=== PATIENT | female | born 1990 | race Caucasian/White ===

== ENCOUNTER 2019-01-01 08:02 | Emergency (ER) | payer BC, SELFPAY ==
[2019-01-01 08:03] VITALS: BP 208/98; PULSE 98; RESP 18; TEMP 36.6; O2SAT 98; BMI 42.9
--- NOTE | 2019-01-01 08:11 | US_ITS ---
STUDY: ULTRASOUND OF THE FEMALE PELVIS REASON FOR EXAM: Female, 28 years old. Menorrhagia. LMP: November 29, 2018. TECHNIQUE: Transvaginal TECHNICAL QUALITY: Adequate. COMPARISON: None. FINDINGS: The uterus is anteverted and is in a midline position. The uterus measures 6.2 x 3.5 x 2.9 cm. Normal uterine cervix. The endometrium measures 2 mm in thickness, and is hyperechoic. There is no demonstrated endometrial mass. There is no demonstrated myometrial mass. I.U.D. - The patient does not have an I.U.D. The right ovary is visualized. The right ovary measures 2.5 x 1.7 x 1.7 cm. There is no right ovarian cyst or ovarian mass. There is no visualized right adnexal mass or complex lesion. There is normal arterial and normal venous vascularity. The left ovary is visualized. The left ovary measures 2.8 x 1.9 x 1.7 cm. There is no left ovarian cyst or ovarian mass. There is no visualized left adnexal mass or complex lesion. There is normal arterial and normal venous vascularity. There is no fluid in the cul-de-sac. US/Transvaginal Non- IMPRESSION: Normal female pelvis. Electronically Signed: Vinny Laws MD at 9:46 EDT , Service support ,
--- NOTE | 2019-01-01 08:27 | ED.DCSUM_ITS ---
History of Present Illness Chief Complaint: Vag Bleeding Informant: Patient Onset: Month(s) Context: Gradual Onset Timing: Waxes and wanes Current Severity: Mild Maximum Severity: Moderate Narrative: Patient presents with more than 1 month of vaginal bleeding. She states she has bleeding daily. Sometimes she will have spotting sometimes heavy bleeding. She denies clots. She sometimes has abdominal cramping. She saw her primary care physician 2 weeks ago for this. Urine test in the office was negative. She was told to take another test in 1 week if she was still bleeding. She did this 1 week ago and it was also negative. Patient states prior to this her menstrual cycles were very regular. She is on oral contraceptive pills and does not remember missing significant doses. No history of bleeding disorder. Past Medical History - Allergies and Home Meds Allergies/Adverse Reactions: Allergies No Known Allergies Allergy (Verified 01/01/19 08:04) Primary Care Physician: Martinez Chappell [Primary Care Provider] - Prior records reviewed: Yes Past Medical History: - - Reviewed Surgical History: tonsillectomy Smoking Status: Never smoker Review of Systems General: Denies: Chills, Fever Eyes: Denies: Visual changes - bilaterally ENT: Denies: Bilateral ear pain Cardiovascular: Denies: Chest pain Respiratory: Denies: Dyspnea, Cough Gastrointestinal: Reports: Abdominal pain - Mild lower abdominal cramping. Denies: Nausea, Vomiting, Diarrhea Genitourinary: Denies: Dysuria Musculoskeletal: Denies: Back pain Skin: Denies: Rash Neurological: Denies: Headache Hematologic: Denies: Easy bruising, Easy bleeding Allergy: Denies: Uticaria Physical Exam Vital Signs/Narrative: Vital Signs Temp Pulse Resp BP Pulse Ox 01/01/19 08:03 97.8 F 98 18 208/98 H 98 Inital Vital Signs reviewed: Yes General: Well nourished, Well developed Head: Normocephalic ENT: Moist mucous membranes Neck: Supple Cardiovascular: Regular rate, Regular rhythm Respiratory: No distress, CTA bilaterally Abdomen: Soft, Nontender, Normal bowel sounds : - - Pelvic examination reveals no blood on exam. Cervix appears normal. No lesions or abrasions are noted. No discharge. Bimanual examination is nontender with no obvious masses. Extremities: Nontender, No edema Skin: Normal color, No rash Neurological: Alert, Oriented x3 Psychological: Normal affect Diagnostic/Tx/Re-eval Impressions Transvaginal US 01/01/19 08:11 IMPRESSION: Normal female pelvis. Electronically Signed: Vinny Laws MD at 9:46 EDT , Service support , 01/01/19 08:11 Transvaginal Non- [US] Stat Laboratory Results 01/01/19 01/01/19 01/01/19 08:20 08:20 08:20 WBC 10.6 RBC 4.42 Hgb 11.8 L Hct 37.4 MCV 84.6 MCH 26.7 L MCHC 31.6 L RDW Std Deviation 42.8 RDW Coeff of Khadar 13.8 Plt Count 432 MPV 9.5 Immature Gran % (Auto) 0.400 Neut % (Auto) 55.2 Lymph % (Auto) 35.0 [place] % (Auto) 7.1 Eos % (Auto) 1.6 Baso % (Auto) 0.7 Absolute Neuts (auto) 5.9 Absolute Lymphs (auto) 3.71 Nucleated RBC % 0 Sodium 139 Potassium 3.7 Chloride 104 Carbon Dioxide 25.0 Anion Gap 10 BUN 11 Creatinine 0.75 Estim Creat Clear Calc 98.16 Est GFR (MDRD) Af Amer 120 Est GFR (MDRD) Non-Af 99 BUN/Creatinine Ratio 14.7 Glucose 110 H Calcium 8.9 Serum , Qual NEGATIVE Urine Color Urine Clarity Urine pH Ur Specific [place] Urine Protein Urine Glucose (UA) Urine Ketones Urine Occult Blood Urine Nitrite Urine Bilirubin Urine Urobilinogen Ur Leukocyte Esterase Urine RBC Urine WBC Ur Squamous Epith Cells Urine Bacteria Urine Mucus 01/01/19 08:34 WBC RBC Hgb Hct MCV MCH MCHC RDW Std Deviation RDW Coeff of Khadar Plt Count MPV Immature Gran % (Auto) Neut % (Auto) Lymph % (Auto) [place] % (Auto) Eos % (Auto) Baso % (Auto) Absolute Neuts (auto) Absolute Lymphs (auto) Nucleated RBC % Sodium Potassium Chloride Carbon Dioxide Anion Gap BUN Creatinine Estim Creat Clear Calc Est GFR (MDRD) Af Amer Est GFR (MDRD) Non-Af BUN/Creatinine Ratio Glucose Calcium Serum , Qual Urine Color Yellow Urine Clarity Clear Urine pH 6.0 Ur Specific [place] 1.025 Urine Protein 15 H Urine Glucose (UA) Normal Urine Ketones 5 H Urine Occult Blood 150 H Urine Nitrite Negative Urine Bilirubin Negative Urine Urobilinogen Normal Ur Leukocyte Esterase 25 H Urine RBC 0-5 SEEN Urine WBC 0-5 SEEN Ur Squamous Epith Cells 0-5 SEEN Urine Bacteria 1+ Urine Mucus 2+ - Medical Decision Making Patient was given a dose of Toradol for cramping. On repeat evaluation she is resting comfortably. Blood pressure at time of discharge is 137/84. I discussed her test results with her. Her endometrial lining is only 2 mm thick at this point I do not anticipate much heavy bleeding. She does not have an MEDICAL INFORMATION OFFICER and will be referred to Dr. Ray, on-call for no doc. ED Disposition - Plan for ED Patient: Disposition: Home or Assisted Living Instructions: Menorrhagia Referrals: Martinez Chappell [Primary Care Provider] - Nay Ray MD [STAFF PHYSICIAN] - As soon as possible
[2019-01-01 08:34] LABS: Absolute Lymphocyte Count 3.71 X10^3/uL (0.83-4.51); Absolute Neutrophil Count 5.9 X10^3/uL (2.0-7.7); Basophil# 0.07 X10^3/uL; Basophil% 0.7 % (0-1); Eosinophil# 0.17 X10^3/uL; Eosinophils% 1.6 % (0-5); Hematocrit 37.4 % (37-47); Hemoglobin 11.8 g/dL (12.0-15.0); Lymphocyte # 3.71 X10^3/ul (4.0); Mean Corp Hgb Conc 31.6 g/dL (32-36); Mean Corpuscular Hgb 26.7 pg (27.0-32.0); Mean Corpuscular Volume 84.6 fL (81-99); Mean Platelet Vol. 9.5 fl (6.2-12.0); Monocyte# 0.75 X10^3/uL; Monocyte% 7.1 % (0-10); NRBC Flagged by Analyzer 0 % (0-5); Neutrophil # 5.85 X10^3/uL (2.7-7.7); Neutrophil % 55.2 % (47-70); Platelet Count 432 K/mm3 (150-450); RBC Distribution Width CV 13.8 % (11.6-14.6); RBC Distribution Width SD 42.8 fl (35.1-43.9); Red Blood Count 4.42 M/mm3 (4.2-5.4); White Blood Count 10.6 K/mm3 (4.4-11.0)
[2019-01-01 08:40] LABS: Internal QC Validated? YES +Cl - CLEAR BKGD; Pregnancy, Serum, hCG Quali. NEGATIVE Negative
[2019-01-01 08:42] LABS: Anion Gap 10 (5-15); BUN 11 mg/dL (7-18); BUN/Creat Ratio 14.7 RATIO (10-20); Calcium,Total 8.9 mg/dL (8.5-10.1); Chloride 104 mmol/L (98-107); Creatinine, Serum 0.75 mg/dL (0.55-1.02); EST Glomerular Filtration Rate 99 mL/min (>60); Est Glom Filt Rate - Afr Amer 120 mL/min (>60); Estimated Creatinine Clearance 98.16 ml/min; Glucose 110 mg/dL (74-106); Potassium 3.7 mmol/L (3.5-5.1); Sodium Level 139 mmol/L (136-145)
--- NOTE | 2019-01-01 08:47 | ED.RN ---
PT REQUESTING PAIN MEDICATION. DR EVANS AWARE. WAITING SOCIAL WORK. DOES NOT FEEL COMFORTABLE GIVEIN PT NARCOTICS FOR HIS CHRONIC PAIN. PT WAS GIVEN HIS NEURONIN AND BACLOFEN.
[2019-01-01 08:51] LABS: Color, Urine Yellow (Yellow); Glucose, Dipstick Normal (Normal); Ketone-Dipstick 5 mg/dl (Negative); Leukocyte Esterase-Dipstick 25 /ul (Negative); Nitrite-Dipstick Negative (Negative); Occult Blood-Urine 150 /ul (Negative); Protein-Dipstick 15 mg/dl (Negative); Specific Gravity, Urine 1.025 (1.002-1.030); Urine Bilirubin Dipstick Negative (Negative); Urine Clarity Clear (Clear); Urine Urobilinogen Normal (Normal)
[2019-01-01 09:00] VITALS: BP 158/90; PULSE 76; RESP 16
[2019-01-01 09:02] LABS: Bacteria 1+ /hpf (None Seen); Mucous, Urine 2+ /hpf (<or=2+); Red Blood Cells-Urine 0-5 SEEN /hpf (0-5); Squamous Epithelial Cells - UA 0-5 SEEN /hpf (5-10); White Blood Cells 0-5 SEEN /hpf (0-5)
[2019-01-01] MEDS: Ketorolac 30 MG/ML Syringe IV (09:07)
[2019-01-01 09:52] VITALS: BP 137/64
== END 2019-01-01 09:59 | disposition home or self-care (01) ==
PROVIDERS: Emergency Provider Emergency Medicine; Family Provider Family Medicine; PCP Family Medicine
DX: N92.0 Excessive and frequent menstruation with regular cycle (principal)
CPT/HCPCS: 76830; 80048; 81001; 84703; 85025; 96374; 99283; A4216

== ENCOUNTER 2019-03-26 18:21 | Emergency (ER) | payer SELFPAY ==
[2019-01-12 14:21] VITALS: BMI 42.9
[2019-03-26 18:22] VITALS: BP 154/112; PULSE 104; RESP 17; TEMP 36; O2SAT 97; BMI 46.4
--- NOTE | 2019-03-26 18:37 | ED.DCSUM_ITS ---
History of Present Illness Chief Complaint: Fall Informant: Patient Onset: Today Current Severity: Mild Maximum Severity: Mild Narrative: Patient presents after a fall. She stepped out of her house to go to work and fell on the icy steps. She landed on her buttocks. She complains of pain over the tailbone. She denies thoracic or lumbar pain. Pain does not shoot down her legs. Past Medical History - Allergies and Home Meds Allergies/Adverse Reactions: Allergies No Known Allergies Allergy (Verified 03/26/19 18:21) Primary Care Physician: Martinez Chappell [Primary Care Provider] - Past Medical History: None Surgical History: tonsillectomy Smoking Status: Never smoker Review of Systems General: Denies: Chills, Fever Eyes: Denies: Visual changes - bilaterally ENT: Denies: Bilateral ear pain Cardiovascular: Denies: Chest pain Respiratory: Denies: Dyspnea Gastrointestinal: Denies: Abdominal pain, Nausea, Vomiting Musculoskeletal: Reports: Back pain Skin: Denies: Rash Neurological: Denies: Weakness, Parasthesia Hematologic: Denies: Easy bruising Allergy: Denies: Uticaria Physical Exam Vital Signs/Narrative: Vital Signs Temp Pulse Resp BP Pulse Ox 03/26/19 18:22 96.8 F L 104 H 17 154/112 H 97 Inital Vital Signs reviewed: Yes General: Well nourished, Well developed Head: Normocephalic ENT: Moist mucous membranes Neck: Supple Cardiovascular: Regular rate, Regular rhythm Respiratory: No distress, CTA bilaterally Abdomen: Soft, Nontender Back: - - No tenderness of the thoracic or lumbar spine. Focal tenderness over the inferior sacrum and coccyx. Extremities: Nontender Skin: Normal color, No rash Neurological: Alert, Oriented x3, Normal Strength, Normal Sensation Psychological: Normal affect Diagnostic/Tx/Re-eval - Medical Decision Making I discussed with the patient that we could do x-rays of her tailbone, however it would not change our overall management. She would prefer to decline the x- rays. She will be given prescriptions for naproxen. She was instructed on use of stool softeners. She be given a work note for tonight. ED Disposition - Plan for ED Patient: Disposition: Home or Assisted Living Diagnosis: Fall, Coccyx contusion Instructions: CONTUSION, Coccyx/Sacrum Prescriptions: Naproxen [Naprosyn] 500 mg PO BID PRN PRN #20 tablet PRN Reason: Pain Score 4-10/10 Referrals: Martinez Chappell [Primary Care Provider] - 5-7 Days
[2019-03-26] MEDS: Naproxen 500 MG Tablet PO (18:44)
== END 2019-03-26 18:53 | disposition home or self-care (01) ==
LOC: ED 18:44
PROVIDERS: Emergency Provider Emergency Medicine; Family Provider Family Medicine; PCP Family Medicine
DX: S30.0XXA Contusion of lower back and pelvis, initial encounter (principal); W00.1XXA Fall from stairs and steps due to ice and snow, initial encounter; Y93.01 Activity, walking, marching and hiking; Y92.008 Other place in unspecified non-institutional (private) residence as the place of occurrence of the external cause
CPT/HCPCS: 99283

== ENCOUNTER → 2019-06-16 12:50 | Outpatient (CLI) | payer MEDICAID, SELFPAY ==
[2019-06-16 12:02] VITALS: BMI 46.4
[2019-06-16 13:26] LABS: Absolute Lymphocyte Count 2.64 X10^3/uL (0.83-4.51); Absolute Neutrophil Count 7.6 X10^3/uL (2.0-7.7); Basophil# 0.03 X10^3/uL; Basophil% 0.3 % (0-1); Eosinophil# 0.09 X10^3/uL; Eosinophils% 0.8 % (0-5); Hematocrit 37.8 % (37-47); Hemoglobin 12.2 g/dL (12.0-15.0); Lymphocyte # 2.64 X10^3/ul (4.0); Lymphocyte % 24.2 % (19-41); Mean Corp Hgb Conc 32.3 g/dL (32-36); Mean Corpuscular Hgb 27.5 pg (27.0-32.0); Mean Corpuscular Volume 85.1 fL (81-99); Mean Platelet Vol. 9.3 fl (6.2-12.0); Monocyte# 0.49 X10^3/uL; Monocyte% 4.5 % (0-10); NRBC Flagged by Analyzer 0 % (0-5); Neutrophil # 7.61 X10^3/uL (2.7-7.7); Neutrophil % 69.8 % (47-70); Platelet Count 476 K/mm3 (150-450); RBC Distribution Width CV 14.8 % (11.6-14.6); RBC Distribution Width SD 45.4 fl (35.1-43.9); Red Blood Count 4.44 M/mm3 (4.2-5.4); White Blood Count 10.9 K/mm3 (4.4-11.0)
[2019-06-16 13:41] LABS: Glucose Challenge Gest 1H 50g 125 mg/dL (70-140)
[2019-06-16 14:27] LABS: HIV - WCH Non-Reactive (Nonreactive); Hepatitis B Surface Antigen Non-Reactive (Nonreactive); Hepatitis C Antibody Non-Reactive (Nonreactive); Rubella IgG 181.3 IU/mL
[2019-06-16 16:28] LABS: Amphetamine Urine VISTA NEGATIVE (<1000 ng/mL); Barbiturate Urine VISTA NEGATIVE (< 200 ng/mL); Benzodiazepine Urine VISTA NEGATIVE (< 200 ng/mL); Cocaine Urine VISTA NEGATIVE (< 300 ng/mL); Ecstacy Urine VISTA NEGATIVE (< 500 ng/mL); Methadone Urine VISTA NEGATIVE (< 300 ng/mL); PCP Urine VISTA NEGATIVE (< 25 ng/mL); THC Urine VISTA NEGATIVE (< 50 ng/mL); Vista UDS pH Range 6
[2019-06-16 17:46] LABS: Chlamydia Trachomatis by PCR Negative (Negative); Neisserai gonorrhoeae by PCR Negative (Negative); Probe Check PASS; Sample Adequacy Control PASS; Specimen Processing Control PASS
[2019-06-17 04:37] LABS: Rapid Plasmin Reagin (RPR) NONREACTIVE (NONREACTIVE)
[2019-06-23 12:06] LABS: HPV Reflexed? NOT INDICATED
== END ==
PROVIDERS: PCP Family Medicine; Referring Provider Obstetrics & Gynecology; Visit Provider Obstetrics & Gynecology
DX: O99.210 Obesity complicating pregnancy, unspecified trimester (principal); E66.9 Obesity, unspecified; Z12.4 Encounter for screening for malignant neoplasm of cervix; Z3A.00 Weeks of gestation of pregnancy not specified
CPT/HCPCS: 36415; 80307; 82950; 85025; 86592; 86703; 86762; 86803; 86850; 86900; 86901; 87086; 87088; 87340; 87491; 87591; 88175; G0145

== ENCOUNTER → 2019-06-30 09:02 | Outpatient (CLI) | payer MEDICAID, SELFPAY ==
[2019-06-16 12:02] VITALS: BMI 46.4
--- NOTE | 2019-06-30 09:05 | US_ITS ---
STUDY: FIRST TRIMESTER OBSTETRICAL ULTRASOUND REASON FOR EXAM: Female, 29 years old DATING LMP: April 28, 2019. TECHNIQUE: Transvaginal TECHNICAL QUALITY: Adequate. PRIOR ULTRASOUND: None. FINDINGS: There is visualization of a single gestational sac in a normal intrauterine position. There is a visualized yolk sac. The yolk sac measures 3 mm. The placenta is non-visualized. There is visualization of a live embryo. The crown-rump length (CRL) measures 1.4 cm, indicating an estimated gestational age (EGA) of 7 weeks, 5 days. There is demonstrated cardiac activity with a heart rate of 150 bpm. The estimated gestation age (EGA) by LMP is 9 weeks, 0 days. The estimated date of delivery (RONALDO) by LMP is February 02, 2020. The estimated gestation age (EGA) by US is 7 weeks, 5 days. The estimated date of delivery (RONALDO) by US is February 11, 2020. The uterus measures 9.9 cm x 6.4 cm x 5.6 cm. There is no demonstrated uterine fibroid. The cervix is closed. The right ovary measures 3.1 cm x 1.7 cm x 2.1 cm. There is no right ovarian cyst. There is no visualized right adnexal mass or complex lesion. The left ovary measures 3.8 cm x 2 cm x 2.3 cm. There is no left ovarian cyst. There is no visualized left adnexal mass or complex lesion. There is no fluid in the cul de sac. US/Transvaginal w/Preg US IMPRESSION: Single live intrauterine gestation with a mean gestational age of 7 weeks and 5 days. Electronically Signed: Nicanor Pratt, at 10:45 EDT , Service support ,
== END ==
PROVIDERS: PCP Family Medicine; Referring Provider Obstetrics & Gynecology; Visit Provider Obstetrics & Gynecology
DX: Z34.91 Encounter for supervision of normal pregnancy, unspecified, first trimester (principal)
CPT/HCPCS: 76817

== ENCOUNTER → 2019-07-26 11:54 | Outpatient (CLI) | payer MEDICAID, SELFPAY ==
[2019-07-26 11:28] VITALS: BMI 46.4
[2019-07-26 12:58] LABS: NATERA MAILED SPECIMEN
== END ==
PROVIDERS: PCP Family Medicine; Referring Provider Nurse Practitioner Women's Health; Visit Provider Nurse Practitioner Women's Health
DX: Z34.81 Encounter for supervision of other normal pregnancy, first trimester (principal)
CPT/HCPCS: 36415

== ENCOUNTER → 2019-08-31 13:01 | Outpatient (CLI) | payer MEDICAID, SELFPAY ==
[2019-08-23 11:49] VITALS: BMI 46.4
== END ==
PROVIDERS: PCP Family Medicine; Referring Provider Obstetrics & Gynecology; Visit Provider Obstetrics & Gynecology
DX: Z36.9 Encounter for antenatal screening, unspecified (principal)

== ENCOUNTER → 2019-09-21 18:03 | Outpatient (CLI) | payer MEDICAID, SELFPAY ==
[2019-09-21 11:26] VITALS: BMI 46.4
== END ==
PROVIDERS: PCP Family Medicine; Visit Provider Obstetrics & Gynecology
DX: Z11.59 Encounter for screening for other viral diseases (principal)
CPT/HCPCS: 87635; G2023; U0003

== ENCOUNTER → 2019-11-15 12:38 | Outpatient (CLI) | payer MEDICAID, SELFPAY ==
[2019-10-18 13:12] VITALS: BMI 49.7
[2019-11-15 12:54] LABS: Absolute Lymphocyte Count 2.09 X10^3/uL (0.83-4.51); Absolute Neutrophil Count 9.1 X10^3/uL (2.0-7.7); Basophil# 0.03 X10^3/uL; Basophil% 0.3 % (0-1); Eosinophil# 0.11 X10^3/uL; Eosinophils% 0.9 % (0-5); Hematocrit 33.4 % (37-47); Hemoglobin 10.5 g/dL (12.0-15.0); Lymphocyte # 2.09 X10^3/ul (4.0); Lymphocyte % 17.6 % (19-41); Mean Corp Hgb Conc 31.4 g/dL (32-36); Mean Corpuscular Hgb 26.6 pg (27.0-32.0); Mean Corpuscular Volume 84.8 fL (81-99); Mean Platelet Vol. 9.8 fl (6.2-12.0); Monocyte% 4.2 % (0-10); NRBC Flagged by Analyzer 0 % (0-5); Neutrophil # 9.07 X10^3/uL (2.7-7.7); Neutrophil % 76.2 % (47-70); Platelet Count 392 K/mm3 (150-450); RBC Distribution Width CV 14.7 % (11.6-14.6); RBC Distribution Width SD 45.2 fl (35.1-43.9); Red Blood Count 3.94 M/mm3 (4.2-5.4); White Blood Count 11.9 K/mm3 (4.4-11.0)
[2019-11-15 13:25] LABS: Glucose Challenge Gest 1H 50g 117 mg/dL (70-140)
== END ==
PROVIDERS: PCP Family Medicine; Referring Provider Obstetrics & Gynecology; Visit Provider Obstetrics & Gynecology
DX: Z34.90 Encounter for supervision of normal pregnancy, unspecified, unspecified trimester (principal)
CPT/HCPCS: 36415; 82950; 85025

== ENCOUNTER 2019-12-01 11:15 | Outpatient (CLI) | payer MEDICAID, SELFPAY ==
[2019-12-01] VITALS (11 sets, daily range): BP systolic 105–135; BP diastolic 56–76; PULSE 86–101; BMI 49.7; BMI 49.9
[2019-12-01 12:16] LABS: Protein, Urine (Random) 13.5 mg/dL (<11.9); Protein:Creat Ratio 110 mg/g CRE (0-200)
[2019-12-01 12:21] LABS: Hematocrit 30.9 % (37-47); Hemoglobin 9.7 g/dL (12.0-15.0); Mean Corp Hgb Conc 31.4 g/dL (32-36); Mean Corpuscular Hgb 26.2 pg (27.0-32.0); Mean Corpuscular Volume 83.5 fL (81-99); Mean Platelet Vol. 9.7 fl (6.2-12.0); Platelet Count 382 K/mm3 (150-450); RBC Distribution Width CV 14.9 % (11.6-14.6); RBC Distribution Width SD 45.2 fl (35.1-43.9); White Blood Count 10.1 K/mm3 (4.4-11.0)
[2019-12-01 12:29] LABS: International Normalized Ratio 1.1; Prothrombin Time (Protime)PT. 13.7 SECONDS (11.7-14.9)
[2019-12-01 13:08] LABS: AST(SGOT) 12 U/L (15-37); Alanine Aminotransfer ALT/SGPT 13 U/L (13-56); EST Glomerular Filtration Rate 155 mL/min (>60); Est Glom Filt Rate - Afr Amer 187 mL/min (>60); Estimated Creatinine Clearance 139.81 ml/min; Uric Acid 4.6 mg/dL (2.6-6.0)
--- NOTE | 2019-12-02 10:09 | OB.TRI.PN ---
Progress Notes Date of Service: 12/01/19 Progress Note: 29yo G1 at 29 weeks gestation sent to triage for evaluation of elevated blood pressures. BPs were mild range in the office, but were normal throughout her triage course. Asymptomatic. PreE labs sent and negative. NST was reactive. Discharged to home in stable condition with close outpatient follow-up. Laboratory Studies: Laboratory Tests 12/01/19 12/01/19 12/01/19 Range/Units 12:00 12:00 12:00 WBC 10.1 (4.4-11.0) K/mm3 RBC 3.70 L (4.2-5.4) M/mm3 Hgb 9.7 L (12.0-15.0) g/dL Hct 30.9 L (37-47) % MCV 83.5 (81-99) fL MCH 26.2 L (27.0-32.0) pg MCHC 31.4 L (32-36) g/dL RDW Std Deviation 45.2 H (35.1-43.9) fl RDW Coeff of Khadar 14.9 H (11.6-14.6) % Plt Count 382 (150-450) K/mm3 MPV 9.7 (6.2-12.0) fl PT 13.7 (11.7-14.9) SECONDS INR 1.1 APTT 31.0 (24.1-36.2) Seconds Creatinine 0.50 L (0.55-1.02) mg/dL Estim Creat Clear Calc 139.81 ml/min Est GFR (MDRD) Af Amer 187 (>60) mL/min Est GFR (MDRD) Non-Af 155 (>60) mL/min Uric Acid 4.6 (2.6-6.0) mg/dL AST 12 L (15-37) U/L ALT 13 (13-56) U/L U Random Total Protein (<11.9) mg/dL Urine Creatinine (NO RANGE EST.) mg/dL Protein/Creatinin Ratio (0-200) mg/g CRE 12/01/19 Range/Units 11:52 WBC (4.4-11.0) K/mm3 RBC (4.2-5.4) M/mm3 Hgb (12.0-15.0) g/dL Hct (37-47) % MCV (81-99) fL MCH (27.0-32.0) pg MCHC (32-36) g/dL RDW Std Deviation (35.1-43.9) fl RDW Coeff of Khadar (11.6-14.6) % Plt Count (150-450) K/mm3 MPV (6.2-12.0) fl PT (11.7-14.9) SECONDS INR APTT (24.1-36.2) Seconds Creatinine (0.55-1.02) mg/dL Estim Creat Clear Calc ml/min Est GFR (MDRD) Af Amer (>60) mL/min Est GFR (MDRD) Non-Af (>60) mL/min Uric Acid (2.6-6.0) mg/dL AST (15-37) U/L ALT (13-56) U/L U Random Total Protein 13.5 H (<11.9) mg/dL Urine Creatinine 123.00 (NO RANGE EST.) mg/dL Protein/Creatinin Ratio 110 (0-200) mg/g CRE - Problem List (1) Elevated blood pressure affecting in third trimester, antepartum Status: Acute Comment: intermittent, nl pree workup 11/26. recommend weekly visits until delivery, home bp monitoring. reviewed parameters Multi Select Codes - Urinary/Genital Urinary/Genital CPT Codes: 45307-62 non-stress test Interp
== END 2019-12-01 13:30 | disposition home or self-care (01) ==
PROVIDERS: PCP Family Medicine; Referring Provider Obstetrics & Gynecology; Visit Provider Obstetrics & Gynecology
DX: O16.3 Unspecified maternal hypertension, third trimester (principal); Z3A.29 29 weeks gestation of pregnancy
CPT/HCPCS: 36415; 59025; 59050; 82565; 82570; 84156; 84450; 84460; 84550; 85027; 85610; 85730; 99218; G0378

== ENCOUNTER → 2019-12-09 12:29 | Outpatient (CLI) | payer MEDICAID, SELFPAY ==
[2019-12-06 14:05] VITALS: BMI 49.9
[2019-12-09 12:38] VITALS: BP 129/73; PULSE 93; RESP 16; TEMP 36.2; O2SAT 96; BMI 51.2
[2019-12-09] MEDS: 0.9% NaCl IVPB Med Flush (250 mL) 15 ML IV (12:41)
[2019-12-09] MEDS: 0.9% NaCl Peripheral Flush Adult/Peds IV (12:42)
[2019-12-09 15:02] VITALS: BP 128/69; PULSE 85; RESP 18; O2SAT 97
== END ==
PROVIDERS: PCP Family Medicine; Referring Provider Obstetrics & Gynecology; Visit Provider Obstetrics & Gynecology
DX: O99.019 Anemia complicating pregnancy, unspecified trimester (principal); Z3A.00 Weeks of gestation of pregnancy not specified
CPT/HCPCS: 96365; 96366; J1756; J7050; A4216

== ENCOUNTER → 2019-12-16 12:17 | Outpatient (CLI) | payer MEDICAID, SELFPAY ==
[2019-12-06 14:05] VITALS: BMI 49.9
[2019-12-09 12:38] VITALS: BMI 51.2
[2019-12-16 12:22] VITALS: BP 138/77; PULSE 110; RESP 16; TEMP 36.2; O2SAT 95; BMI 51.3
[2019-12-16] MEDS: 0.9% NaCl IVPB Med Flush (250 mL) 15 ML IV (12:34)
[2019-12-16] MEDS: 0.9% NaCl Peripheral Flush Adult/Peds IV (12:34)
[2019-12-16 14:41] VITALS: BP 124/69; PULSE 100; RESP 16; TEMP 36.6; O2SAT 96
== END ==
PROVIDERS: PCP Family Medicine; Referring Provider Obstetrics & Gynecology; Visit Provider Obstetrics & Gynecology
DX: O99.019 Anemia complicating pregnancy, unspecified trimester (principal); D64.9 Anemia, unspecified; Z3A.00 Weeks of gestation of pregnancy not specified
CPT/HCPCS: 96365; 96366; J1756; J7050; A4216

== ENCOUNTER → 2019-12-19 | Outpatient (CLI) | payer MEDICAID, SELFPAY ==
[2019-12-19 14:55] VITALS: BMI 51.9
== END | disposition home or self-care (01) ==
LOC: LABSPEC 16:47
PROVIDERS: PCP Family Medicine; Referring Provider Nurse Practitioner Women's Health; Visit Provider Nurse Practitioner Women's Health
DX: O26.899 Other specified pregnancy related conditions, unspecified trimester (principal); R10.9 Unspecified abdominal pain; Z3A.00 Weeks of gestation of pregnancy not specified
CPT/HCPCS: 87086; 87088

== ENCOUNTER → 2019-12-20 14:58 | Outpatient (CLI) | payer MEDICAID, SELFPAY ==
[2019-10-18 13:12] VITALS: BMI 49.7
[2019-12-19 14:55] VITALS: BMI 51.9
--- NOTE | 2019-12-20 14:58 | US_ITS ---
STUDY: SECOND AND THIRD TRIMESTER OBSTETRICAL ULTRASOUND - LIMITED REASON FOR EXAM: Female, 29 years old. Growth. LMP: 04/28/2019. PRIOR ULTRASOUND: 06/30/2019. TECHNIQUE: Transabdominal TECHNICAL QUALITY: Adequate. FINDINGS: There is a single intrauterine fetus. The fetus is in a cephalic presentation. There is demonstrated cardiac activity with a heart rate of 162 bpm. There is a normal amniotic fluid volume. The largest amniotic fluid pocket measures 5.14 cm. The amniotic fluid index (FELICE) is 10.04 cm. The placenta is posterior in location and is not low lying. There are Grade 0 placental changes. The cervix measures 3.1 cm cm in length. BIOMETRY: BPD: 8.52 cm: 34 weeks, 2 days HC: 30.65 cm: 34 weeks, 1 days AC: 29.48 cm: 33 weeks, 3 days FL: 6.15 cm: 31 weeks, 6 days Age by LMP: 33 weeks, 5 days. RONALDO by LMP: 02/02/2020. age by prior US: 32 weeks, 3 days. RONALDO by prior US: 02/11/2020. age by current US: 33 weeks, 4 days. RONALDO by current US: 02/03/2020.. Estimated weight: 2155 grams, +/- 323 grams, 33 percentile. Gender: Indeterminant US/OB Limited With Biometrics IMPRESSION: 1. Single live intrauterine at 33 weeks, 4 days. RONALDO is 02/03/2020. There is adequate interval growth since prior ultrasound. 2. EFW of 2155 g. 3. FELICE 10.04 cm. 4. Posterior grade 0 placenta. 5. VERTEX presentation. Electronically Signed: Dino Castellanos DO at 22:48 EDT Tel [phone], Service support ,
== END ==
PROVIDERS: PCP Family Medicine; Referring Provider Obstetrics & Gynecology; Visit Provider Obstetrics & Gynecology
DX: O99.210 Obesity complicating pregnancy, unspecified trimester (principal); E66.9 Obesity, unspecified; Z3A.00 Weeks of gestation of pregnancy not specified
CPT/HCPCS: 76816

== ENCOUNTER → 2019-12-23 12:25 | Outpatient (CLI) | payer MEDICAID, SELFPAY ==
[2019-12-06 14:05] VITALS: BMI 49.9
[2019-12-23 11:41] VITALS: BMI 51.3
[2019-12-23 12:31] VITALS: BP 143/68; PULSE 92; RESP 16; TEMP 36.8; O2SAT 98; BMI 52.4
[2019-12-23] MEDS: 0.9% NaCl Peripheral Flush Adult/Peds IV (12:55)
[2019-12-23] MEDS: 0.9% NaCl IVPB Med Flush (250 mL) 15 ML IV (12:57)
[2019-12-23 15:00] VITALS: BP 137/64; PULSE 91; RESP 16; TEMP 36.8; O2SAT 98
== END ==
PROVIDERS: PCP Family Medicine; Referring Provider Obstetrics & Gynecology; Visit Provider Obstetrics & Gynecology
DX: O99.019 Anemia complicating pregnancy, unspecified trimester (principal)
CPT/HCPCS: 96365; 96366; J1756; J7050; A4216

== ENCOUNTER → 2020-01-17 14:23 | Outpatient (CLI) | payer MEDICAID, SELFPAY ==
[2019-10-18 13:12] VITALS: BMI 49.7
[2020-01-17 13:23] VITALS: BMI 53.4
--- NOTE | 2020-01-17 14:28 | US_ITS ---
STUDY: SECOND AND THIRD TRIMESTER OBSTETRICAL ULTRASOUND REASON FOR EXAM: Female, 29 years old growth LMP: 05/07/2019. TECHNIQUE: Transabdominal TECHNICAL QUALITY: Adequate. PRIOR ULTRASOUND: Comparison is made with prior study dated 12/20/2019. FINDINGS: There is a single intrauterine fetus. The fetus is in a cephalic presentation. There is demonstrated cardiac activity with a heart rate of 140 bpm. There is a normal amniotic fluid volume. The largest amniotic fluid pocket measures 5.4 cm. The amniotic fluid index (FELICE) is 16.7 cm. The placenta is fundal in location. There are Grade 2 placental changes. The cervix measures 3.3 cm in length. The adnexal regions are not visualized. BIOMETRY: BPD: 9.4 cm: 38 weeks, 0 days HC: 33.2 cm: 37 weeks, 5 days AC: 33.7 cm: 37 weeks, 3 days FL: 7 cm: 36 weeks, 0 days CI: 85.5% FL/BPD: 75% FL/HC: FL/AC: 21% HC/AC: 0.99 age by current US: 36 weeks, 6 days. RONALDO by current US: 02/08/2020. Estimated weight: 3203 grams, +/- 480 grams, 78 %. age by prior US: 37 weeks, 4 days. RONALDO by prior US: 02/03/2020. Age by LMP: 36 weeks, 3 days. RONALDO by LMP: 02/11/2020. US/OB Limited With Biometrics IMPRESSION: Single live intrauterine gestation with a mean gestational age of 36 weeks and 4 days. The measurements obtained today fail with thin normal expected range. Electronically Signed: Nicanor Pratt, at 15:43 EDT , Service support ,
== END ==
PROVIDERS: PCP Family Medicine; Referring Provider Obstetrics & Gynecology; Visit Provider Obstetrics & Gynecology
DX: O09.93 Supervision of high risk pregnancy, unspecified, third trimester (principal); Z3A.36 36 weeks gestation of pregnancy
CPT/HCPCS: 76816; 87081

== ENCOUNTER 2020-02-05 16:15 | Inpatient (IN) | payer MEDICAID, SELFPAY ==
[2020-01-31 13:16] VITALS: BMI 54.3
[2020-02-05] VITALS (13 sets, daily range): BP systolic 97–149; BP diastolic 50–81; PULSE 81–101; RESP 16; TEMP 36.7–37; O2SAT 95–97; BMI 55.3
--- NOTE | 2020-02-05 17:15 | NURSING ---
1710 (Late Entry) call placed to Dr. Ray notifiying her that pt is grossly ruptured, cervical dilation 1 cm and sky every 2-5 minutes. plan is to admit pt. if in 6 hours pt is not making cervical change, initiate pitocin drip
--- NOTE | 2020-02-05 17:36 | PCM.HPOB.BLA ---
- Problem List (1) SROM (spontaneous rupture of membranes) Status: Acute (2) 35 weeks gestation of Status: Acute Comment: covid testing ordered 01/11/20c (scheduled for 01/31/20 9:55) (3) Anemia affecting Status: Acute Comment: hemaglobin 10.5 recheck cbc in 4 weeks (4) Anxiety Status: Acute Comment: celexa ordered 10/17, counseling encouraged (5) Influenza vaccine administered Status: Acute Comment: 11/29/2019sc (6) Iron deficiency anemia during Status: Acute Comment: iron supplement, repeta cbc 1 month (7) Obesity affecting Status: Acute Qualifiers: Comment: nl 1 tm glucola, discussed healthy weight gain. plan growth us q 4 weeks and weekly nsts after 32 weeks. NL growth 01/17 (8) Status: Acute Qualifiers: Comment: NIPT- low risk male. declined carrier screening. AFP- neg. nl anatomy us (9) Supervision of high risk , antepartum Status: Acute Comment: PRR RONALDO 02/11/20 boy Yair Jacobsen History and Physical Date of Admission: 02/05/20 Intake Vital Signs 01/31/20 Height 5 ft 3 in 01/31/20 Weight: 307 lb 01/31/20 BMI 54.3 01/31/20 BP 126/76 H Intake Visit Reasons: est ob 38w/NST [employer] Required: No Is patient in pain?: No Allergies No Known Allergies Allergy (Verified 01/31/20 13:16) Medications docosahexaenoic acid 200 mg capsule mg PO 06/16/19 [History Confirmed 01/31/20] ondansetron 4 mg disintegrating tablet 4 mg PO Q4H PRN #60 tab 07/26/19 [Rx Confirmed 01/31/20] ferrous sulfate 325 mg (65 mg iron) tablet 325 mg PO BID 12/06/19 [History Confirmed 01/31/20] Citalopram [Celexa] 40 mg PO DAILY 12/09/19 [History Confirmed 01/31/20] Last Menstral Period: 04/26/19 Zika: Zika virus screening: Negative : No PFSH PFSH Surgical History History of tonsillectomy and adenoidectomy (Acute) Family History Father Diabetes Hypertension Social History (Updated 01/31/20 @ 13:[address] Nay Ray MD) Smoking Status: Never smoker alcohol intake: never substance use type: does not use seatbelt use: always do you feel safe at home: Yes additional social history: Ilmnagqci-[id number]-[id number] Patient is [employer] Pregancy History 1 Elective abortions Hx Para Spontaneous abortions Hx # Term Pregnancies Ectopic pregnancies Hx # Pregnancies Multiple births # of living children HPI est ob 38w/NST: Details: SIGIFREDO GOMZE is a 29 year old presents at 39 weeks 1 day with clear spontaneous rupture membranes and irregular contractions. Patient has had a complicated by morbid obesity but is otherwise done very well. 1 cm in the office this week and is still 1 cm but sky. No signs or symptoms of infection. OB Visit RONALDO Calculator Estimated Delivery Date Method Current WG Current Estimate 02/11/20 Ultrasound #2 38w 3d Other Estimates 01/28/20 LMP (Certain) 40w 3d 02/17/20 Ultrasound #1 37w 4d Expected Delivery Route/Plan Labor Preferences- CB/BF classes: november labor support person: Delmar labor intervention preferences: none pain management options preferred:epidural cut cord/dad catch: maybe : yes PP control planned: undecided discussed possible routes of delivery and associated risks: discussed possible delivery modalities and possible indications for each including R/B/A of , VAVD, and CS. questions answered. special requests: none Specific Issue/Plans flu vaccine: given tdap vaccine: given 11/14 rhogam: na LARC form signed: yes movement and labor precautions reviewed. Problem list reviewed and updated with the most current plan of care details and appropriate orders placed. Relevant counseling for the gestational age provided. Continue routine care and follow up unless otherwise noted in visit notes/problem list details Initial Weight: 270 lb Date EGA Weight BP Urine Prot Glucose FHR FuHt Pres Dilation Effaced St Visit Note 07/26/19 11w 3d 270 lb 6 oz (+6 oz) 130/78 Negative Negative 161 MH-nausea more problematic/Rx zofran. Denies VB, LOF. NIPT today. Anatomy US scheduled MH-nausea more problematic/Rx zofran. Denies VB, LOF. NIPT today. Anatomy US scheduled. BP slightly elevated on arrival, states anxious with appt. BP WNL after visit. 08/23/19 15w 3d 273 lb (+3 lb) 128/80 Negative Negative 157 mH-nausea improved. NO VB, LOF. Plans AFP next week. 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 no known covid positive contacts, but recommend covid outpatient testing. no vb lof discussed bp today, patient anxious, recommend fu bps for the next week checking at work/home 10/18/19 23w 3d 281 lb (+11 lb) 132/78 Negative Negative 145 SM- no vb lof good fm no regular ctx 11/15/19 27w 3d 285 lb (+15 lb) 120/72 Negative Negative 140 27 SM- no vb lof good fm nor egular ctx, recommend increasing celexa due to anxiety, declines counseling. 11/29/19 29w 3d 284 lb (+14 lb) 136/82 140 SM- seen over the weekend due to eelvated bps, evaluated at [facility] and neg proteinuria and normal labs. highest bp in triage was 140/90. repeat today nl. no vb lof good fm no regualr ctx. recommend home bp monitoring, weekly visits for rest of 12/06/19 30w 3d 289 lb (+19 lb) 128/64 Negative Negative 145 30 SM- no vb lof good fm no regular ctx. repeat bps all normal now after stopping working. 12/19/19 32w 2d 293 lb (+23 lb) 134/66 Negative Negative 136 33 MH-work in for lower left pelvic pain. States urine is dark and has odor. No Vb, LOF, CTX and has good FM. MH-work in for lower left pelvic pain. States urine is dark and has odor. No Vb, LOF, CTX and has good FM. UA neg, culture pending. Increase fluids. Elyse band, tylenol prn. 12/23/19 32w 6d 296 lb (+26 lb) 138/64 GP - NST only visit. Reactive NST. 12/26/19 33w 2d 296 lb (+26 lb) 134/64 Negative Negative GP - NST only visit. NST reactive. GP - NST visit. Denies contractions, LOF, VB, DFM. NST reactive. 01/03/20 34w 3d 299 lb 6 oz (+29 lb 6 oz) 132/80 Negative Negative SM- NST no vb lof good fm no regular ctx 01/10/20 35w 3d 299 lb 2 oz (+29 lb 2 oz) 130/70 Negative Negative 140 NST only reactive/MH 01/17/20 36w 3d 302 lb (+32 lb) Negative Negative 140 SM- no vb lof good fm no regular ctx 01/24/20 37w 3d 307 lb 6 oz (+37 lb 6 oz) 124/82 Negative Negative 140 SM- no vb lof good fm no reuglar ctx 01/31/20 38w 3d 307 lb (+37 lb) 126/76 Negative Negative 140 SM- no vb lof good fm no regular ctx co hip pain pelvic pain Diagnostics Diagnostics Details: HIV: Urine Culture: Sequential Screen: NIPT Screen: ROS Const Reports system reviewed and no additional complaints, except as documented Card Reports system reviewed and no additional complaints, except as documented Resp Reports system reviewed and no additional complaints, except as documented GI Reports system reviewed and no additional complaints, except as documented, Reports nausea Reports system reviewed and no additional complaints, except as documented Musc Reports system reviewed and no additional complaints, except as documented all other systems reviewed and negative Exam Const General: cooperative, healthy appearing, comfortable HENMT Head: normal to inspection Nose: external nose normal Face and sinus: normal facial exam Neck Neck: normal visual inspection, full ROM, no lymphadenopathy Thyroid: thyroid normal Chest Chest palpation & inspection: normal inspection of the chest Resp Effort & Inspection: normal respiratory effort GI Inspection: normal to inspection Palpation: soft, other (gravid uterus) Other: infant vertex and appropriate size for gestational age Other: Cervical Exam: /-2 Extrem General: pedal edema Office Procedures OB NST Non-Stress Test Indications for Monitoring: Yes Morbid obesity Heart Rate Baseline: 140 Heart Rate Variability: moderate Movement: Present Heart Rate Accelerations: Present Decelerations: Absent Contractions: Absent Impression: Yes Reactive Non-Stress Test Category 1 Results POC Urinalysis 2 Dip (Clinic) Office Urine Glucose Negative Last Edit by Sintia Knight on 01/31/20 13:23 Office Urine Protein Negative Last Edit by Sintia Knight on 01/31/20 13:23 Assessment & Plan Problems 1. Supervision of high risk , antepartum O09.90 PRR RONALDO 02/11/20 benoit Jacobsen 2. Z34.90 NIPT- low risk male. declined carrier screening. AFP- neg. nl anatomy us 3. Obesity affecting O99.210 nl 1 tm glucola, discussed healthy weight gain. plan growth us q 4 weeks and weekly nsts after 32 weeks. NL growth 01/17 4. Anxiety F41.9 celexa ordered 10/17, counseling encouraged 5. Anemia affecting O99.019 hemaglobin 10.5 recheck cbc in 4 weeks 6. Iron deficiency anemia during O99.019; D50.9 iron supplement, repeta cbc 1 month 7. Influenza vaccine administered Z23 11/29/2019sc 8. 35 weeks gestation of Z3A.35 covid testing ordered 01/11/20c (scheduled for 01/31/20 9:55) Patient presents [IAL, plan expectant management for , pitocin/AROM PRN if needed]. Pain management: [plans epidural]. GBS negative. Management of any complications: Morbid obesity I have reviewed the [facility] and made any clinically relevant updates. Orders Orders: OB NST Today O09.90, O99.210 POC Urinalysis 2 Dip (Clinic) Today O09.90, O99.210 Coding Level of Care Code Off vis,est,level 3 Diagnoses Supervision of high risk , antepartum O09.90 Z34.90 Obesity affecting O99.210 Anxiety F41.9 Anemia affecting O99.019 Iron deficiency anemia during O99.019; D50.9 Influenza vaccine administered Z23 35 weeks gestation of Z3A.35 Additional Codes Non-Stress Test (48128)
[2020-02-05 18:26] LABS: Absolute Lymphocyte Count 1.67 X10^3/uL (0.83-4.51); Absolute Neutrophil Count 9.3 X10^3/uL (2.0-7.7); Basophil# 0.02 X10^3/uL; Basophil% 0.2 % (0-1); Eosinophil# 0.06 X10^3/uL; Eosinophils% 0.5 % (0-5); Hemoglobin 10.4 g/dL (12.0-15.0); Lymphocyte # 1.67 X10^3/ul (4.0); Lymphocyte % 13.9 % (19-41); Mean Corp Hgb Conc 31.5 g/dL (32-36); Mean Corpuscular Hgb 27.2 pg (27.0-32.0); Mean Corpuscular Volume 86.2 fL (81-99); Mean Platelet Vol. 10.3 fl (6.2-12.0); Monocyte# 0.75 X10^3/uL; Monocyte% 6.3 % (0-10); NRBC Flagged by Analyzer 0 % (0-5); Neutrophil # 9.34 X10^3/uL (2.7-7.7); Neutrophil % 77.8 % (47-70); Platelet Count 386 K/mm3 (150-450); RBC Distribution Width SD 53.4 fl (35.1-43.9); Red Blood Count 3.83 M/mm3 (4.2-5.4)
[2020-02-05] MEDS: Lactated Ringers 500 ML 999 ML IV ×2 (21:55→23:35)
[2020-02-05] MEDS: Oxytocin 30 units/NS 500 ml 30 UNITS/500 ML IV.SOLN IV (21:55)
[2020-02-05] MEDS: Lactated Ringers 1,000 ML 200 ML IV (22:30)
[2020-02-06] VITALS (69 sets, daily range): BP systolic 108–175; BP diastolic 56–95; PULSE 76–111; RESP 18–20; TEMP 36.2–37.5; O2SAT 82–100
[2020-02-06] MEDS: fentaNYL-bupivacaine (epidural) 100 ML BAG EPIDURAL ×4 (00:40→16:24)
[2020-02-06] MEDS: Lactated Ringers 1,000 ML 200 ML IV ×2 (02:53→15:51)
[2020-02-06] MEDS: Lactated Ringers 500 ML 999 ML IV ×2 (03:03→15:14)
[2020-02-06] MEDS: Lactated Ringers 1,000 ML 190 ML IV (10:04)
[2020-02-06] MEDS: 0.9% Saline Lock 10 ML Syringe IV ×2 (11:04→22:09)
[2020-02-06] MEDS: Sodium Citrate/Citric Acid 30 ML UDC PO (18:06)
--- NOTE | 2020-02-06 18:08 | PCM.PN.BLA ---
Progress Note Patient has been ruptured for over 24 hours and on Pitocin for over 20 hours with adequate contractions and arrest of dilation at 8 to 9 cm. She was originally 8 cm at 130 this afternoon and then was 9 at 3:00 and upon reevaluation at 6:00 the cervix has gone back down to 8 cm with significant caput present with severe patient discomfort and therefore the decision to proceed with primary low transverse due to arrest of dilation almost 5 hours was made. Patient agrees to proceed. STROKE Vital Signs/Narrative: Vital Signs Temp Pulse BP Pulse Ox 02/06/20 17:38 91 100 02/06/20 17:35 88 143/78 H 02/06/20 16:35 97.8 F 80 137/82 H 02/06/20 15:37 97.8 F 97 143/69 H 02/06/20 15:18 111 H 98 02/06/20 15:16 87 100 02/06/20 15:13 97.9 F 86 139/69 H 02/06/20 14:35 83 132/79 H
--- NOTE | 2020-02-06 18:12 | OP.PCM_ITS ---
Problem List (1) SROM (spontaneous rupture of membranes) Status: Acute (2) 35 weeks gestation of Status: Acute Comment: covid testing ordered 01/11/20c (scheduled for 01/31/20 9:55) (3) Anemia affecting Status: Acute Comment: hemaglobin 10.5 recheck cbc in 4 weeks (4) Anxiety Status: Acute Comment: celexa ordered 10/17, counseling encouraged (5) Influenza vaccine administered Status: Acute Comment: 11/29/2019sc (6) Iron deficiency anemia during Status: Acute Comment: iron supplement, repeta cbc 1 month (7) Obesity affecting Status: Acute Qualifiers: Comment: nl 1 tm glucola, discussed healthy weight gain. plan growth us q 4 weeks and weekly nsts after 32 weeks. NL growth 01/17 (8) Status: Acute Qualifiers: Comment: NIPT- low risk male. declined carrier screening. AFP- neg. 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 After several hours patient made minimal cervical change and therefore Pitocin was started. Patient made slow latent phase of labor progress and then after 25 hours of rupture, and 4 and half hours of arrest of dilation at 8 cm with adequate contractions the decision was made to proceed with a primary low transverse due to suspected CPD. The epidural was dosed and found to be adequate and Brown catheter was placed during the labor process and draining. The patient was placed in the dorsal supine position with leftward tilt. Patient was prepped and draped in the normal sterile fashion. Pfannenstiel skin incision was made with the scalpel and carried through to the underlying layer of fascia with the scalpel. Fascia was nicked in the midline and the incision extended laterally. The rectus bellies were dissected off superiorly and inferiorly with out complication both sharply and bluntly. The peritoneum was entered digitally. The incision was stretched and a low transverse uterine incision was made with the scalpel. The 's head was delivered atraumatically followed by the anterior and posterior shoulders without complication the rest of the infant delivered. The cord was clamped and cut and the infant was handed off to awaiting nurse. The placenta was delivered spontaneously immediately following and was noted to be intact and have a three-vessel cord. The uterus was exteriorized cleared of all clots and debris, and the incision was closed in a double layer closure using #1 Monocryl. The ovaries and fallopian tubes were noted to be within normal limits. The uterus was returned to the maternal abdomen and gutters were cleared of all clots and debris. The peritoneum was closed with 3-0 Monocryl in a running fashion. Gloves were changed prior to fascial closure. Fascia was closed with 0 PDS in a running fashion. Subcutaneous tissue was copiously irrigated and the skin was closed with 3-0 Monocryl in a subcuticular fashion. Mepilex dressing was applied without complication. Patient was taken to recovery in stable condition. It was discussed with the patient that based on the clinical information obtained during this encounter, combined with her history, at this time I would recommend cesareans for future deliveries if further pregnancies are desired. Amniotic Membrane Rupture Type: Spontaneous Amniotic Fluid Description: Moderate meconium Placenta Disposition: [facility] Esitmated Blood Loss (ml): 700 Gender: Male Antibiotic Given: Ancef 3 grams IV x1, Zithromax 500 mg/5 mL X1 Pt instructed on risks of surgery: Bleeding, Anesthesia Risks, Infection, Need for Future C-Sections, Injury to surrounding structure(s) including bowel and bladder Complications: None - Admit VTE Documentation VTE Present on Admission: No VTE Mechan Device Prophylaxis: SCD's Multi Select Codes - Urinary/Genital Urinary/Genital CPT Codes: 13514 delivery+PP Care([facility])
[2020-02-06] MEDS: Oxytocin 30 units/NS 500 ml 30 UNITS/500 ML IV.SOLN 167 UNITS IV (19:35)
[2020-02-06] MEDS: Lactated Ringers 1,000 ML 100 ML IV ×2 (20:00→22:23)
[2020-02-06] MEDS: oxyCODONE 5 MG Tablet PO (20:24)
[2020-02-06] MEDS: Acetaminophen 500 MG Tablet 1000 MG PO (20:40)
[2020-02-06] MEDS: HYDROmorphone 1 MG/ML Syringe IV (22:09)
[2020-02-07] VITALS (7 sets, daily range): BP systolic 112–136; BP diastolic 57–77; PULSE 81–114; RESP 16–18; TEMP 36.1–36.7; O2SAT 95–100
[2020-02-07] MEDS: Ketorolac 30 MG/ML Syringe IV ×4 (01:32→18:55)
[2020-02-07] MEDS: 0.9% Saline Lock 10 ML Syringe IV ×4 (01:33→18:55)
[2020-02-07] MEDS: Acetaminophen 500 MG Tablet 1000 MG PO ×3 (03:13→15:31)
[2020-02-07] MEDS: oxyCODONE 5 MG Tablet PO ×3 (03:55→18:27)
[2020-02-07 04:03] LABS: Hematocrit 29.1 % (37-47); Hemoglobin 9.2 g/dL (12.0-15.0); Mean Corp Hgb Conc 31.6 g/dL (32-36); Mean Corpuscular Hgb 27.2 pg (27.0-32.0); Mean Corpuscular Volume 86.1 fL (81-99); Mean Platelet Vol. 9.9 fl (6.2-12.0); Platelet Count 302 K/mm3 (150-450); RBC Distribution Width CV 16.9 % (11.6-14.6); RBC Distribution Width SD 52.9 fl (35.1-43.9); Red Blood Count 3.38 M/mm3 (4.2-5.4); White Blood Count 14.1 K/mm3 (4.4-11.0)
[2020-02-07] MEDS: Enoxaparin 40 MG/0.4 ML Syringe SC ×2 (06:55→18:53)
[2020-02-07] MEDS: Senna/Docusate Sodium 1 Tablet PO (06:56)
--- NOTE | 2020-02-07 07:58 | PCM.PN.OB ---
Patient Problems: Active and Suspected Problems (Last Reviewed 01/31/20 @ 13:17 by Sintia Knight) SROM (spontaneous rupture of membranes) (Acute) Cephalopelvic disproportion (Acute) 35 weeks gestation of (Acute) covid testing ordered 01/11/20c (scheduled for 01/31/20 9:55) Influenza vaccine administered (Acute) 11/29/2019sc Iron deficiency anemia during (Acute) iron supplement, repeta cbc 1 month Anemia affecting (Acute) hemaglobin 10.5 recheck cbc in 4 weeks Anxiety (Acute) celexa ordered 10/17, counseling encouraged Obesity affecting (Acute) nl 1 tm glucola, discussed healthy weight gain. plan growth us q 4 weeks and weekly nsts after 32 weeks. NL growth 01/17 (Acute) NIPT- low risk male. declined carrier screening. AFP- neg. nl anatomy us Supervision of high risk , antepartum (Acute) PRR RONALDO 02/11/20 boy Yair Jacobsen Subjective: Patient doing well without complaints. Tolerating PO. UP in chair, ramirez cath just out. Breast feeding well. Denies chest pain, shortness of breath, calf pain/swelling, fevers, chills, lightheadedness. - Physical Exam Vitals/I&O's: Vital Signs Temp Pulse Resp BP Pulse Ox 98.1 F 114 H 18 112/63 96 02/07/20 03:00 02/07/20 03:00 02/07/20 03:00 02/07/20 03:00 02/07/20 03:00 Oxygen Delivery Method Room Air Weight: 312 lb Body Mass Index (BMI) 55.3 Intake and Output for Last 24 Hours 02/05/20 02/06/20 02/07/20 23:59 23:59 23:59 Intake Total 500 / 500 51794.08 / 30598.08 1328.33 / 1328.33 Output Total 2650 / 2650 300 / 300 Balance 500 / 500 8248.08 / 8248.08 1028.33 / 1028.33 General: Alert, Oriented x3, Cooperative Abdomen: Soft, Non-Distended, - - Dressing dry and intact. FF below U Microbiology Past 72 Hours 02/05/20 18:05 Mucosa - Nose SARS-CoV-2 Antigen (Rapid) - Final Laboratory Results 02/07/20 04:00: WBC 14.1 H, RBC 3.38 L, Hgb 9.2 L, Hct 29.1 L, MCV 86.1, MCH 27.2, MCHC 31.6 L, RDW Std Deviation 52.9 H, RDW Coeff of Khadar 16.9 H, Plt Count 302, MPV 9.9 Current Medications Acetaminophen (Acetaminophen 500 Mg Tablet) 1,000 mg PO Q6H [facility] Last Admin: 02/07/20 03:13 Dose: 1,000 mg Documented by: Bisacodyl (Bisacodyl 10 Mg Suppository) 10 mg RECTAL UD PRN PRN Reason: If no BM Enoxaparin Sodium (Enoxaparin 40 Mg/0.4 Ml Syringe) 40 mg SC BID@0700,1900 [facility] Last Admin: 02/07/20 06:55 Dose: 40 mg Documented by: Hydrocortisone (Hydrocortisone 2.5% Crm) 1 applic TOPICAL TID PRN PRN; Protocol PRN Reason: Discomfort Hydromorphone HCl (Hydromorphone 1 Mg/Ml Syringe) 0.5 - 1.5 mg IV Q3H PRN PRN PRN Reason: Pain Score 4-10 Stop: 02/07/20 19:41 Last Admin: 02/06/20 22:09 Dose: 1 mg Documented by: Ketorolac Tromethamine (Ketorolac 30 Mg/Ml Syringe) 30 mg IV Q6H [facility] Stop: 02/07/20 19:01 Last Admin: 02/07/20 06:56 Dose: 30 mg Documented by: Methylergonovine Maleate (Methylergonovine 0.2 Mg/Ml Ampul) 0.2 mg IM X1 PRN PRN Reason: Uterine Atony Naproxen (Naproxen 250 Mg Tablet) 500 mg PO Q8H [facility] Ondansetron HCl (Ondansetron 4 Mg/2 Ml Vial) 4 mg IV Q4H PRN PRN PRN Reason: Nausea Oxycodone HCl (Oxycodone 5 Mg Tablet) 5 - 10 mg PO Q4H PRN PRN PRN Reason: Pain Score 4-10 Last Admin: 02/07/20 03:55 Dose: 10 mg Documented by: Prochlorperazine Edisylate (Prochlorperazine 10 Mg/2 Ml Vial) 10 mg IV Q6H PRN PRN PRN Reason: NAUSEA Senna/Docusate Sodium (Senna/Docusate Sodium 1 Tablet) 1 - 2 tablet PO DAILY JAMAL Last Admin: 02/07/20 06:56 Dose: 2 tablet Documented by: Simethicone (Simethicone 80 Mg Tablet) 80 mg PO PCHS PRN PRN Reason: Indigestion/stomach pain Sodium Chloride (0.9% Saline Lock 10 Ml Syringe) 5 - 15 ml IV UD PRN PRN Reason: SALINE FLUSH Last Admin: 02/07/20 06:56 Dose: 10 ml Documented by: Medical Necessity - Tobacco Use Smoking Status: Never smoker Assessment/Plan All Active Problems (Last Reviewed 01/31/20 @ 13:17 by Sintia Knight) SROM (spontaneous rupture of membranes) (Acute) Cephalopelvic disproportion (Acute) 35 weeks gestation of (Acute) Influenza vaccine administered (Acute) Iron deficiency anemia during (Acute) Anemia affecting (Acute) Anxiety (Acute) Obesity affecting (Acute) (Acute) Supervision of high risk , antepartum (Acute) Elevated blood pressure affecting in third trimester, antepartum (Resolved) s/p LTCS PPD # 1 1. routine post care 2. breast feeding- support given 3. rh positive 4. rubella immune
--- NOTE | 2020-02-07 15:16 | CASEMGMT ---
Social Work Assessment Date of Referral: 02/07/2020 Time of Referral: 05:31 Referred By: RN Date of Intervention: 02/07/2020 Time of Intervention: 1500 Reason for Referral: Pt has history of anxiety. Pt's reports significant other Delmar has low spectrum autism disorder and has been very anxious since delivery. History obtained from: Chart, PT Household composition: Pt states that she recently moved from [place] into her Mom and Dad's house in [facility]. Pt states she and FOB will be living at pt's parents house. Patient's parent status: Pt states her mom and dad are good support and willing to help. SW spoke with RN who states pt's mom is in medical field and able to assist. Medical History: Pt states history of anxiety and depression. Pt confirms that she takes Celexa. Pt states that she feels her symptoms are well managed on Celexa. Pt states in high school she was active in counseling. Pt denied currently being in counseling. Pt denied any history of suicidal thoughts/plans/ideations. Pt denied any current suicidal thoughts/plans/ideations. Educational Status: Pt states no concerns with comprehension. Pt states she is able to read and write. Financial Status: Pt states before she was she was working. Pt states that her significant other Delmar works and will be continuing to work. Pt states they decided to move in with her parents as Delmar got a new job and she didn't want the stress of having to pay rent. Pt states it was one less thing to stress about. Pt states no financial concerns at this time. Supplies: Pt states that she has the supplies that she needs. Pt specifically states she has a carseat, crib, bassinet. Childcare/Cargivers: Pt states that her parents and Delmar' parents are available and able to assist. Transportation: Pt states Delmar will provide transportation at discharge. Programs/Agencies Involved: Pt states that she applied for WIC. SW spoke with pt regarding Help Me Grow. Pt states she is not interested in Help Me Grow Referral at this time. SW did provide pt with Help Me Grow information in the event pt is interested at a later time. Children Services/Legal Issues: Pt denied. Behavioral Health Issues: Pt denied. SW spoke with RN regarding pt's significant other. RN states pt's significant other Delmar participates when he is able to, has good coping skills when he gets overwhelmed. SW unable to speak with Delmar during assessment as Delmar was sleeping, didn't wake when this worker was in the room. Family/Social Stressors: Pt denied. Support Systems: Pt again identifies her parents and Delmar' parents as being supportive. Depression/Shaken Baby/Safe Sleeping: Pt states RN provided education regarding depression. Shaken Baby, Safe Sleeping. SW provided pt with depression, Shaken Baby, Safe sleeping resources. Pt (Mom). 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 Delmar Caldwell Assessment: SW met with pt to complete SW assessment. SW introduced self and role at [facility]. Pt is alert and orientated x4. Pt appropriate during conversation with this worker. Pt able to answer questions appropriately and engage in conversation. Pt states she has infant supplies and good support system to assist. Pt does have history of anxiety and depression. Pt states that she feels symptoms are well managed at this time. Pt denied any current suicidal thoughts/plans/ideations. SW spoke with pt regarding Delmar' autism and anxiety. Pt states Delmar is low spectrum autism and is high functioning. Pt states Delmar has never been in counseling before. Pt denied any concerns with Delmar at this time. SW did provide pt with [facility] resources including counseling resources. Pt states no issues or concerns at this time. Plan: Pt to discharge home when medically cleared to pt's parents home. Pt's significant other Delmar has been involved in pt's care and pt has been interacting with baby appropriately. SW provided pt with resources. RN states no additional concerns at this time. SW spoke with RN, updated on conversation. Lillie Juan COPY COORDINATOR, PRESIDENT & FOUNDER
[2020-02-08] MEDS: Naproxen 250 MG Tablet 500 MG PO ×2 (01:38→09:54)
[2020-02-08 01:40] VITALS: BP 159/85; PULSE 108; RESP 18; TEMP 37.1; O2SAT 99
--- NOTE | 2020-02-08 01:45 | NURSING ---
Patient painful and tearful at this time. She states that her pain is burning around the incision site. Plan to assess pain in 30 minutes following naproxen and determine need for stronger pain medication. Patient agreeable to plan.
[2020-02-08] MEDS: oxyCODONE 5 MG Tablet PO (02:04)
[2020-02-08] MEDS: Enoxaparin 40 MG/0.4 ML Syringe SC (06:13)
--- NOTE | 2020-02-08 07:55 | PCM.PN.OB ---
Patient Problems: Active and Suspected Problems (Last Reviewed 01/31/20 @ 13:17 by Sintia Knight) SROM (spontaneous rupture of membranes) (Acute) Cephalopelvic disproportion (Acute) 35 weeks gestation of (Acute) covid testing ordered 01/11/20c (scheduled for 01/31/20 9:55) Influenza vaccine administered (Acute) 11/29/2019sc Iron deficiency anemia during (Acute) iron supplement, repeta cbc 1 month Anemia affecting (Acute) hemaglobin 10.5 recheck cbc in 4 weeks Anxiety (Acute) celexa ordered 10/17, counseling encouraged Obesity affecting (Acute) nl 1 tm glucola, discussed healthy weight gain. plan growth us q 4 weeks and weekly nsts after 32 weeks. NL growth 01/17 (Acute) NIPT- low risk male. declined carrier screening. AFP- neg. nl anatomy us Supervision of high risk , antepartum (Acute) PRR RONALDO 02/11/20 boy Yair Jacobsen Subjective: Patient doing well without complaints. Tolerating PO. Ambulating and voiding without difficulty. Bottle feeding well. Denies chest pain, shortness of breath, calf pain/swelling, fevers, chills, lightheadedness. - Physical Exam Vitals/I&O's: Vital Signs Temp Pulse Resp BP Pulse Ox 98.7 F 108 H 18 159/85 H 99 02/08/20 01:40 02/08/20 01:40 02/08/20 01:40 02/08/20 01:40 02/08/20 01:40 Oxygen Delivery Method Room Air Weight: 312 lb Body Mass Index (BMI) 55.3 Intake and Output for Last 24 Hours 02/06/20 02/07/20 02/08/20 23:59 23:59 23:59 Intake Total 13737.08 / 20714.08 1328.33 / 1328.33 Output Total 2650 / 2650 700 / 700 Balance 8248.08 / 8248.08 628.33 / 628.33 General: Alert, Oriented x3 Abdomen: Soft - Dressing dry and intact. Appropriately tender. FF at U Microbiology Past 72 Hours 02/05/20 18:05 Mucosa - Nose SARS-CoV-2 Antigen (Rapid) - Final Current Medications Acetaminophen (Acetaminophen 500 Mg Tablet) 1,000 mg PO Q6H JAMAL Last Admin: 02/07/20 15:31 Dose: 1,000 mg Documented by: Bisacodyl (Bisacodyl 10 Mg Suppository) 10 mg RECTAL UD PRN PRN Reason: If no BM Enoxaparin Sodium (Enoxaparin 40 Mg/0.4 Ml Syringe) 40 mg SC BID@0700,1900 [facility] Last Admin: 02/08/20 06:13 Dose: 40 mg Documented by: Hydrocortisone (Hydrocortisone 2.5% Crm) 1 applic TOPICAL TID PRN PRN; Protocol PRN Reason: Discomfort Methylergonovine Maleate (Methylergonovine 0.2 Mg/Ml Ampul) 0.2 mg IM X1 PRN PRN Reason: Uterine Atony Naproxen (Naproxen 250 Mg Tablet) 500 mg PO Q8H [facility] Last Admin: 02/08/20 01:38 Dose: 500 mg Documented by: Ondansetron HCl (Ondansetron 4 Mg/2 Ml Vial) 4 mg IV Q4H PRN PRN PRN Reason: Nausea Oxycodone HCl (Oxycodone 5 Mg Tablet) 5 - 10 mg PO Q4H PRN PRN PRN Reason: Pain Score 4-10 Last Admin: 02/08/20 02:04 Dose: 10 mg Documented by: Prochlorperazine Edisylate (Prochlorperazine 10 Mg/2 Ml Vial) 10 mg IV Q6H PRN PRN PRN Reason: NAUSEA Senna/Docusate Sodium (Senna/Docusate Sodium 1 Tablet) 1 - 2 tablet PO DAILY [facility] Last Admin: 02/07/20 06:56 Dose: 2 tablet Documented by: Simethicone (Simethicone 80 Mg Tablet) 80 mg PO PCHS PRN PRN Reason: Indigestion/stomach pain Last Admin: 02/07/20 18:27 Dose: 80 mg Documented by: Sodium Chloride (0.9% Saline Lock 10 Ml Syringe) 5 - 15 ml IV UD PRN PRN Reason: SALINE FLUSH Last Admin: 02/07/20 18:55 Dose: 10 ml Documented by: Medical Necessity - Tobacco Use Smoking Status: Never smoker Assessment/Plan All Active Problems (Last Reviewed 01/31/20 @ 13:17 by Sintia Knight) SROM (spontaneous rupture of membranes) (Acute) Cephalopelvic disproportion (Acute) 35 weeks gestation of (Acute) Influenza vaccine administered (Acute) Iron deficiency anemia during (Acute) Anemia affecting (Acute) Anxiety (Acute) Obesity affecting (Acute) (Acute) Supervision of high risk , antepartum (Acute) Elevated blood pressure affecting in third trimester, antepartum (Resolved) s/p LTCS PPD # 2 1. routine post care 2. bottle feeding- support given 3. rh positive 4. rubella immune 5. home today
--- NOTE | 2020-02-08 07:58 | DCINST_ITS ---
Additional Instructions: If you experience any of the following, contact your healthcare provider. * Bleeding that soaks a pad every hour for 2 hours * Fever 100.4 or higher * Unrelieved incision or abdominal pain * Swelling, redness, discharge or bleeding from your incision or episiotomy site * Your incision begins to separate * Problems urinating (including inability to urinate or burning while urinating). * Visual changes * Severe headache * Flu-like symptoms * Pain or redness in one of both of your breasts * Pain, warmth, tenderness or swelling in your legs, especially the calf area * Frequent nausea and vomiting * Symptoms of depression or anxiety If you experience any of the following, call 911 or go to the nearest Emergency Room. * Chest pain * Problems breathing * Seizure activity * Partial or complete paralysis of a body part, slurred speech, weakness or drooping of the face, or a sudden inability to walk or hold your balance Allergies/Adverse Reactions: Allergies No Known Allergies Allergy (Verified 02/05/20 18:21) Medications to take at Discharge docosahexaenoic acid 200 mg capsule mg PO 06/16/19 ondansetron 4 mg disintegrating tablet 4 mg PO Q4H PRN #60 tab 07/26/19 ferrous sulfate 325 mg (65 mg iron) tablet 325 mg PO BID 12/06/19 Citalopram [Celexa] 40 mg PO DAILY 12/09/19 Vitamin Tablet 1 tab PO DAILY 02/05/20 Naproxen [Naprosyn] 500 mg PO BID PRN PRN #60 tab 02/07/20 The following prescriptions were given: Naproxen [Naprosyn] 500 mg PO BID PRN PRN #60 tab PRN Reason: Pain Transmission Status: Received by [facility] Follow-Up: Call to make an appointment with your doctor for an incision check in 1-2 weeks. You will also need a 6 week post- follow up appointment. Test results from this visit will be discussed in further detail at your follow- up appointment, if applicable. Primary Care Physician: Martinez Chappell DO [Primary Care Provider] -
--- NOTE | 2020-02-08 07:58 | PCM.DCCSEC ---
Additional Instructions: If you experience any of the following, contact your healthcare provider. Bleeding that soaks a pad every hour for 2 hours Fever 100.4 or higher Unrelieved incision or abdominal pain Swelling, redness, discharge or bleeding from your incision or episiotomy site Your incision begins to separate Problems urinating (including inability to urinate or burning while urinating). Visual changes Severe headache Flu-like symptoms Pain or redness in one of both of your breasts Pain, warmth, tenderness or swelling in your legs, especially the calf area Frequent nausea and vomiting Symptoms of depression or anxiety If you experience any of the following, call 911 or go to the nearest Emergency Room. Chest pain Problems breathing Seizure activity Partial or complete paralysis of a body part, slurred speech, weakness or drooping of the face, or a sudden inability to walk or hold your balance Allergies/Adverse Reactions: Allergies No Known Allergies Allergy (Verified 02/05/20 18:21) Medications to take at Discharge docosahexaenoic acid 200 mg capsule mg PO 06/16/19 ondansetron 4 mg disintegrating tablet 4 mg PO Q4H PRN #60 tab 07/26/19 ferrous sulfate 325 mg (65 mg iron) tablet 325 mg PO BID 12/06/19 Citalopram [Celexa] 40 mg PO DAILY 12/09/19 Vitamin Tablet 1 tab PO DAILY 02/05/20 Naproxen [Naprosyn] 500 mg PO BID PRN PRN #60 tab 02/07/20 The following prescriptions were given: Naproxen [Naprosyn] 500 mg PO BID PRN PRN #60 tab PRN Reason: Pain Transmission Status: Received by [facility] Follow-Up: Call to make an appointment with your doctor for an incision check in 1-2 weeks. You will also need a 6 week post- follow up appointment. Test results from this visit will be discussed in further detail at your follow-up appointment, if applicable. Primary Care Physician: Martinez Chappell DO [Primary Care Provider] -
[2020-02-08 09:45] VITALS: BP 117/56; PULSE 94; RESP 14; TEMP 36.4
[2020-02-08] MEDS: Acetaminophen 500 MG Tablet 1000 MG PO (09:53)
[2020-02-08] MEDS: Senna/Docusate Sodium 1 Tablet PO (09:54)
== END 2020-02-08 12:45 | disposition home or self-care (01) | DRG 540 ==
PROVIDERS: Admitting Provider Obstetrics & Gynecology; PCP Family Medicine; Visit Provider Obstetrics & Gynecology
DX: O62.1 Secondary uterine inertia (principal); O42.92 Full-term premature rupture of membranes, unspecified as to length of time between rupture and onset of labor; O99.02 Anemia complicating childbirth; D50.9 Iron deficiency anemia, unspecified; O99.344 Other mental disorders complicating childbirth; F41.9 Anxiety disorder, unspecified; O99.214 Obesity complicating childbirth; E66.01 Morbid (severe) obesity due to excess calories; O77.0 Labor and delivery complicated by meconium in amniotic fluid; O33.9 Maternal care for disproportion, unspecified; Z3A.39 39 weeks gestation of pregnancy; Z37.0 Single live birth
CPT/HCPCS: 59025; 59050; 85025; 85027; 86850; 86900; 86901; 87426; 99218; J7120; A4216; G0378; J2405

== ENCOUNTER 2020-07-02 17:26 | Observation (INO) | payer OTHER, MEDICAID, SELFPAY ==
[2020-03-20 10:59] VITALS: BMI 51.0
[2020-07-02 17:27] VITALS: BP 148/75; PULSE 82; RESP 17; TEMP 36; O2SAT 96; BMI 50.3
--- NOTE | 2020-07-02 18:04 | CT_ITS ---
STUDY: CT ABDOMEN AND PELVIS WITH CONTRAST REASON FOR EXAM: Female, 30 years old. RLQ PAIN,NAUSEA AND DIARRHEA,PREG TEST NEG RADIATION DOSAGE (If Supplied By Facility): CTDIvol = ( 18.74 ) mGy, DLP = ( 1308.41 ) mGycm TECHNIQUE: Transaxial images were obtained from the dome of the diaphragm to the symphysis pubis without oral contrast. IV 100mL Isovue-370 was administered. Sagittal and coronal images were reconstructed. Individualized dose optimization techniques were used for this CT. COMPARISON: None. FINDINGS: Minimal dependent atelectatic changes seen in the left lower lobe. Normal liver. No intrahepatic biliary duct dilatation or liver mass. Normal gallbladder and extrahepatic biliary system. Normal spleen. Normal pancreas. Normal bilateral adrenal glands. Normal right kidney. Normal left kidney. No hydronephrosis or renal masses. No large stones. Normal visualized stomach. Normal small intestine. Normal colon. No bowel dilatation or obstruction. No free air or free fluid. The appendix is visualized and appears normal. No demonstrated dilatation or fluid distention of the appendix and no periappendiceal inflammatory stranding is present. Normal abdominal aorta. Normal inferior vena cava. Normal retroperitoneum. Normal urinary bladder. Unremarkable uterus and adnexa. Normal abdominal wall. Normal osseous structures. Minimal edema seen in the body wall. CT/Abdomen/Pelvis W IV Cont ONLY IMPRESSION: 1. No demonstrated acute or significant process of the abdomen and pelvis. Electronically Signed: Zenon Esparza MD at 20:17 EDT , Service support ,
[2020-07-02] MEDS: Morphine 4 MG/ML Syringe IV ×2 (18:07→21:04)
[2020-07-02] MEDS: Ondansetron 4 MG/2 ML Vial IV (18:07)
[2020-07-02 18:23] LABS: Red Blood Cells-Urine 0 SEEN /hpf (0-5); White Blood Cells 0 SEEN /hpf (0-5)
[2020-07-02 18:23] LABS: Absolute Lymphocyte Count 2.56 X10^3/uL (0.83-4.51); Absolute Neutrophil Count 8.4 X10^3/uL (2.0-7.7); Basophil# 0.04 X10^3/uL; Basophil% 0.3 % (0-1); Eosinophil# 0.07 X10^3/uL; Eosinophils% 0.6 % (0-5); Hematocrit 36.5 % (37-47); Hemoglobin 11.2 g/dL (12.0-15.0); Lymphocyte # 2.56 X10^3/ul (4.0); Lymphocyte % 21.9 % (19-41); Mean Corp Hgb Conc 30.7 g/dL (32-36); Mean Corpuscular Hgb 25.8 pg (27.0-32.0); Mean Corpuscular Volume 84.1 fL (81-99); Mean Platelet Vol. 9.5 fl (6.2-12.0); Monocyte# 0.55 X10^3/uL; Monocyte% 4.7 % (0-10); NRBC Flagged by Analyzer 0 % (0-5); Neutrophil # 8.43 X10^3/uL (2.7-7.7); Neutrophil % 72.2 % (47-70); Platelet Count 423 K/mm3 (150-450); RBC Distribution Width SD 46.1 fl (35.1-43.9); Red Blood Count 4.34 M/mm3 (4.2-5.4); White Blood Count 11.7 K/mm3 (4.4-11.0)
[2020-07-02 18:37] LABS: Color, Urine Yellow (Yellow); Glucose, Dipstick Normal (Normal); Ketone-Dipstick Negative (Negative); Leukocyte Esterase-Dipstick 25 /ul (Negative); Nitrite-Dipstick Negative (Negative); Occult Blood-Urine Negative /ul (Negative); Protein-Dipstick 15 mg/dl (Negative); Urine Bilirubin Dipstick Negative (Negative); Urine Clarity Clear (Clear); Urine Urobilinogen Normal (Normal)
[2020-07-02 18:41] LABS: Anion Gap 6 (5-15); BUN 8 mg/dL (7-18); BUN/Creat Ratio 12.3 RATIO (10-20); Calcium,Total 8.6 mg/dL (8.5-10.1); Chloride 107 mmol/L (98-107); Creatinine, Serum 0.65 mg/dL (0.55-1.02); EST Glomerular Filtration Rate 115 mL/min (>60); Est Glom Filt Rate - Afr Amer 139 mL/min (>60); Estimated Creatinine Clearance 106.59 ml/min; Glucose 82 mg/dL (74-106); Potassium 3.9 mmol/L (3.5-5.1); Sodium Level 137 mmol/L (136-145)
[2020-07-02 18:55] LABS: Bacteria 1+ /hpf (None Seen); Mucous, Urine 2+ /hpf (<or=2+); Squamous Epithelial Cells - UA 5-10 SEEN /hpf (5-10)
--- NOTE | 2020-07-02 18:59 | ED.VIS.GEN ---
History of Present Illness Chief Complaint: Abd Pain Informant: Patient Narrative: 30-year-old female presenting with right lower quadrant pain. She states that initially started in the umbilicus and right lower 100. Now it is only in the right lower quadrant. She is not had a fever but complains of nausea without vomiting. She states she has history of diverticulitis but is never had appendicitis. Patient states her symptoms started last evening with diarrhea which is improved. - Past Medical History (1) Anxiety Status: Chronic Comment: celexa ordered 10/17, counseling encouraged Past Medical History - Allergies and Home Meds Allergies/Adverse Reactions: Allergies No Known Allergies Allergy (Verified 07/02/20 17:27) Prior records reviewed: Yes Past Medical History: - - Anxiety Surgical History: tonsillectomy, - - Lives: Spouse/ Significant Other Smoking Status: Never smoker Alcohol: None Drugs: None Review of Systems General: Denies: Chills, Fever, Sweats Eyes: Denies: Visual changes - bilaterally, Diplopia ENT: Denies: Rhinorrhea, Sore throat Cardiovascular: Denies: Chest pain, Palpitations Respiratory: Denies: Dyspnea, Cough, Dyspnea on exertion Gastrointestinal: Reports: Abdominal pain, Nausea, Diarrhea. Denies: Vomiting, Constipation, Melena, Hematochezia Genitourinary: Denies: Dysuria, Hematuria Musculoskeletal: Denies: Myalgias, Arthralgias Skin: Denies: Rash, Abscess Neurological: Denies: Headache, Weakness, Parasthesia Psych: Denies: Depression, Anxiety Endocrine: Denies: Polyuria, Polydipsia Physical Exam Vital Signs/Narrative: Vital Signs Temp Pulse Resp BP Pulse Ox 07/02/20 17:27 96.8 F L 82 17 148/75 H 96 Inital Vital Signs reviewed: Yes General: Well nourished, No Acute Distress Head: Normocephalic, Atraumatic Eyes: Perrl, EOMI ENT: Moist mucous membranes, No rhinorrhea Cardiovascular: Regular rate, Regular rhythm Respiratory: No distress, CTA bilaterally Abdomen: Soft, Nondistended, Tender - To palpation right lower quadrant. Positive Rovsing's. Pain with internal rotation of the right hip Back: Nontender. Negative for: CVA tenderness Extremities: Nontender, No edema Skin: Normal color, No rash Neurological: Alert, Oriented x3 Psychological: Normal affect, Normal Mood Diagnostic/Tx/Re-eval Clinical Impression(s) from Imaging Studies Abdomen/Pelvis CT 07/02/20 18:04 IMPRESSION: 1. No demonstrated acute or significant process of the abdomen and pelvis. Electronically Signed: Zenon Esparza MD at 20:17 EDT , Service support , Laboratory Data 07/02/20 07/02/20 07/02/20 17:34 18:10 18:10 WBC 11.7 H RBC 4.34 Hgb 11.2 L Hct 36.5 L MCV 84.1 MCH 25.8 L MCHC 30.7 L RDW Std Deviation 46.1 H RDW Coeff of Khadar 15.0 H Plt Count 423 MPV 9.5 Immature Gran % (Auto) 0.300 Neut % (Auto) 72.2 H Lymph % (Auto) 21.9 [place] % (Auto) 4.7 Eos % (Auto) 0.6 Baso % (Auto) 0.3 Absolute Neuts (auto) 8.4 H Absolute Lymphs (auto) 2.56 Nucleated RBC % 0 Sodium 137 Potassium 3.9 Chloride 107 Carbon Dioxide 24.0 Anion Gap 6 BUN 8 Creatinine 0.65 Estim Creat Clear Calc 106.59 Est GFR (MDRD) Af Amer 139 Est GFR (MDRD) Non-Af 115 BUN/Creatinine Ratio 12.3 Glucose 82 Calcium 8.6 Serum , Qual Urine Color Yellow Urine Clarity Clear Urine pH 6.0 Ur Specific [place] 1.020 Urine Protein 15 H Urine Glucose (UA) Normal Urine Ketones Negative Urine Occult Blood Negative Urine Nitrite Negative Urine Bilirubin Negative Urine Urobilinogen Normal Ur Leukocyte Esterase 25 H Urine RBC 0 SEEN Urine WBC 0 SEEN Ur Squamous Epith Cells 5-10 SEEN Urine Bacteria 1+ Urine Mucus 2+ 07/02/20 18:10 WBC RBC Hgb Hct MCV MCH MCHC RDW Std Deviation RDW Coeff of Khadar Plt Count MPV Immature Gran % (Auto) Neut % (Auto) Lymph % (Auto) [place] % (Auto) Eos % (Auto) Baso % (Auto) Absolute Neuts (auto) Absolute Lymphs (auto) Nucleated RBC % Sodium Potassium Chloride Carbon Dioxide Anion Gap BUN Creatinine Estim Creat Clear Calc Est GFR (MDRD) Af Amer Est GFR (MDRD) Non-Af BUN/Creatinine Ratio Glucose Calcium Serum , Qual NEGATIVE Urine Color Urine Clarity Urine pH Ur Specific [place] Urine Protein Urine Glucose (UA) Urine Ketones Urine Occult Blood Urine Nitrite Urine Bilirubin Urine Urobilinogen Ur Leukocyte Esterase Urine RBC Urine WBC Ur Squamous Epith Cells Urine Bacteria Urine Mucus - Medical Decision Making 30-year-old female seen for right lower quadrant abdominal pain. Patient denies fever or chills. She does not have significant nausea. Patient had blood work which shows an 11.7 white blood cell count and a left shift. Renal function electrolytes are normal. Serum drug negative. Urinalysis is negative. Patient required 2 doses of morphine and Zofran in the ED. patient had CT of the abdomen pelvis with IV contrast which was read as negative for acute appendicitis or other intra-abdominal pathology. On reevaluation patient continued to have pain. At this point I called Dr. Hsu who came and evaluated the patient. He thinks that there is a little periappendiceal stranding I believe the patient has acute appendicitis. He did start Zosyn in the ED. He admitted the patient to his service. He plans to do appendectomy at 5:30 AM. Patient stable on admission. Impression: 1. Acute appendicitis ED Disposition - Plan for ED Patient: Disposition: Home or Assisted Living
[2020-07-02 19:11] LABS: Internal QC Validated? YES +Cl - CLEAR BKGD; Pregnancy, Serum, hCG Quali. NEGATIVE Negative
[2020-07-02 19:36] VITALS: RESP 14
--- NOTE | 2020-07-02 21:19 | PCM.HP.STD ---
Problem List (1) Acute appendicitis Status: Acute Qualifiers: Acute appendicitis type: unspecified acute appendicitis type Qualified Code(s): K35.80 - Unspecified acute appendicitis History of Present Illness Date of Admission: 07/02/20 The patient is a 30 year old F here with abdominal pain since 11 PM last night. The patient reports that she was awoken with pain at 2 AM has been up ever since. She has nausea but no vomiting. She says the pain is in her umbilical region as well as the right lower quadrant. It does not radiate. She has no fevers or chills. Past Medical History Past Medical History (Chronic Problems): Chronic Problems (Last Reviewed 03/20/20 @ 10:59 by Iman Howard) Anxiety (Chronic) celexa ordered 10/17, counseling encouraged Allergies No Known Allergies Allergy (Verified 07/02/20 17:27) Home Medications: Ambulatory Orders Medication Instructions Recorded desogestrel 0.15 mg-ethinyl 1 tab PO QDAY #28 tab 02/20/20 estradiol 0.03 mg tablet citalopram 20 mg tablet 40 mg PO DAILY #60 tab 03/20/20 Surgical History: Surgical History (Last Reviewed 03/20/20 @ 10:59 by Iman Howard) delivery delivered O82 x1 2020 History of tonsillectomy and adenoidectomy Z98.890 Surgical History: tonsillectomy, - - Smoking Status: Never smoker Alcohol: None Drugs: None Review of Systems Constitutional: Reports: Anorexia. Denies: Chills HEENT: Denies: Difficulty Swallowing Cardiovascular: Denies: Chest Pain Respiratory: Denies: Cough, Shortness of Breath Gastrointestinal: Reports: Abdominal Pain, Diarrhea, Nausea. Denies: Hematemesis, Hematochezia, Vomiting Skin: Denies: Jaundice Hematologic/ Lymphatic: Denies: Anemia VTE Information - Inpt Only VTE Present on Admission: No VTE Mechan Device Prophylaxis: SCD's - Physical Exam Vitals/I&O's: Vital Signs Temp Pulse Resp BP Pulse Ox 96.8 F L 82 14 148/75 H 96 07/02/20 17:27 07/02/20 17:27 07/02/20 19:36 07/02/20 17:27 07/02/20 17:27 Oxygen Delivery Method Room Air Weight: 284 lb 2.813 oz Body Mass Index (BMI) 50.3 General: Alert, Oriented x3 Neck: No JVD Lungs: Normal air movement Cardiovascular: Regular rate, Regular Rhythm Abdomen: Soft, Tender - Tender in the right lower quadrant Extremities: No clubbing Skin: No rashes Musculoskeletal: No Muscle Wasting Lymphatic: No Cervical, Supraclavicular, or Inguinal Adenopathy Psych/Mental Status: Normal Affect, Appropriate Laboratory Results 07/02/20 17:34: Urine Color Yellow, Urine Clarity Clear, Urine pH 6.0, Ur Specific [place] 1.020, Urine Protein 15 H, Urine Glucose (UA) Normal, Urine Ketones Negative, Urine Occult Blood Negative, Urine Nitrite Negative, Urine Bilirubin Negative, Urine Urobilinogen Normal, Ur Leukocyte Esterase 25 H, Urine RBC 0 SEEN, Urine WBC 0 SEEN, Ur Squamous Epith Cells 5-10 SEEN, Urine Bacteria 1+, Urine Mucus 2+ 07/02/20 18:10: WBC 11.7 H, RBC 4.34, Hgb 11.2 L, Hct 36.5 L, MCV 84.1, MCH 25.8 L, MCHC 30.7 L, RDW Std Deviation 46.1 H, RDW Coeff of Khadar 15.0 H, Plt Count 423, MPV 9.5, Immature Gran % (Auto) 0.300, Neut % (Auto) 72.2 H, Lymph % (Auto) 21.9, [place] % (Auto) 4.7, Eos % (Auto) 0.6, Baso % (Auto) 0.3, Absolute Neuts (auto) 8.4 H, Absolute Lymphs (auto) 2.56, Nucleated RBC % 0 07/02/20 18:10: Sodium 137, Potassium 3.9, Chloride 107, Carbon Dioxide 24.0, Anion Gap 6, BUN 8, Creatinine 0.65, Estim Creat Clear Calc 106.59, Est GFR (MDRD) Af Amer 139, Est GFR (MDRD) Non-Af 115, BUN/Creatinine Ratio 12.3, Glucose 82, Calcium 8.6 07/02/20 18:10: Serum , Qual NEGATIVE Clinical Impression(s) from Imaging Studies Abdomen/Pelvis CT 07/02/20 18:04 IMPRESSION: 1. No demonstrated acute or significant process of the abdomen and pelvis. Electronically Signed: Zenon Esparza MD at 20:17 EDT , Service support , Current Medications Piperacillin Sod/Tazobactam (Sod 3.375 gm/ Sodium Chloride) 50 mls @ 12.5 mls/hr IV Q8 JAMAL Iopamidol (Contrast Allergy Safety Check) 0 ml IV X1 JAMAL Assessment/Plan All Active Problems (Last Reviewed 03/20/20 @ 10:59 by Iman Howard) Acute appendicitis (Acute) SROM (spontaneous rupture of membranes) (Acute) Cephalopelvic disproportion (Acute) 35 weeks gestation of (Acute) Influenza vaccine administered (Acute) Iron deficiency anemia during (Acute) Anemia affecting (Acute) Obesity affecting (Acute) (Acute) Supervision of high risk , antepartum (Acute) Elevated blood pressure affecting in third trimester, antepartum (Resolved) 30-year-old female with possible acute appendicitis 1. The patient has been n.p.o. for over 24 hours with no improvement of symptoms. She reports right lower quadrant pain and nausea. She does have an increased white count and I reviewed the CT scan which showed a fluid-filled appendix with some possible stranding at the tip. It was read as a negative CT scan. The patient reports the pain is not improving at all and she is very uncomfortable. 2. I offered different treatment plans to the patient. I offered her a repeat CT scan with p.o. contrast but she does not believe she will be able to tolerate the p.o. contrast that she almost vomited already today. The patient was also offered exploratory laparoscopy. I discussed laparoscopic appendectomy with the patient and the patient would like to proceed with laparoscopic appendectomy. I explained that I explore the right lower quadrant and remove the appendix, even if not inflamed. I discussed the risks of the procedure including but not limited to bleeding, infection, injury surrounding organs such as the bowel, bladder, ureter. The patient understands all the risks as well to proceed. I will admit the patient to the floor and start her antibiotics and IV fluids and plan to take the patient early tomorrow morning for surgery. Darshan Nathan MD Pager: [facility] [address] [place] [address], [address] [place] [address] Office:
[2020-07-02 21:30] VITALS: BP 141/76; PULSE 66; RESP 16; TEMP 36.7; O2SAT 98
[2020-07-02 22:48] VITALS: BMI 49.7
[2020-07-02 22:57] VITALS: BMI 49.7
[2020-07-02 23:07] VITALS: BMI 49.7
[2020-07-02 23:15] VITALS: BP 105/51; PULSE 74; RESP 16; TEMP 36.7; O2SAT 98
[2020-07-02] MEDS: 0.9% Normal Saline 1,000 ML 100 ML IV (23:40)
[2020-07-03] VITALS (9 sets, daily range): BP systolic 104–141; BP diastolic 57–77; PULSE 62–95; RESP 14–18; TEMP 36.6–37.3; O2SAT 89–99
[2020-07-03] MEDS: Ondansetron 4 MG/2 ML Vial IV (00:32)
[2020-07-03] MEDS: Morphine 2 MG/ML Syringe IV (02:34)
--- NOTE | 2020-07-03 04:00 | EKG12_ITS ---
Test Reason : PRE-OP Blood Pressure : / mmHG Vent. Rate : 072 BPM Atrial Rate : 072 BPM P-R Int : 144 ms QRS Dur : 082 ms QT Int : 410 ms P-R-T Axes : 050 037 028 degrees QTc Int : 448 ms Normal sinus rhythm Normal ECG Confirmed by PHONG REYES, NOAH ([id number]), editor producer JULIANNE PEGUERO ([id number]) on 07/05/2020 11:25:47 AM Referred By: DR LUNA Confirmed By:NOAH DARLING MD
--- NOTE | 2020-07-03 05:30 | APP_PTH ---
PATIENT: SIGIFREDO GOMEZ LOC: MS3 U#:[id number] AGE/SX: 30/F ROOM: DC306 RE07/02/[address]: Dr. Darshan Nathan MD : 1990 BED: 1 DIS: 07/03/2020 SPEC #: [id number] RECD: 07/03/20 07:54 STATUS: BRISA STALLINGS #: [id number] ASHLEY: 07/03/20 05:[address]: Darshan Nathan DEPT: SURGICAL PATHOLOGY RECD BY: Candida Simmons ENTERED: 07/03/20 10:21 SP TYPE: APPENDIX OTHR DR: Dr. Martinez Chappell DO Tissues: A - Appendix, NOS B - Peritoneum, NOS Procedures: Surgery Specimen Level III Surgery Specimen Level IV HEADER OPERATION: Laparoscopic appendectomy PRE-OP DIAGNOSIS: Acute appendicitis TISSUE SUBMITTED: A - Appendix, B - Peritoneal attachment MICROSCOPIC DIAGNOSIS A. Appendix, appendectomy: Acute appendicitis. Acute serositis. B. Peritoneal attachment, biopsy: Fibrous tissue with minimal chronic inflammation. AM:boubacar 07/04/2020 MICROSCOPIC DESCRIPTION Slides are reviewed. GROSS DESCRIPTION A - Received in fixative is one container labeled with the patient's name and designated appendix. The specimen consists of an appendix measuring 6.2 cm in length and up to 0.9 cm in diameter. No gross perforations are identified. Serial sections reveal a patent lumen. No mass lesion is identified. The appendix is serially sectioned and totally submitted in two cassettes. B - Received in fixative is one container labeled with the patient's name and designated peritoneal attachment. The specimen consists of a single irregular fragment of mcleod tissue measuring 0.2 x 0.1 x 0.1 cm. The specimen is totally submitted in one cassette. / AM:boubacar 07/03/20 TC:2 CPT: 17526, 55932
[2020-07-03] MEDS: Bupiv/Epi 0.25% 30 ML Vial (06:07)
[2020-07-03] MEDS: 0.9% Normal Saline 1,000 ML 100 ML IV (07:36)
--- NOTE | 2020-07-03 07:40 | PCM.OPRPT ---
Problem List (1) Acute appendicitis Status: Acute Qualifiers: Acute appendicitis type: unspecified acute appendicitis type Qualified Code(s): K35.80 - Unspecified acute appendicitis Report of Operation Date of Procedure: 07/03/20 Pre-Operative Diagnosis: Acute appendicitis Post-Operative Diagnosis: Acute appendicitis and endometriosis Surgery/Procedure Performed:: Laparoscopic appendectomy Specimen's removed: Appendix. Endometriosis Description of Procedure: The patient was brought back to the operating room and general anesthesia was induced. The abdomen was prepped and draped in usual sterile fashion. An incision was made superior to the umbilicus and Visiport with a 5 mm port was used to access the abdomen. The abdomen was insufflated to 15 mmHg. There was no trauma upon entry. Next the patient was placed in Trendelenburg position and under direct visualization a right lower quadrant 5 mm port was placed as well as a suprapubic 5 mm port. The midline port superior to the umbilicus was upsized to a 10 mm port. The appendix was identified and elevated and appeared only mildly congested if at all. The pelvis was inspected. Both ovaries appeared normal and pictures were taken. The right colon appeared normal as well. There did not appear to be any constipation or thickening of the right colon. The patient did have a small area of endometriosis in the right lower quadrant on the peritoneum of the abdominal wall. Next the appendix was elevated and the mesoappendix was taken down using Enseal. There was good hemostasis. A stapler was used to divide the base of the appendix and it was placed into a bag. Next the endometriosis was grasped and the peritoneum was stripped in this area. There is good hemostasis. The staple line was inspected once more and appeared to be hemostatic with no oozing. The abdomen was inspected once more and there were no other abnormalities. Next the 10 mm port was removed from the abdomen and using a Weston Campuzano needle under laparoscopic visualization the midline incision fascia was closed using an 0 Vicryl suture in a [id number] fashion. The 5 mm ports were removed from the abdomen and the abdomen was allowed to desufflate. The skin incisions were injected with local anesthetic and closed with interrupted 4-0 Monocryl sutures as well as Steri-Strips and bandages. The patient was then awoken and taken to PACU in stable condition. The patient tolerated the procedure well. - Admit VTE Documentation VTE Mechan Device Prophylaxis: SCD's
--- NOTE | 2020-07-03 07:46 | DCINST_ITS ---
Discharge Diet: Light diet - advance as tolerated Discharge Activity: May Not Drive - for 3-5 days or while taking narcotic pain meds. May shower in (days): 1 Lifting Restrictions: 20 lbs for 2 weeks Call your doctor if your incision/area has: Continuous Slow Oozing, Sudden Increased Bleeding, Increased Pain/ Swelling, Increased Redness, Foul Smelling Discharge Call your doctor if you observe: Fever of 101 or Higher Suture Line Care: Avoid Pulling/Pushing, Avoid Pinching/Bending Additional Dressing/Incision Instructions:: Keep dressing clean and dry. Change or remove dressing in 2 days. Leave steri strips for 1 week. May protect with a gauze bandaid. Instructions: ED Abdominal Pain Unkn Cause Fem Medications to take at Discharge citalopram 20 mg tablet 40 mg PO DAILY #60 tab 03/20/20 Desogestrel-Ethinyl Estradiol [Apri 28 Day Tablet] 1 tablet PO QDAY 07/02/20 Acetaminophen [Tylenol Tablet] 650 mg PO Q4H PRN PRN tablet 07/03/20 Oxycodone [Oxyir] 5 - 10 mg PO Q4H PRN PRN 5 Days #30 tablet 07/03/20 Allergies/Adverse Reactions: Allergies No Known Allergies Allergy (Verified 07/02/20 17:27) The following prescriptions were given: Oxycodone [Oxyir] 5 - 10 mg PO Q4H PRN PRN 5 Days #30 tablet PRN Reason: Pain Score 4-10 Transmission Status: Sent to [facility] Primary Care Physician: Martinez Chappell DO [Primary Care Provider] - Test Results: Test results from this visit will be discussed in further detail at your follow- up appointment, if applicable. Please Follow Up With: Darshan Nathan MD When: Please call to schedule 2 week follow up appointment. [phone]
[2020-07-03] MEDS: oxyCODONE 5 MG Tablet PO ×2 (10:55→16:24)
[2020-07-03] MEDS: Acetaminophen 325 MG Tablet 650 MG PO ×2 (10:55→16:24)
[2020-07-03] MEDS: Citalopram 20 MG Tablet 40 MG PO (10:57)
--- NOTE | 2020-07-03 12:05 | PHA.DC.MC ---
Pharmacy Service has performed discharge medication reconciliation and counseling for this patient. 1. ACETAMINOPHEN 650MG PO Q4H PRN PAIN/FEVER 2. OXYCODONE 5-10MG PO Q4H PRN PAIN 4-10 The patient's discharge medication list was reviewed for discrepancies and discrepancies were resolved. Home Medications citalopram 20 mg tablet 40 mg PO DAILY #60 tab 03/20/20 Desogestrel-Ethinyl Estradiol [Apri 28 Day Tablet] 1 tablet PO QDAY 07/02/20 Acetaminophen [Tylenol Tablet] 650 mg PO Q4H PRN PRN tablet 07/03/20 Oxycodone [Oxyir] 5 - 10 mg PO Q4H PRN PRN 5 Days #30 tablet 07/03/20 The patient was counseled on the following discharge medications and changes in medications for homegoing were reviewed. The Reason for Use, instructions for use, and potential side effects were reviewed for all new medications. The patient's questions regarding all of their medications were answered. The patient was able to verbally demonstrate an understanding of their discharge medications.
== END 2020-07-03 17:25 | disposition home or self-care (01) ==
LOC: ED 20:36 → MS3 21:37
PROVIDERS: Admitting Provider Surgery; Emergency Provider Student in an Organized Health Care Education/Training Program; PCP Family Medicine; Visit Provider Surgery
PROC: 0DTJ4ZZ Resection of Appendix, Percutaneous Endoscopic Approach (ICD-10-PCS; CPT 44970; principal; 2020-07-03 05:30)
DX: K35.80 Unspecified acute appendicitis (principal); F41.9 Anxiety disorder, unspecified; F32.9 Major depressive disorder, single episode, unspecified; J45.909 Unspecified asthma, uncomplicated; E66.9 Obesity, unspecified; Z68.42 Body mass index [BMI] 45.0-49.9, adult; N80.9 Endometriosis, unspecified
CPT/HCPCS: 44970; 74177; 80048; 81001; 84703; 85025; 87426; 88304; 88305; 93005; 96361; 96365; 96366; 96375; 96376; 99218; 99283; J7030; J7050; Q9967; A4216; C1760; G0378; J2405

== ENCOUNTER 2020-08-02 18:47 | Emergency (ER) | payer MEDICAID, SELFPAY ==
[2020-08-02 18:49] VITALS: BP 152/93; PULSE 127; RESP 22; TEMP 36.6; O2SAT 98; BMI 50.3
[2020-08-02 18:53] VITALS: PULSE 143; O2SAT 98
--- NOTE | 2020-08-02 19:02 | CT_ITS ---
STUDY: CTA CHEST REASON FOR EXAM: Female, 30 years old. Tachycardia. RADIATION DOSAGE (If Supplied By Facility): CTDIvol = ( 13.845 ) mGy, DLP = ( 466.75 ) mGycm TECHNIQUE: The examination was performed with the intravenous administration of IV 100mL Isovue-370. Post-processing of the angiographic images was performed, with multiplanar reformation and 3D reconstruction. Individualized dose optimization techniques were used for this CT. COMPARISON: None. FINDINGS: Normal enhancement of the main pulmonary artery and right and left pulmonary arteries. Normal enhancement of the bilateral peripheral pulmonary arteries. There is no demonstrated pulmonary embolism. Normal thoracic aorta and visualized great vessels. There is no demonstrated aortic dissection. Normal heart and pericardium. There is mild stranding in the anterior mediastinal fat. Question residual thymic tissue. The mediastinum is otherwise unremarkable. Normal hilar regions. Normal visualized trachea and bronchi. The lungs are well expanded. Normal pulmonary parenchyma. Normal pleura. Normal chest wall structures. Normal osseous structures. Normal visualized upper abdomen. CT/CTA Chest W/WO Contrast IMPRESSION: Normal CTA chest examination, without a demonstrated pulmonary embolism or arterial dissection. Electronically Signed: Dino Castellanos DO at 20:33 EDT Tel [phone], Service support ,
--- NOTE | 2020-08-02 19:03 | EKG12_ITS ---
Test Reason : CP Blood Pressure : / mmHG Vent. Rate : 118 BPM Atrial Rate : 118 BPM P-R Int : 142 ms QRS Dur : 078 ms QT Int : 318 ms P-R-T Axes : 041 052 020 degrees QTc Int : 445 ms Sinus tachycardia Otherwise normal ECG Confirmed by PHONG REYES, NOAH ([id number]), editorial writer JULIANNE PEGUERO ([id number]) on 08/06/2020 2:55:19 PM Referred By: JOVON Confirmed By:NOAH DARLING MD
[2020-08-02] MEDS: 0.9% Normal Saline 1,000 ML 1000 ML IV (19:11)
[2020-08-02 19:13] LABS: Absolute Lymphocyte Count 2.36 X10^3/uL (0.83-4.51); Absolute Neutrophil Count 10.4 X10^3/uL (2.0-7.7); Basophil# 0.05 X10^3/uL; Basophil% 0.4 % (0-1); Eosinophil# 0.16 X10^3/uL; Eosinophils% 1.2 % (0-5); Hematocrit 38.7 % (37-47); Lymphocyte # 2.36 X10^3/ul (0.83-4.51); Mean Corpuscular Hgb 26.1 pg (27.0-32.0); Mean Corpuscular Volume 84.1 fL (81-99); Mean Platelet Vol. 9.6 fl (6.2-12.0); Monocyte# 0.87 X10^3/uL; Monocyte% 6.3 % (0-10); NRBC Flagged by Analyzer 0 % (0-5); Neutrophil # 10.36 X10^3/uL (2.7-7.7); Neutrophil % 74.6 % (47-70); Platelet Count 460 K/mm3 (150-450); RBC Distribution Width CV 14.4 % (11.6-14.6); RBC Distribution Width SD 44.1 fl (35.1-43.9); White Blood Count 13.9 K/mm3 (4.4-11.0)
[2020-08-02 19:21] LABS: Internal QC Validated? YES +Cl - CLEAR BKGD; Pregnancy, Serum, hCG Quali. NEGATIVE Negative
[2020-08-02 19:22] LABS: International Normalized Ratio 1.1; Prothrombin Time (Protime)PT. 13.4 SECONDS (11.7-14.9)
[2020-08-02 19:23] LABS: Partial Thromboplast Time 31.4 Seconds (24.1-36.2)
[2020-08-02 19:28] LABS: ALB/GLOB Ratio 0.7 RATIO (0.9-2.4); AST(SGOT) 43 U/L (15-37); Alanine Aminotransfer ALT/SGPT 78 U/L (13-56); Albumin, Serum 3.2 g/dL (3.2-5.0); Alkaline Phosphatase 102 U/L (45-117); Anion Gap 5 (5-15); BUN 10 mg/dL (7-18); BUN/Creat Ratio 15.1 RATIO (10-20); Calcium,Total 9.2 mg/dL (8.5-10.1); Chloride 109 mmol/L (98-107); Creatinine, Serum 0.66 mg/dL (0.55-1.02); EST Glomerular Filtration Rate 113 mL/min (>60); Est Glom Filt Rate - Afr Amer 136 mL/min (>60); Estimated Creatinine Clearance 104.98 ml/min; Globulin 4.5 g/dL (2.2-4.2); Glucose 116 mg/dL (74-106); Protein, Total 7.7 g/dL (6.4-8.2); Sodium Level 139 mmol/L (136-145)
[2020-08-02 19:29] LABS: Red Blood Cells-Urine 0 SEEN /hpf (0-5)
[2020-08-02 19:30] LABS: Color, Urine Yellow (Yellow); Glucose, Dipstick Normal (Normal); Ketone-Dipstick 5 mg/dl (Negative); Leukocyte Esterase-Dipstick 25 /ul (Negative); Nitrite-Dipstick Negative (Negative); Occult Blood-Urine 10 /ul (Negative); Protein-Dipstick 15 mg/dl (Negative); Urine Clarity Sl. Cloudy (Clear); Urine Urobilinogen 1 mg/dl (Normal)
[2020-08-02 19:31] LABS: Urine Bilirubin Dipstick 1 mg/dL (Negative)
[2020-08-02 20:20] LABS: Squamous Epithelial Cells - UA 10-25 SEEN /hpf (5-10); White Blood Cells 0-5 SEEN /hpf (0-5)
[2020-08-02 20:21] LABS: Bacteria RARE /hpf (None Seen); Mucous, Urine 1+ /hpf (<or=2+)
[2020-08-02 20:33] VITALS: BP 134/74; PULSE 105; RESP 16; O2SAT 98
--- NOTE | 2020-08-02 21:24 | EDS_ITS ---
HPI History of Present Illness Chief Complaint: Chest Pain Informant: patient Onset/Context/Timing Onset: Yesterday Activity at onset: gradual Timing: Continuous Quality: Positive for Pressure Location: Left Parasternal Worsened By: - (Tachycardia) Relieved By: Nothing Associated Symptoms: Positive for Diaphoresis, Lightheadedness and Palpitations; Negative for Nausea, Vomiting, Dyspnea, Cough, Fever and Acid Reflux Narrative Narrative: Patient presents with palpitations that have been constant since yesterday. Patient states she feels like her heart is racing. Patient admits to some pressure over her left upper chest. Patient states this has gradually gotten worse. Patient did have recent surgery for appendicitis. Patient admits to some lightheadedness. Patient also admits to some diaphoresis. Patient denies any shortness of breath. Patient denies any cough or fevers. Patient denies any nausea or vomiting. CVD Risk Factors: Negative for Hypertension, Diabetes, Hypercholesterolemia, Family History 1' </=55 and Smoking PE Risk Factors: Positive for Recent Travel/Surgery; Negative for Prior DVT or PE, Cancer and OCP + Smoking + >/=35 PFSH PFSH Medical History 35 weeks gestation of Acute appendicitis Anemia affecting Anxiety Cephalopelvic disproportion Influenza vaccine administered Iron deficiency anemia during SROM (spontaneous rupture of membranes) Home Medications citalopram 20 mg tablet 40 mg PO DAILY #60 tab 03/20/20 [Rx Last Taken 07/01/20 22:00] desogestrel-ethinyl estradiol 1 tablet PO QDAY 07/02/20 [History Last Taken 07/01/20 22:00] acetaminophen 650 mg PO Q4H PRN PRN tablet 07/03/20 [Rx Last Taken Unknown] Allergy/AdvReac Type Severity Reaction Status Date / Time No Known Allergies Allergy Verified 07/17/20 14:14 Family History Father Diabetes Hypertension Surgical History delivery delivered History of tonsillectomy and adenoidectomy S/P appendectomy Social History Smoking Status: Never smoker alcohol intake: never substance use type: does not use seatbelt use: always do you feel safe at home: Yes additional social history: Tdjqlqabd-Pmarx-Qskdomxa Patient is [employer]LET[employer] ROS ROS ED Constitutional Constitutional ED: Reports sweats; Denies chills or fever(s) Eyes Eyes: Denies blurry vision or change in vision ENT ENT ED: Denies rhinorrhea or sore throat Cardiovascular Cardiovascular: Reports as per HPI, chest pain and palpitations Respiratory/Chest Respiratory/Chest: Denies cough or dyspnea Gastrointestinal Gastrointestinal: Denies abdominal pain, nausea or vomiting Genitourinary Genitourinary ED: Denies dysuria or hematuria Musculoskeletal Musculoskeletal: Denies back pain or neck pain Integumentary Denies abscess or rash Neurologic Neurologic: Reports headache(s); Denies weakness Allergic/Immunologic Allergic/Immunologic ED: Denies mouth swelling or urticaria EXAM Physical Exam Const Vital Signs: 08/02/20 18:49 08/02/20 18:53 08/02/20 19:00 Temperature 97.9 F Temperature Source Temporal Pulse Rate 127 H 143 H Respiratory Rate 22 H Respiratory Effort Normal Blood Pressure 152/93 H Blood Pressure Mean 112 Pulse Ox 98 Oxygen Delivery Method Room Air 08/02/20 20:33 08/02/20 21:29 Temperature Temperature Source Pulse Rate 105 H 106 H Respiratory Rate 16 19 H Respiratory Effort Blood Pressure 134/74 H 134/68 H Blood Pressure Mean 94 Pulse Ox 98 96 Oxygen Delivery Method Room Air Positive well nourished, well developed and obese General Appearance ED: well developed Nutritional Appearance: obese HEENT normocephalic and atraumatic Eyes PERRL and EOMs intact bilaterally Neck supple and no JVD Resp normal respiratory effort and clear to auscultation bilaterally Effort and Inspection: Negative for respiratory distress Cardio regular rhythm Rate: tachycardic GI normal to inspection, nondistended, normoactive bowel sounds, soft to palpation, non-tender and non-distended Extremity normal to inspection General Extremety ED: Negative for edema or tenderness General Extremity: Negative for edema Neuro oriented x3, CN's II-XII intact bilaterally and no sensory deficits noted Sensorium / Orientation: awake and alert Motor Exam: strength 5/5 throughout Psych mental status grossly normal Heart Score History: Moderately Suspicious ECG: Normal Age: </= 45 years Risk Factors: No Risk Factors Troponin: </= Normal Limit Score: 1 MDM MDM MDM Narrative Medical decision making narrative: EKG was obtained. On my interpretation, it showed a sinus tachycardia with a rate of 118. MN interval, QRS interval, and QTc intervals were all normal. [place] was normal. There are no acute ST or T wave changes. CTA of the chest was obtained. There is no pulmonary embolism or aortic dissection. There is no acute process noted. This was interpreted by the radiologist and reviewed by myself. CBC showed a mild leukocytosis of 13.9. Platelets were slightly elevated at 460. PT with INR and PTT were normal. Comprehensive metabolic profile was essentially within normal limits. Serum hCG was negative. Urinalysis does not show any evidence of urinary tract infection. Patient was advised of her findings. Patient was feeling better on reevaluation. Patient's heart rate improved after IV fluids. Patient was instructed to drink plenty of fluids. Patient was instructed to follow-up with her primary care physician in 5 to 7 days. Patient was instructed to follow-up with her surgeon as scheduled. Patient understood and was agreeable with the plan. All questions were answered. Lab Data Attestation: I reviewed the patient's lab results. Labs: Laboratory Results - last 24 hr 08/02/20 08/02/20 08/02/20 19:05 19:05 19:05 WBC 13.9 H RBC 4.60 Hgb 12.0 Hct 38.7 MCV 84.1 MCH 26.1 L MCHC 31.0 L RDW Std Deviation 44.1 H RDW Coeff of Khadar 14.4 Plt Count 460 H MPV 9.6 Immature Gran % (Auto) 0.500 Neut % (Auto) 74.6 H Lymph % (Auto) 17.0 L [place] % (Auto) 6.3 Eos % (Auto) 1.2 Baso % (Auto) 0.4 Absolute Neuts (auto) 10.4 H Absolute Lymphs (auto) 2.36 Nucleated RBC % 0 PT 13.4 INR 1.1 APTT 31.4 Sodium 139 Potassium 4.0 Chloride 109 H Carbon Dioxide 25.0 Anion Gap 5 BUN 10 Creatinine 0.66 Estim Creat Clear Calc 104.98 Est GFR (MDRD) Af Amer 136 Est GFR (MDRD) Non-Af 113 BUN/Creatinine Ratio 15.1 Glucose 116 H Calcium 9.2 Total Bilirubin 0.90 AST 43 H ALT 78 H Alkaline Phosphatase 102 Total Protein 7.7 Albumin 3.2 Globulin 4.5 H Albumin/Globulin Ratio 0.7 L Serum , Qual Urine Color Urine Clarity Urine pH Ur Specific [place] Urine Protein Urine Glucose (UA) Urine Ketones Urine Occult Blood Urine Nitrite Urine Bilirubin Urine Urobilinogen Ur Leukocyte Esterase Urine RBC Urine WBC Ur Squamous Epith Cells Urine Bacteria Urine Mucus 08/02/20 08/02/20 19:05 19:20 WBC RBC Hgb Hct MCV MCH MCHC RDW Std Deviation RDW Coeff of Khadar Plt Count MPV Immature Gran % (Auto) Neut % (Auto) Lymph % (Auto) [place] % (Auto) Eos % (Auto) Baso % (Auto) Absolute Neuts (auto) Absolute Lymphs (auto) Nucleated RBC % PT INR APTT Sodium Potassium Chloride Carbon Dioxide Anion Gap BUN Creatinine Estim Creat Clear Calc Est GFR (MDRD) Af Amer Est GFR (MDRD) Non-Af BUN/Creatinine Ratio Glucose Calcium Total Bilirubin AST ALT Alkaline Phosphatase Total Protein Albumin Globulin Albumin/Globulin Ratio Serum , Qual NEGATIVE Urine Color Yellow Urine Clarity Sl. Cloudy Urine pH 5.0 Ur Specific [place] 1.020 Urine Protein 15 H Urine Glucose (UA) Normal Urine Ketones 5 H Urine Occult Blood 10 H Urine Nitrite Negative Urine Bilirubin 1 H Urine Urobilinogen 1 H Ur Leukocyte Esterase 25 H Urine RBC 0 SEEN Urine WBC 0-5 SEEN Ur Squamous Epith Cells 10-25 SEEN Urine Bacteria RARE Urine Mucus 1+ Radiography Diagnostic Testing: Radiology Impression Chest CTA 08/02/20 19:02 IMPRESSION: Normal CTA chest examination, without a demonstrated pulmonary embolism or arterial dissection. Electronically Signed: Dino Castellanos DO at 20:33 EDT Tel [phone], Service support , EKG Initial EKG: Attestation: I personally reviewed and interpreted this EKG as follows: Interpretation: No Acute Injury Pattern and Sinus Tachycardia (118) Discharge Plan Triage Chief Complaint: Chest Pain ED Provider: Pietro Mi Dx/Rx/DC Orders Clinical Impression: Tachycardia, Dehydration Instructions: ED Dehydration (Adult) Prescriptions: No Action citalopram 20 mg tablet 40 mg PO DAILY Qty: 60 RF: 6 desogestrel-ethinyl estradiol 1 EACH tablet 1 tablet PO QDAY RF: 0 acetaminophen 325 MG tablet 650 mg PO Q4H PRN PRN (Reason: P/F) RF: 0 Stand Alone Forms: ED Work / School Excuse Primary Care Provider: Martinez Chappell Referrals: Martinez Chappell DO [Primary Care Provider] - 3-5 Days Disposition Disposition: Home, self care Discharge Date/Time: 08/02/20 21:37
[2020-08-02 21:29] VITALS: BP 134/68; PULSE 106; RESP 19; O2SAT 96
== END 2020-08-02 21:37 | disposition home or self-care (01) ==
PROVIDERS: Emergency Provider Emergency Medicine; PCP Family Medicine
DX: R00.0 Tachycardia, unspecified (principal); E86.0 Dehydration; E66.9 Obesity, unspecified; Z68.43 Body mass index [BMI] 50.0-59.9, adult
CPT/HCPCS: 71275; 80053; 81001; 84703; 85025; 85610; 85730; 93005; 96360; 96361; 99284; J7030; Q9967; A4216

== ENCOUNTER 2020-12-24 09:45 | Emergency (ER) | payer MEDICAID, SELFPAY ==
[2020-12-24 09:46] VITALS: BP 173/101; PULSE 113; RESP 20; TEMP 36.1; O2SAT 98; BMI 49.8
--- NOTE | 2020-12-24 10:02 | EKG12_ITS ---
Test Reason : CHEST PAIN Blood Pressure : / mmHG Vent. Rate : 089 BPM Atrial Rate : 089 BPM P-R Int : 138 ms QRS Dur : 080 ms QT Int : 364 ms P-R-T Axes : 050 027 019 degrees QTc Int : 442 ms Normal sinus rhythm Normal ECG Confirmed by SALVADOR REYES, MARIAMA ([id number]), electronic news gathering editor JULIANNE PEGUERO ([id number]) on 12/25/2020 7:39:59 AM Referred By: RADHA Confirmed By:MARIAMA FRANCO MD
--- NOTE | 2020-12-24 10:02 | RAD_ITS ---
STUDY: X-RAY CHEST REASON FOR EXAM: Female, 30 years old. chest pain TECHNIQUE: Single AP portable view of the chest. COMPARISON: 08/02/2020. FINDINGS: Mild cardiac enlargement. Pulmonary vascularity unremarkable. Aorta unremarkable. No focal patchy airspace opacities. No pleural effusions. Upper abdomen unremarkable. Osseous structures intact. No pneumothorax. RAD/Chest 1 View (Portable) IMPRESSION: No focal patchy airspace opacities or effusions Mild cardiac enlargement Electronically Signed: Pietro Ceballos DO at 11:13 EDT Tel , Service support ,
[2020-12-24 10:18] VITALS: O2SAT 97
[2020-12-24 10:21] LABS: Absolute Lymphocyte Count 1.83 X10^3/uL (0.83-4.51); Absolute Neutrophil Count 7.6 X10^3/uL (2.0-7.7); Basophil# 0.03 X10^3/uL; Basophil% 0.3 % (0-1); Eosinophil# 0.07 X10^3/uL; Eosinophils% 0.7 % (0-5); Hematocrit 35.5 % (37-47); Lymphocyte # 1.83 X10^3/ul (0.83-4.51); Lymphocyte % 18.1 % (19-41); Mean Corpuscular Hgb 26.1 pg (27.0-32.0); Mean Corpuscular Volume 84.1 fL (81-99); Mean Platelet Vol. 9.2 fl (6.2-12.0); Monocyte% 4.9 % (0-10); NRBC Flagged by Analyzer 0 % (0-5); Neutrophil # 7.63 X10^3/uL (2.7-7.7); Neutrophil % 75.5 % (47-70); Platelet Count 443 K/mm3 (150-450); RBC Distribution Width CV 14.6 % (11.6-14.6); RBC Distribution Width SD 44.5 fl (35.1-43.9); Red Blood Count 4.22 M/mm3 (4.2-5.4); White Blood Count 10.1 K/mm3 (4.4-11.0)
[2020-12-24 10:37] LABS: D-Dimer Quantitative (DVT/PE) 0.46 FEU/ug/m (0.27-0.49)
[2020-12-24 10:43] LABS: Anion Gap 9 (5-15); BUN 11 mg/dL (7-18); BUN/Creat Ratio 16.2 RATIO (10-20); Calcium,Total 8.7 mg/dL (8.5-10.1); Chloride 108 mmol/L (98-107); Creatinine, Serum 0.68 mg/dL (0.55-1.02); EST Glomerular Filtration Rate 109 mL/min (>60); Est Glom Filt Rate - Afr Amer 132 mL/min (>60); Estimated Creatinine Clearance 106.36 ml/min; Glucose 92 mg/dL (74-106); Potassium 4.1 mmol/L (3.5-5.1); Sodium Level 140 mmol/L (136-145); Troponin-I HS 4 pg/mL (3.0-54.0)
--- NOTE | 2020-12-24 10:47 | ED.VIS.CHEST ---
HPI History of Present Illness Chief Complaint: Chest Pain Narrative Narrative: 30-year-old female presenting with fast heart rate and left-sided chest pain. She states it is pressure-like. Patient also states it hurts when she takes a deep breath. Patient denies any history of DVT/PE. She denies any cardiac history. Patient states she has a history of fast heart rate. She also states she had a history of abnormal thyroid studies after but this is resolved and she is not on any medications. Patient states that she was passing medicine today at work and noticed that her heart rate was 150 he came to the ER because she was having some chest pain. [facility] Medical History 35 weeks gestation of Acute appendicitis Anemia affecting Anxiety Cephalopelvic disproportion Influenza vaccine administered Iron deficiency anemia during SROM (spontaneous rupture of membranes) Home Medications citalopram 20 mg tablet 40 mg PO DAILY #60 tab 03/20/20 [Rx Last Taken 07/01/20 22:00] desogestrel-ethinyl estradiol 1 tablet PO QDAY 07/02/20 [History Last Taken 07/01/20 22:00] acetaminophen 650 mg PO Q4H PRN PRN tablet 07/03/20 [Rx Last Taken Unknown] Allergy/AdvReac Type Severity Reaction Status Date / Time No Known Allergies Allergy Verified 12/24/20 09:47 Family History Father Diabetes Hypertension Surgical History delivery delivered History of tonsillectomy and adenoidectomy S/P appendectomy Social History Smoking Status: Never smoker alcohol intake: never substance use type: does not use seatbelt use: always do you feel safe at home: Yes additional social history: [id number]-Tukqp-Pggourlv Patient is [employer] ROS ROS ED Constitutional Constitutional ED: Denies chills or fever(s) Eyes Eyes: Denies blurry vision or change in vision ENT ENT ED: Denies rhinorrhea or sore throat Cardiovascular Cardiovascular: Reports chest pain, palpitations and racing heartbeat Respiratory/Chest Respiratory/Chest: Denies cough or dyspnea Gastrointestinal Gastrointestinal: Denies abdominal pain, nausea or vomiting Genitourinary Genitourinary ED: Denies dysuria or hematuria Musculoskeletal Musculoskeletal: Denies arthralgias or myalgias Integumentary Denies Abrasions or rash Neurologic Neurologic: Denies headache(s) or paresthesias EXAM Physical Exam Const Vital Signs: 12/24/20 09:46 12/24/20 10:18 12/24/20 11:00 Temperature 97.0 F L Temperature Source Temporal Pulse Rate 113 H 88 Respiratory Rate 20 H 16 Respiratory Effort Normal Blood Pressure 173/101 H 133/78 H Blood Pressure Mean 125 96 Pulse Ox 98 97 98 Oxygen Delivery Method Room Air Room Air Room Air Positive well nourished General Appearance ED: NAD; Negative for pallor HEENT Reports moist mucous membranes normocephalic Eyes PERRL and EOMs intact bilaterally Resp normal respiratory effort Effort and Inspection: respiratory distress Cardio regular rhythm Rate: tachycardic Neuro oriented x3, CN's II-XII intact bilaterally and no sensory deficits noted Sensorium / Orientation: awake and alert Motor Exam: strength 5/5 throughout Psych mental status grossly normal Skin General Skin Exam: Negative for jaundice or pallor Heart Score History: Slightly/Non-Suspicious ECG: Normal Age: </= 45 years Risk Factors: No Risk Factors Troponin: </= Normal Limit Score: 0 MDM MDM MDM Narrative Medical decision making narrative: Patient presenting with left-sided chest pain and tachycardia. The tachycardia is not new. She is had this in the past. She also expresses concern that her thyroid has been off in the past. EKG on my interpretation shows a normal sinus rhythm ventricular rate of 89 bpm without sign of ischemic change or dysrhythmia. Chest x-ray on my interpretation shows no acute cardiopulmonary process and the radiologist does agree. CBC is within normal limits. BMP is also normal. D-dimer is negative at 0.46. Troponins x2 are 4 and 5. This effectively rules out ACS. I did check her TSH which is elevated however her T3 and T4 are normal. Given this I feel the patient is stable to be discharged home. She will follow-up with her primary care physician to ensure resolution. Patient discharged home in stable condition. Impression: 1. Chest pain noncardiac 2. Tachycardia Lab Data Labs: Laboratory Results - last 24 hr 12/24/20 12/24/2012/24/21 10:15 10:15 10:15 WBC 10.1 RBC 4.22 Hgb 11.0 L Hct 35.5 L MCV 84.1 MCH 26.1 L MCHC 31.0 L RDW Std Deviation 44.5 H RDW Coeff of Khadar 14.6 Plt Count 443 MPV 9.2 Immature Gran % (Auto) 0.500 Neut % (Auto) 75.5 H Lymph % (Auto) 18.1 L [place] % (Auto) 4.9 Eos % (Auto) 0.7 Baso % (Auto) 0.3 Absolute Neuts (auto) 7.6 Absolute Lymphs (auto) 1.83 Nucleated RBC % 0 D-Dimer Quant (PE/DVT) 0.46 Sodium 140 Potassium 4.1 Chloride 108 H Carbon Dioxide 23.0 Anion Gap 9 BUN 11 Creatinine 0.68 Estim Creat Clear Calc 106.36 Est GFR (MDRD) Af Amer 132 Est GFR (MDRD) Non-Af 109 BUN/Creatinine Ratio 16.2 Glucose 92 Calcium 8.7 Troponin I High Sens 4 TSH Free T4 Free T3 pg/dL 12/24/20 12/24/20 12/24/20 11:45 11:45 11:45 WBC RBC Hgb Hct MCV MCH MCHC RDW Std Deviation RDW Coeff of Khadar Plt Count MPV Immature Gran % (Auto) Neut % (Auto) Lymph % (Auto) [place] % (Auto) Eos % (Auto) Baso % (Auto) Absolute Neuts (auto) Absolute Lymphs (auto) Nucleated RBC % D-Dimer Quant (PE/DVT) Sodium Potassium Chloride Carbon Dioxide Anion Gap BUN Creatinine Estim Creat Clear Calc Est GFR (MDRD) Af Amer Est GFR (MDRD) Non-Af BUN/Creatinine Ratio Glucose Calcium Troponin I High Sens 5 TSH 10.80 H Free T4 0.79 Free T3 pg/dL 2.8 Radiography Diagnostic Testing: Radiology Impression Chest X-Ray 12/24/20 10:02 IMPRESSION: No focal patchy airspace opacities or effusions Mild cardiac enlargement Electronically Signed: Pietro Ceballos DO at 11:13 EDT Tel , Service support , Discharge Plan Triage Chief Complaint: Chest Pain ED Provider: Anam Butler Dx/Rx/DC Orders Instructions: Understanding Tachycardia, ED Chest Pain, Noncardiac Prescriptions: No Action citalopram 20 mg tablet 40 mg PO DAILY Qty: 60 RF: 6 desogestrel-ethinyl estradiol 1 EACH tablet 1 tablet PO QDAY RF: 0 acetaminophen 325 MG tablet 650 mg PO Q4H PRN PRN (Reason: P/F) RF: 0 Primary Care Provider: Martinez Chappell Referrals: Martinze Chappell DO [Primary Care Provider] - Disposition Disposition: Home, Self Care
[2020-12-24 11:00] VITALS: BP 133/78; PULSE 88; RESP 16; O2SAT 98
[2020-12-24 12:17] LABS: Troponin-I HS 5 pg/mL (3.0-54.0)
[2020-12-24 13:05] LABS: Free T3 2.8 pg/mL (2.18-3.98); T4 Free Direct 0.79 ng/dL (0.76-1.46)
[2020-12-24 13:20] VITALS: BP 128/97; PULSE 90; RESP 16; O2SAT 98
== END 2020-12-24 13:23 | disposition home or self-care (01) ==
PROVIDERS: Emergency Provider Student in an Organized Health Care Education/Training Program; PCP Family Medicine
DX: R07.89 Other chest pain (principal); R00.0 Tachycardia, unspecified; Z79.899 Other long term (current) drug therapy
CPT/HCPCS: 71045; 80048; 84439; 84443; 84481; 84484; 85025; 85379; 93005; 99284; A4216

== ENCOUNTER → 2021-01-03 08:52 | Outpatient (CLI) | payer MEDICAID, SELFPAY ==
--- NOTE | 2021-01-03 08:56 | ECHOCS_ITS ---
Reason For Study: SOB Procedure This was a 2D Doppler, Color Flow transthoracic echocardiogram. The study was technically difficult. Due to body habitus. Contrast injection was performed. Exam performed in department. PT felt increase in SOB & chest pressure after Definity injection. SOB & chest pressure resolved within 10 minutes.. Left Ventricle Normal left ventricle. The estimated ejection fraction is EF 55-60 %. Right Ventricle Normal right ventricle. Normal systolic function. Atria Normal left atrium. Normal right atrium. Mitral Valve The mitral valve is structurally normal. No prolapse or stenosis seen. No mitral valve insufficiency. Tricuspid Valve Normal tricuspid valve. No tricuspid valve insufficiency. Aortic Valve Difficult to visualize all cusps Consider cardiac MRI for better evaluation as Out patient. Pulmonic Valve The pulmonic valve is not well visualized. Great Vessels Normal aortic root. Pericardium/Pleural No pericardial effusion. MMode/2D Measurements & Calculations LVIDd: 4.9 cm IVSd: 1.0 cm Ao root diam: 2.8 cm LVIDs: 3.2 cm LVPWd: 1.0 cm RVDd: 2.8 cm FS: 36.0 % LAV(MOD-bp): 59.0 ml LVAd ap4: 33.2 cm2 LVAd ap2: 36.2 cm2 LAV(MOD-bp) Indexed: 26.0 ml/m2 LVLd ap4: 9.7 cm LVLd ap2: 8.8 cm LAV(MOD-sp2): 57.8 ml EDV(MOD-sp4): 97.1 ml EDV(MOD-sp2): 127.9 ml LAV(MOD-sp4): 57.3 ml EDV(sp4-el): 95.8 ml EDV(sp2-el): 126.7 ml LVAs ap4: 18.6 cm2 LVAs ap2: 21.1 cm2 LVLs ap4: 7.9 cm LVLs ap2: 7.2 cm ESV(MOD-sp4): 39.6 ml ESV(MOD-sp2): 52.3 ml ESV(sp4-el): 37.2 ml ESV(sp2-el): 52.1 ml EF(MOD-sp4): 59.2 % EF(MOD-sp2): 59.1 % EF(sp4-el): 61.2 % SV(MOD-sp4): 57.4 ml SV(MOD-sp2): 75.6 ml SV(sp4-el): 58.6 ml LA dimension(2D): 3.6 cm LA A4 area: 18.5 cm2 RA A4 area: 15.1 cm2 Time Measurements MV dec time: 0.23 sec Doppler Measurements & Calculations MV E max aldair: 104.2 cm/sec Lat Peak E' Aldair: 15.6 cm/sec Med Peak E' Aldair: 10.9 cm/sec MV A max aldair: 57.4 cm/sec E/E' lat: 6.7 E/E' med: 9.6 MV E/A: 1.8 Ao V2 max: 164.5 cm/sec LV V1 max: 112.9 cm/sec PA V2 max: 111.8 cm/sec Ao max P.8 mmHg LV V1 max P.1 mmHg ECHO/Echo Complete W/ Contrast Interpretation Summary The estimated ejection fraction is EF 55-60 %. Normal LV systolic function Ordering Physician: Ta^Martinez^^^DO Referring Physician: Martinez Chappell Performed By: Mariana Gandhi RDCS, RVT
== END ==
PROVIDERS: PCP Family Medicine; Referring Provider Family Medicine; Visit Provider Family Medicine
DX: R06.02 Shortness of breath (principal)
CPT/HCPCS: 93306; Q9957; A4216; C8929; J3490

== ENCOUNTER → 2021-07-17 | Outpatient (CLI) | payer MEDICAID, SELFPAY ==
[2021-07-17 17:21] LABS: Amphetamine Urine VISTA NEGATIVE (<1000 ng/mL); Barbiturate Urine VISTA NEGATIVE (< 200 ng/mL); Benzodiazepine Urine VISTA NEGATIVE (< 200 ng/mL); Cocaine Urine VISTA NEGATIVE (< 300 ng/mL); Ecstacy Urine VISTA NEGATIVE (< 500 ng/mL); Methadone Urine VISTA NEGATIVE (< 300 ng/mL); PCP Urine VISTA NEGATIVE (< 25 ng/mL); THC Urine VISTA NEGATIVE (< 50 ng/mL); Vista UDS pH Range 6
[2021-07-20 18:07] LABS: Chlamydia By Nucleic Acid AMP Negative (Negative)
[2021-07-20 20:16] LABS: Gonococcus By Nucleic Acid AMP Negative (Negative)
== END | disposition home or self-care (01) ==
LOC: LABSPEC 16:07
PROVIDERS: PCP Family Medicine; Visit Provider Obstetrics & Gynecology
DX: Z34.90 Encounter for supervision of normal pregnancy, unspecified, unspecified trimester (principal)
CPT/HCPCS: 80307; 87086; 87088; 87491; 87591

== ENCOUNTER → 2021-07-31 | Outpatient (CLI) | payer MEDICAID, SELFPAY ==
[2021-07-31 10:58] LABS: Absolute Lymphocyte Count 2.29 X10^3/uL (0.83-4.51); Absolute Neutrophil Count 7.1 X10^3/uL (2.0-7.7); Basophil# 0.04 X10^3/uL; Basophil% 0.4 % (0-1); Eosinophil# 0.13 X10^3/uL; Eosinophils% 1.3 % (0-5); Hematocrit 37.8 % (37-47); Lymphocyte # 2.29 X10^3/ul (0.83-4.51); Lymphocyte % 22.6 % (19-41); Mean Corp Hgb Conc 31.7 g/dL (32-36); Mean Corpuscular Hgb 26.4 pg (27.0-32.0); Mean Corpuscular Volume 83.1 fL (81-99); Mean Platelet Vol. 9.1 fl (6.2-12.0); Monocyte# 0.52 X10^3/uL; Monocyte% 5.1 % (0-10); NRBC Flagged by Analyzer 0 % (0-5); Neutrophil % 69.9 % (47-70); Platelet Count 433 K/mm3 (150-450); RBC Distribution Width CV 14.5 % (11.6-14.6); RBC Distribution Width SD 43.6 fl (35.1-43.9); Red Blood Count 4.55 M/mm3 (4.2-5.4); White Blood Count 10.2 K/mm3 (4.4-11.0)
[2021-07-31 11:47] LABS: NATERA MAILED SPECIMEN
[2021-07-31 11:58] LABS: Glucose Challenge Gest 1H 50g 124 mg/dL (70-140); T4 Free Direct 0.78 ng/dL (0.76-1.46); Thyroid Stim Hormone (TSH) 5.18 uIU/mL (0.358-3.74)
[2021-07-31 12:12] LABS: HIV - WCH Non-Reactive (Nonreactive); Hepatitis B Surface Antigen Non-Reactive (Nonreactive); Hepatitis C Antibody Non-Reactive (Nonreactive); Rubella IgG Reactive (Nonreactive); Syphilis Antibodies Non-reactive
== END | disposition home or self-care (01) ==
LOC: PAVLAB 10:27
PROVIDERS: PCP Family Medicine; Referring Provider Obstetrics & Gynecology; Visit Provider Obstetrics & Gynecology
DX: O99.210 Obesity complicating pregnancy, unspecified trimester (principal); O99.280 Endocrine, nutritional and metabolic diseases complicating pregnancy, unspecified trimester; E07.9 Disorder of thyroid, unspecified
CPT/HCPCS: 36415; 82950; 84439; 84443; 85025; 86703; 86762; 86780; 86803; 86850; 86900; 86901; 87340

== ENCOUNTER → 2021-08-15 | Outpatient (CLI) | payer MEDICAID, SELFPAY ==
[2021-08-15 11:22] LABS: Thyroid Stim Hormone (TSH) 3.44 uIU/mL (0.358-3.74)
== END | disposition home or self-care (01) ==
PROVIDERS: PCP Family Medicine; Referring Provider Obstetrics & Gynecology; Visit Provider Obstetrics & Gynecology
DX: E07.9 Disorder of thyroid, unspecified (principal)
CPT/HCPCS: 36415; 84443

== ENCOUNTER 2021-10-14 00:34 | Emergency (ER) | payer OTHER, MEDICAID, SELFPAY ==
[2021-10-14 00:35] VITALS: BP 146/75; PULSE 97; RESP 18; TEMP 36.3; O2SAT 97; BMI 53.8
--- NOTE | 2021-10-14 00:56 | RAD_ITS ---
EXAM: XR LEFT ANKLE COMPLETE, 3 OR MORE VIEWS CLINICAL INDICATION: None. TECHNIQUE: Frontal, lateral and oblique views of the left ankle. This report was created using [employer] report generation technology. COMPARISON: None. FINDINGS: BONES/JOINTS: Small plantar and prominent posterior calcaneal enthesophytes. No significant joint effusion. Ankle mortise is intact. No acute fracture. No subluxation. Normal alignment. No sclerotic or destructive changes observed. SOFT TISSUES: Soft tissue swelling suspected along the medial malleolus. No radiopaque foreign body. RAD/Ankle min 3 Views IMPRESSION: No acute or healing fracture or malalignment. Calcaneal enthesopathy. Electronically Signed: Demetris Reid MD at 1:54 EDT ,
--- NOTE | 2021-10-14 00:56 | RAD_ITS ---
EXAM: XR RIGHT KNEE, 3 VIEWS CLINICAL INDICATION: injury TECHNIQUE: Three views of the right knee. This report was created using [employer] report generation technology. COMPARISON: None. FINDINGS: BONES/JOINTS: Mild lateral subluxation of the patella. No acute fracture. No subluxation. Normal alignment. Preservation of the joint space. No sclerotic or destructive changes observed. SOFT TISSUES: Unremarkable. No soft tissue swelling or gas. No radiopaque foreign body. RAD/Knee 4 or More Views IMPRESSION: Mild lateral subluxation of the patella. Otherwise unremarkable exam. Electronically Signed: Demetris Reid MD at 1:53 EDT ,
--- NOTE | 2021-10-14 01:00 | EDS_ITS ---
HPI History of Present Illness Chief Complaint: Lower Extremity Injury Informant: patient Onset/Context/Timing Onset: Today Current Severity: Mild Maximum Severity: Moderate Narrative Narrative: Patient presents after fall. She states that she rolled her ankle when walking in her driveway and stepping off the edge into the grass. She rolled her left ankle and fell onto her right knee and has abrasions to that area. She is having difficulty ambulating. She is currently 22 weeks . She is not sure if she hit her abdomen when she fell. She does report some mild abdominal pain. Blood type is a positive. [facility] Medical History Acute appendicitis Anxiety Autonomic disorder Tachycardia Home Medications [id number] 1 mg tablet 1 tab PO 10/14/21 [History Last Taken Unknown] Allergy/AdvReac Type Severity Reaction Status Date / Time No Known Allergies Allergy Verified 10/14/21 00:38 Family History Father Diabetes Hypertension Mother Jose Angel's disease Other Rheumatoid arthritis Surgical History delivery delivered History of tonsillectomy and adenoidectomy S/P appendectomy Social History Smoking Status: Never smoker alcohol intake: never substance use type: does not use seatbelt use: always do you feel safe at home: Yes additional social history: Cabnioh-Gotxp-Uokkccol 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 ED Constitutional Constitutional ED: Denies chills or fever(s) Eyes Eyes: Denies change in vision or discharge from eye(s) ENT ENT ED: Denies discharge from eye(s), rhinorrhea or sore throat Cardiovascular Cardiovascular: Denies chest pain or palpitations Respiratory/Chest Respiratory/Chest: Denies cough or dyspnea Gastrointestinal Gastrointestinal: Reports abdominal pain; Denies diarrhea, nausea or vomiting Genitourinary Genitourinary ED: Denies difficulty urinating or dysuria Musculoskeletal Musculoskeletal: Reports extremity pain; Denies back pain Integumentary Reports Abrasions; Denies rash Neurologic Neurologic: Denies headache(s) or weakness Allergic/Immunologic Allergic/Immunologic ED: Denies lip swelling or urticaria EXAM Physical Exam Const Vital Signs: 10/14/21 00:35 Temperature 97.4 F L Temperature Source Temporal Pulse Rate 97 Respiratory Rate 18 Blood Pressure 146/75 H Blood Pressure Mean 98 Pulse Ox 97 Oxygen Delivery Method Room Air Positive well nourished and well developed General Appearance ED: well developed HEENT Reports normocephalic and head/scalp atraumatic Eyes PERRL and EOMs intact bilaterally Neck supple Chest Wall inspection of chest normal and palpation of chest normal Resp normal respiratory effort and clear to auscultation bilaterally Cardio regular rate and regular rhythm GI non-tender Auscultation: hypoactive bowel sounds Palpation: soft Extremity Extremity Narrative: Abrasions to the right anterior knee with mild tenderness. Good range of motion. No tenderness of the foot or ankle on the right. Left lower extremity examination reveals edema with tenderness of the lateral malleolus. No tenderness over the foot itself. Achilles is intact. No tenderness at the left knee or hip. Neuro oriented x3 and no sensory deficits noted Sensorium / Orientation: alert Motor Exam: strength 5/5 throughout Psych mental status grossly normal Skin Skin Narrative: Abrasions to right knee as noted above. MDM MDM MDM Narrative Medical decision making narrative: Patient given Tylenol for pain. She reports her tetanus is up-to-date. Order to cleanse the right knee abrasions is placed. X-ray of the right knee as well as left ankle obtained. heart tones ordered. Radiography Diagnostic Testing: Clinical Impression(s) from Imaging Studies Ankle X-Ray 10/14/21 00:56 IMPRESSION: No acute or healing fracture or malalignment. Calcaneal enthesopathy. Electronically Signed: Demetris Reid MD at 1:54 EDT , Knee X-Ray 10/14/21 00:56 IMPRESSION: Mild lateral subluxation of the patella. Otherwise unremarkable exam. Electronically Signed: Demetris Reid MD at 1:53 EDT , Treatment and Re-Evaluation Narrative: Left ankle and right knee x-rays per my interpretation reveal no acute bony injury. Radiology interpretation is reviewed. Nursing staff was unable to get heart tones. OB will be asked to come up and get this for us. OB was tied up so I performed a bedside ultrasound. Fetus is active. heart tones are normal. Patient be written off work tomorrow. I did speak with [employer]. They advised that as long as heart tones were normal no further monitoring was needed. Discharge Plan Triage Chief Complaint: Lower Extremity Injury ED Provider: Lyubov Patel Dx/Rx/DC Orders Clinical Impression: Ankle sprain, Fall, Second trimester , Abrasion of knee Instructions: ED Abrasion, ED Ankle Sprain (Adult) Prescriptions: No Action 1 mg Tablet 1 tab PO Stand Alone Forms: ED Work / School Excuse Primary Care Provider: Martinez Chappell Referrals: Martinez Chappell DO [Primary Care Provider] - Nay Ray MD [STAFF PHYSICIAN] - 1 Week Disposition Disposition: Home, Self Care
[2021-10-14] MEDS: Acetaminophen 500 MG Tablet 1000 MG PO (01:21)
[2021-10-14 02:57] VITALS: BP 148/82; PULSE 78; RESP 16; TEMP 36.9; O2SAT 99
== END 2021-10-14 02:58 | disposition home or self-care (01) ==
PROVIDERS: Emergency Provider Emergency Medicine; PCP Family Medicine; Visit Provider Emergency Medicine
DX: O9A.212 Injury, poisoning and certain other consequences of external causes complicating pregnancy, second trimester (principal); S93.402A Sprain of unspecified ligament of left ankle, initial encounter; S80.211A Abrasion, right knee, initial encounter; X50.1XXA Overexertion from prolonged static or awkward postures, initial encounter; Y93.01 Activity, walking, marching and hiking; Y99.8 Other external cause status; Y92.008 Other place in unspecified non-institutional (private) residence as the place of occurrence of the external cause; Z3A.22 22 weeks gestation of pregnancy
CPT/HCPCS: 73564; 73610; 99283

== ENCOUNTER → 2021-10-30 | Outpatient (CLI) | payer OTHER, MEDICAID, SELFPAY ==
--- NOTE | 2021-10-30 12:36 | US_ITS ---
STUDY: SECOND AND THIRD TRIMESTER OBSTETRICAL ULTRASOUND REASON FOR EXAM: Female, 31 years old anatomy scan TECHNIQUE: Transabdominal TECHNICAL QUALITY: Limited. Examination limited due to obesity. PRIOR ULTRASOUND: None. FINDINGS: There is a single intrauterine fetus. The fetus is in a cephalic presentation. There is demonstrated cardiac activity with a heart rate of 153 bpm. There is a normal amniotic fluid volume. The largest amniotic fluid pocket measures 3.9 cm x 3.6 cm. The amniotic fluid index (FELICE) is with normal limits. The placenta is left lateral and low lying but not previa in location. The tip of the placenta is at 6 mm from the cervical os. There are Grade 0 placental changes. The cervix measures 5.6 cm in length. The adnexal regions are not visualized. BIOMETRY: BPD: 6.1 cm: 24 weeks, 5 days HC: 21.67 cm: 23 weeks, 4 days AC: 19.79 cm: 24 weeks, 3 days FL: 4.48 cm: 24 weeks, 5 days CI: 85% FL/BPD: 73% FL/HC: FL/AC: 23% HC/AC: 1.09 age by current US: 23 weeks, 4 days. RONALDO by current US: 02/22/2022. Estimated weight: 721 grams, +/- 180 grams, 51 %. Age by LMP: 24 weeks, 3 days. RONALDO by LMP: 02/16/2022. ANATOMY: Gender: Female Cranium: The lateral ventricles are non-visualized. The choroid plexus is non-visualized. The cerebellum is non-visualized.. The cisterna magna is non-visualized. The face, nose and lips are not visualized. Limited in visualization due to patient''s body habitus. Chest: The heart is non-visualized. Abdomen/Pelvis: Normal diaphragm. Normal stomach. Normal abdominal wall. Normal cord insertion. Normal 3 vessel cord. Normal kidneys. Normal bladder. Spine: Normal cervical spine. Normal thoracic spine. Normal lumbar spine. Normal sacrum. Extremities: Normal bilateral upper extremities. Normal bilateral lower extremities. US/OB Anatomy Scan IMPRESSION: Single live intrauterine gestation with a mean gestational age of 23 weeks and 4 days. There is a low lying left lateral placenta. Follow-up recommended. Limited anatomical evaluation of the fetus as described. Electronically Signed: Nicanor Pratt MD at 15:16 EDT ,
== END | disposition home or self-care (01) ==
LOC: OPUS 12:34
PROVIDERS: PCP Family Medicine; Visit Provider Obstetrics & Gynecology
DX: O44.42 Low lying placenta NOS or without hemorrhage, second trimester (principal); Z3A.23 23 weeks gestation of pregnancy
CPT/HCPCS: 76805; 76817

== ENCOUNTER → 2021-11-19 | Outpatient (CLI) | payer OTHER, MEDICAID, SELFPAY ==
--- NOTE | 2021-11-19 11:25 | US_ITS ---
STUDY: SECOND AND THIRD TRIMESTER OBSTETRICAL ULTRASOUND - LIMITED REASON FOR EXAM: Female, 31 years old Follow-up heart views AND PLACENTA LOCATION LMP: 05/12/2021. PRIOR ULTRASOUND: Comparison is made with prior study 10/30/2021. TECHNIQUE: Transabdominal and Transvaginal TECHNICAL QUALITY: Adequate. FINDINGS: There is a single intrauterine fetus. The fetus is in a cephalic presentation. There is demonstrated cardiac activity with a heart rate of 136 bpm. There is a normal amniotic fluid volume. The largest amniotic fluid pocket measures 5.3 cm. The amniotic fluid index (FELICE) is within normal limits. The placenta is anterior and low lying but not previa in location. The tip of the placenta is at 1.5 cm from the os. There are Grade 1 placental changes. The cervix measures 6 cm in length. The 4 chamber of the heart is normal. BIOMETRY: Age by LMP: 27 weeks, 2 days. RONALDO by LMP: 02/16/2022. IMPRESSION: Persistent anterior low-lying placenta. The tip of the placenta lies at 1.5 cm from the cervical os. Electronically Signed: Nicanor Pratt MD at 12:39 EDT , STUDY: FIRST TRIMESTER OBSTETRICAL ULTRASOUND REASON FOR EXAM: Female, 31 years old Follow-up heart views AND PLACENTA LOCATION LMP: 05/12/2021 TECHNIQUE: Transvaginal TECHNICAL QUALITY: Adequate. PRIOR ULTRASOUND: None. FINDINGS: The cervical length measures 6 cm. Low-lying anterior placenta. The placental tip is at 1.5 cm from the cervical os. US/OB Limited (No Biometrics) IMPRESSION: Low-lying anterior placenta. Electronically Signed: Nicanor Pratt MD at 12:40 EDT ,
== END | disposition home or self-care (01) ==
LOC: US 11:25
PROVIDERS: PCP Family Medicine; Referring Provider Nurse Practitioner Women's Health; Visit Provider Nurse Practitioner Women's Health
DX: Z34.90 Encounter for supervision of normal pregnancy, unspecified, unspecified trimester (principal)
CPT/HCPCS: 76815; 76817

== ENCOUNTER → 2021-12-03 | Outpatient (CLI) | payer OTHER, MEDICAID, SELFPAY ==
--- NOTE | 2021-12-03 13:08 | US_ITS ---
STUDY: SECOND AND THIRD TRIMESTER OBSTETRICAL ULTRASOUND - LIMITED REASON FOR EXAM: Female, 31 years old placenta follow-up LMP: 05/12/2021. PRIOR ULTRASOUND: Comparison is made with prior study 11/19/2021. TECHNIQUE: Transabdominal and Transvaginal TECHNICAL QUALITY: Adequate. FINDINGS: There is a single intrauterine fetus. The fetus is in a cephalic presentation. There is demonstrated cardiac activity with a heart rate of 131 bpm. The placenta is anterior in location and is not low lying. There are Grade 1 placental changes. The cervix measures 4.7 cm in length. BIOMETRY: Age by LMP: 29 weeks, 2 days. RONALDO by LMP: 02/16/2022. US/OB Limited (No Biometrics) IMPRESSION: The placenta is anterior in location. No evidence of placenta previa at this time. Electronically Signed: Nicanor Pratt MD at 14:26 EDT ,
== END | disposition home or self-care (01) ==
LOC: US 13:07
PROVIDERS: PCP Family Medicine; Referring Provider Nurse Practitioner Women's Health; Visit Provider Nurse Practitioner Women's Health
DX: O44.43 Low lying placenta NOS or without hemorrhage, third trimester (principal); Z3A.29 29 weeks gestation of pregnancy
CPT/HCPCS: 76815; 76817

== ENCOUNTER → 2021-12-05 | Outpatient (CLI) | payer OTHER, MEDICAID, SELFPAY ==
[2021-12-05 14:39] LABS: Basophil# 0.03 X10^3/uL; Basophil% 0.2 % (0-1); Eosinophil# 0.17 X10^3/uL; Eosinophils% 1.3 % (0-5); Hematocrit 31.7 % (37-47); Lymphocyte % 17.8 % (19-41); Mean Corp Hgb Conc 31.5 g/dL (32-36); Mean Corpuscular Volume 82.3 fL (81-99); Mean Platelet Vol. 9.3 fl (6.2-12.0); Monocyte% 4.5 % (0-10); NRBC Flagged by Analyzer 0 % (0-5); Neutrophil # 10.02 X10^3/uL (2.7-7.7); Neutrophil % 74.5 % (47-70); Platelet Count 393 K/mm3 (150-450); RBC Distribution Width CV 15.7 % (11.6-14.6); RBC Distribution Width SD 46.8 fl (35.1-43.9); Red Blood Count 3.85 M/mm3 (4.2-5.4); White Blood Count 13.5 K/mm3 (4.4-11.0)
[2021-12-05 15:27] LABS: Glucose Challenge Gest 1H 50g 136 mg/dL (70-140)
== END | disposition home or self-care (01) ==
LOC: PAVLAB 14:28
PROVIDERS: PCP Family Medicine; Referring Provider Obstetrics & Gynecology; Visit Provider Obstetrics & Gynecology
DX: O99.280 Endocrine, nutritional and metabolic diseases complicating pregnancy, unspecified trimester (principal); E07.9 Disorder of thyroid, unspecified; Z3A.00 Weeks of gestation of pregnancy not specified
CPT/HCPCS: 36415; 82950; 84443; 85025

== ENCOUNTER → 2021-12-11 | Outpatient (CLI) | payer OTHER, MEDICAID, SELFPAY ==
[2021-12-11 07:49] LABS: Glucose GTT-Gestation. Fasting 87 mg/dL (<105)
[2021-12-11 09:02] LABS: Glucose GTT-Gestational 1 Hr 119 mg/dL (<190)
[2021-12-11 09:59] LABS: Glucose GTT-Gestational 2 Hr 109 mg/dL (<165)
[2021-12-11 10:40] LABS: Glucose GTT-Gestational 3 Hr 88 L (<145)
== END | disposition home or self-care (01) ==
LOC: LAB 06:47
PROVIDERS: PCP Family Medicine; Referring Provider Obstetrics & Gynecology; Visit Provider Obstetrics & Gynecology
DX: Z13.1 Encounter for screening for diabetes mellitus (principal)
CPT/HCPCS: 36415; 82951; 82952

== ENCOUNTER 2022-01-02 22:17 | Outpatient (CLI) | payer OTHER, MEDICAID, SELFPAY ==
[2022-01-02 22:45] VITALS: PULSE 99; O2SAT 98
[2022-01-02 22:50] VITALS: PULSE 96; O2SAT 98
[2022-01-02 22:52] VITALS: BP 134/63; PULSE 96
[2022-01-02 22:57] VITALS: PULSE 94; TEMP 36.8; O2SAT 98
[2022-01-02 23:03] VITALS: BMI 56.8
[2022-01-03] MEDS: Acetaminophen 500 MG Tablet 1000 MG PO (00:46)
--- NOTE | 2022-01-03 07:36 | OB.TRI.PN_ITS ---
Progress Notes Date of Service: 01/02/22 Progress Note: Patient presents for triage evaluation secondary to cramping FHT: 130 Moderate variability reactive no decelerations category I tracing Eldridge: no regular Contractions Assessment and plan: threatened PTL no significant dilation Reactive NST, reassuring maternal and status patient discharged to home to follow-up as scheduled. See problem list details for additional plan information. Charges/Coding Procedures Urinary/Genital [id number]: [id number] non-stress test Interp
== END 2022-01-03 01:15 | disposition home or self-care (01) ==
LOC: WPOUT 22:36 → WP 22:36
PROVIDERS: PCP Family Medicine; Visit Provider Obstetrics & Gynecology
DX: O47.9 False labor, unspecified (principal); Z3A.00 Weeks of gestation of pregnancy not specified
CPT/HCPCS: 59025; 59050; 99218; G0378

== ENCOUNTER → 2022-01-10 | Outpatient (CLI) | payer OTHER, MEDICAID, SELFPAY | END | disposition home or self-care (01) | LOC: LAB 15:07 | PROVIDERS: PCP Family Medicine; Visit Provider Obstetrics & Gynecology | DX: R69 Illness, unspecified (principal) ==

== ENCOUNTER → 2022-01-13 | Outpatient (CLI) | payer OTHER, MEDICAID, SELFPAY ==
[2022-01-13 10:37] LABS: Absolute Lymphocyte Count 2.49 X10^3/uL (0.83-4.51); Absolute Neutrophil Count 7.9 X10^3/uL (2.0-7.7); Basophil# 0.04 X10^3/uL; Basophil% 0.4 % (0-1); Eosinophil# 0.16 X10^3/uL; Eosinophils% 1.4 % (0-5); Hematocrit 33.6 % (37-47); Hemoglobin 10.4 g/dL (12.0-15.0); Lymphocyte # 2.49 X10^3/ul (0.83-4.51); Lymphocyte % 21.9 % (19-41); Mean Corpuscular Hgb 25.2 pg (27.0-32.0); Mean Corpuscular Volume 81.6 fL (81-99); Mean Platelet Vol. 9.5 fl (6.2-12.0); Monocyte# 0.71 X10^3/uL; Monocyte% 6.2 % (0-10); NRBC Flagged by Analyzer 0 % (0-5); Neutrophil # 7.85 X10^3/uL (2.7-7.7); Platelet Count 377 K/mm3 (150-450); RBC Distribution Width CV 16.7 % (11.6-14.6); RBC Distribution Width SD 49.3 fl (35.1-43.9); Red Blood Count 4.12 M/mm3 (4.2-5.4); White Blood Count 11.4 K/mm3 (4.4-11.0)
[2022-01-13 11:26] LABS: T4 Free Direct 0.68 ng/dL (0.76-1.46)
== END | disposition home or self-care (01) ==
LOC: PAVLAB 10:25
PROVIDERS: PCP Family Medicine; Referring Provider Obstetrics & Gynecology; Visit Provider Obstetrics & Gynecology
DX: O99.019 Anemia complicating pregnancy, unspecified trimester (principal); O99.280 Endocrine, nutritional and metabolic diseases complicating pregnancy, unspecified trimester; E03.9 Hypothyroidism, unspecified; Z3A.00 Weeks of gestation of pregnancy not specified
CPT/HCPCS: 36415; 84439; 85025

== ENCOUNTER 2022-01-16 11:24 | Outpatient (CLI) | payer OTHER, MEDICAID, SELFPAY ==
--- NOTE | 2022-01-16 11:27 | US_ITS ---
STUDY: SECOND AND THIRD TRIMESTER OBSTETRICAL ULTRASOUND - LIMITED REASON FOR EXAM: Female, 31 years old growth -- to be done with BPP LMP: 05/12/2021 PRIOR ULTRASOUND: Comparison is made with prior examination is 12/03/2021. TECHNIQUE: Transabdominal TECHNICAL QUALITY: Adequate. FINDINGS: There is a single intrauterine fetus. The fetus is in an oblique presentation with the head on the maternal left side. There is demonstrated cardiac activity with a heart rate of 128 bpm. There is a normal amniotic fluid volume. The largest amniotic fluid pocket measures 2.3 cm x 1.9 cm. The amniotic fluid index (FELICE) is 6.21 cm. The placenta is anterior in location and is not low lying. There are Grade 1 placental changes. The cervix measures 4.3 cm in length. BIOMETRY: BPD: 8.5 cm: 34 weeks, 2 days HC: 30.12 cm: 33 weeks, 3 days AC: 30.79 cm: 34 weeks, 5 days FL: 6.76 cm: 34 weeks, 5 days Age by LMP: 35 weeks, 4 days. RONALDO by LMP: 02/17/2020. age by prior US: 34 weeks, 5 days. RONALDO by prior US: 02/22/2022. age by current US: 33 weeks, 4 days. RONALDO by current US: 03/02/2022. Estimated weight: 2512 grams, +/- 377 grams, 28.2 percentile. US/OB Limited With Biometrics IMPRESSION: Single live uterine gestation with a mean gestational age of 34 weeks and 5 days. The measurements obtained today fall within the normal expected range. Electronically Signed: Nicanor Pratt MD at 15:02 EDT ,
--- NOTE | 2022-01-16 11:27 | US_ITS ---
STUDY: OBSTETRICAL ULTRASOUND - BIOPHYSICAL PROFILE REASON FOR EXAM: Female, 31 years old well being -- with OB GROWTH LMP: 05/12/2021. PRIOR ULTRASOUND: Comparison is made with prior study dated 01/16/2022. TECHNIQUE: Transabdominal TECHNICAL QUALITY: Adequate. FINDINGS: There is a single intrauterine fetus. The fetus is in an oblique presentation with the head on the maternal left side. There is demonstrated cardiac activity with a heart rate of 128 bpm. There is decreased amniotic fluid consistent with oligohydramnios. The largest amniotic fluid pocket measures 2.2 cm x 1.6 cm. The amniotic fluid index (FELICE) is 6.21 cm. The placenta is anterior in location and is not low lying. There are Grade 1 placental changes. Age by LMP: 34 weeks, 4 days. RONALDO by LMP: . BIOPHYSICAL PROFILE: Breathing Movements (FBM): 2 Gross Body Movements (GBM): 2 Tone (FT): 2 Amniotic Fluid Volume (AFV): 0 TOTAL SCORE: 6 / 8 US/Biophysical Prof W/O Non Stres IMPRESSION: Normal biophysical profile of 68. Electronically Signed: Nicanor Pratt MD at 15:33 EDT ,
[2022-01-16 13:35] VITALS: BP 129/72; PULSE 86; TEMP 37.3
[2022-01-16 13:43] VITALS: BMI 57.4
[2022-01-16] MEDS: Lactated Ringers 1,000 ML 999 ML IV (13:45)
[2022-01-16 14:01] LABS: Absolute Lymphocyte Count 1.58 X10^3/uL (0.83-4.51); Absolute Neutrophil Count 8.1 X10^3/uL (2.0-7.7); Basophil# 0.03 X10^3/uL; Basophil% 0.3 % (0-1); Eosinophil# 0.06 X10^3/uL; Eosinophils% 0.6 % (0-5); Hematocrit 31.7 % (37-47); Hemoglobin 10.2 g/dL (12.0-15.0); Lymphocyte # 1.58 X10^3/ul (0.83-4.51); Mean Corp Hgb Conc 32.2 g/dL (32-36); Mean Corpuscular Hgb 26.1 pg (27.0-32.0); Mean Corpuscular Volume 81.1 fL (81-99); Mean Platelet Vol. 9.7 fl (6.2-12.0); Monocyte# 0.61 X10^3/uL; Monocyte% 5.8 % (0-10); NRBC Flagged by Analyzer 0 % (0-5); Neutrophil # 8.13 X10^3/uL (2.7-7.7); Platelet Count 380 K/mm3 (150-450); RBC Distribution Width CV 16.7 % (11.6-14.6); Red Blood Count 3.91 M/mm3 (4.2-5.4); White Blood Count 10.6 K/mm3 (4.4-11.0)
[2022-01-16] MEDS: Betamethasone/Betamethasone 30 MG/5 ML Vial 12 MG IM (14:41)
[2022-01-16] MEDS: Lactated Ringers 1,000 ML 100 ML IV (15:15)
[2022-01-16 17:19] VITALS: BP 134/71; PULSE 100; TEMP 36.8
[2022-01-16 19:43] VITALS: BP 127/69; PULSE 95; TEMP 36.4; O2SAT 94
--- NOTE | 2022-01-16 22:15 | OB.TRI.HP_ITS ---
HPI - General HPI Narrative SIGIFREDO GOMEZ, is a 31 F who presents for ;borderline FELICE and no 2x2 pocket 10/30 BPP. she has been getting weekly BPPs due to BMI 57. she denies any vb lof admits good fm no regular ctx Maternal Data Information RONALDO Calculator Estimated Delivery Date Method Current WG Current Estimate 02/16/22 Manual 35w 4d Other Estimates 02/16/22 Ultrasound #1 35w 4d PFSH PFSH Medical History Acute appendicitis Anxiety Autonomic disorder Tachycardia Home Medications kscpkkuo-koz-[id number]-FA 1 mg tablet 1 tab PO 10/14/21 [History Last Taken Unknown] ferrous sulfate 142 mg (45 mg iron) tablet,extended release (Slow Fe) 142 mg PO DAILY #90 tabs 12/25/21 [Rx Last Taken Unknown] levothyroxine 25 mcg tablet (Synthroid) 25 mcg PO DAILY #30 tabs 01/14/22 [Rx Last Taken Unknown] Allergy/AdvReac Type Severity Reaction Status Date / Time No Known Allergies Allergy Verified 12/25/21 11:47 Family History Father Diabetes Hypertension Mother Jose Angel's disease Other Rheumatoid arthritis Surgical History delivery delivered History of tonsillectomy and adenoidectomy S/P appendectomy Social History Smoking Status: Never smoker alcohol intake: never substance use type: does not use seatbelt use: always do you feel safe at home: Yes additional social history: Jpkykxk-Yfiyu-Jtcgnwgj 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 Date Name GA/Weeks Outcome Route Bth Weight Gen Labor Lgth Anesthesia Del Locatn Provider FOB 02/07/20 Yair 39 live - full term 7lbs 4oz Male epidural [facility] Delivery Date: 02/07/20 Last Updated by: Sintia Knight SROM; CPD AoD 8 cm; LTCS; Moderate meconium Visit Details Expected Delivery Route/Plan RLTCS Plans Covid status: discussed Flu vaccine: discussed Tdap vaccine: given Rhogam: na LARC form signed: yes Problem list reviewed and updated with the most current plan of care details and appropriate orders placed. Relevant counseling for the gestational age provided. Continue routine care and follow up unless otherwise noted in visit notes/problem list details OB Flowsheet Initial Weight: Not Recorded Date -?-?-?-?-?-?-?-?-?-?-?-?- EGA Weight BP Urine Prot -?-?-?-?-?-?-?-?-?-?-?-?- Glucose FHR FuHt Pres Dilation -?-?-?-?-?-?-?-?-?-?-?-?- Effaced St Visit Note 07/17/21 -?-?-?-?-?-?-?-?-?-?-?-?- 9w 3d 302 lb 4 oz 144/78 -?-?-?-?-?-?-?-?-?-?-?-?- 180 -?-?-?-?-?-?-?-?-?-?-?-?- SM- CRL cons wit h lmp 07/31/21 -?-?-?-?-?-?-?-?-?-?-?-?- 11w 3d 302 lb 4 oz 132/78 Nega tive -?-?-?-?-?-?-?-?-?-?-?-?- Negative -?-?-?-?-?-?-?-?-?-?-?-?- -work in for i tchy red rash inner right groin, see exam 08/15/21 -?-?-?-?-?-?-?-?-?-?-?-?- 13w 4d 306 lb 112/84 Negative -?-?-?-?-?-?-?-?-?-?-?-?- Negative 150 -?-?-?-?-?-?-?-?-?-?-?-?- SM- no vb crampi ng repeta tsh today 09/13/21 -?-?-?-?-?-?-?-?-?-?-?-?- 17w 5d 308 lb 124/66 Negative -?-?-?-?-?-?-?-?-?-?-?-?- Negative 150 -?-?-?-?-?-?-?-?-?-?-?-?- sM- no vb lof no reuglar ctx 10/10/21 -?-?-?-?-?-?-?-?-?-?-?-?- 21w 4d 314 lb 134/72 Negative -?-?-?-?-?-?-?-?-?-?-?-?- Negative 145 -?-?-?-?-?-?-?-?-?-?-?-?- SM- no vb lof go od fm no regular ctx needs anatomy scan 11/07/21 -?-?-?-?-?-?-?-?-?-?-?-?- 25w 4d 316 lb 116/78 Negative -?-?-?-?-?-?-?-?-?-?-?-?- Negative 139 -?-?-?-?-?-?-?-?-?-?-?-?- JV- no lof, vagi nal bleeding, or cramping. plan nsts at 36 weeks due to obesity. 2nd glucola ordered. 11/27/21 -?-?-?-?-?-?-?-?-?-?-?-?- 28w 3d 317 lb 4 oz 124/72 Nega tive -?-?-?-?-?-?-?-?-?-?-?-?- Negative 152 -?-?-?-?-?-?-?-?-?-?-?-?- MH-No VB, LOF. G ood FM. US 12/03 to recheck placenta. Wants BS with [facility] and will need to sign title 19 12/12/21 -?-?-?-?-?-?-?-?-?-?-?-?- 30w 4d 322 lb 8 oz 138/81 Nega tive -?-?-?-?-?-?-?-?-?-?-?-?- Negative 137 -?-?-?-?--?-?-?-?-?-?-?-?- JV- placenta no longer previa. no complaints. plan for weekly nsts 36 weeks and on. rpt section with bs at 39 weeks. 12/25/21 -?-?-?-?-?-?-?-?-?-?-?-?- 32w 3d 322 lb 8 oz 127/79 Nega tive -?-?-?-?-?-?-?-?-?-?-?-?- Negative 148 -?-?-?-?-?-?-?-?-?-?-?-?- MH-No VB, LOF. G ood FM. Signed title 19 for bilat salpingectomy 01/10/22 -?-?-?-?-?-?-?-?-?-?-?-?- 34w 5d 322 lb 114/58 -?-?-?-?-?-?-?-?-?-?-?-?- 140 36 -?-?-?-?-?-?-?-?-?-?-?-?- SM- no vb lof go od fm no regular ctx 01/16/22 -?-?-?-?-?-?-?-?-?-?-?-?- 35w 4d 324 lb 8.327 oz 129/ 72 134/71 127/69 -?-?-?-?-?-?-?-?-?-?-?-?- -?-?-?-?-?-?-?-?-?-?-?-?- ROS Constitutional Constitutional: Reports systems reviewed and no addt'l complaints, except as documented and as per HPI ENT HEENT: Reports systems reviewed and no addt'l complaints, except as documented Cardiovascular Cardiovascular: Reports systems reviewed and no addt'l complaints, except as documented Respiratory/Chest Respiratory/Chest: Reports systems reviewed and no addt'l complaints, except as documented Gastrointestinal Gastrointestinal: Reports as per HPI Genitourinary Genitourinary: Reports as per HPI Musculoskeletal Musculoskeletal: Reports systems reviewed and no addt'l complaints, except as documented Integumentary Integumentary: Reports systems reviewed and no addt'l complaints, except as documented Neurologic Neurologic: Reports systems reviewed and no addt'l complaints, except as documented Physical Exam Const alert, oriented x3 and no apparent distress HEENT Head and Scalp: normocephalic and atraumatic Neck full ROM and no lymphadenopathy Chest inspection of chest normal Resp normal respiratory effort GI GI Narrative: gravid, abdomen nontender, AGA NST FHR Rate Baby A Baseline: 140 Variability:: Moderate Accelerations:: 15 x 15 Decelerations:: None NST Reactive:: Yes FHR Category:: Category I Uterine Activity:: no regular Assessment & Plan (1) Anxiety: COMMENT: discussed meds, celexa in past. counseling encouraged; stable (2) Tachycardia: COMMENT: was on metoprolol, stopped in . possible charles. (3) Previous delivery affecting : COMMENT: plan RLTCS; wants BS (4) Obesity affecting : COMMENT: 1 TM GCT, encouraged healthy weight gain. weekly bpp (5) : QUALIFIERS: Weeks of gestation: 34 weeks Qualified Code(s): Z3A.34 - 34 weeks gestation of COMMENT: NIPT low risk and previous carrier negative. Anatomy US normal but need follow-up heart views, FU views nl (6) Supervision of normal : COMMENT: PRR RONALDO 02/16/21 Lay Mazariegos [place] (7) Contraception management: COMMENT: Wants BS with RCS. Signed title 19: 12/25/21 (8) Anemia affecting : COMMENT: Ferrous gluconate daily; iron studies (9) Hypothyroid in , antepartum: COMMENT: discussed and ordered t4, if abnormal our office will order medication (10) Abnormal test: COMMENT: admits for IVFs, BMZ, repeat BPP in am Charges/Coding Visit Charges OBSV E&M: 57333 Initial observation care L3 Multi Select Codes Urinary/Genital Urinary/Genital CPT Codes: 94270-07 non-stress test Interp
[2022-01-17] MEDS: Lactated Ringers 1,000 ML 100 ML IV (01:06)
[2022-01-17 01:19] VITALS: O2SAT 97
[2022-01-17 01:23] VITALS: BP 111/58; PULSE 89; TEMP 36.7
[2022-01-17 05:51] VITALS: BP 119/56; PULSE 82; TEMP 37; O2SAT 93; O2SAT 96
--- NOTE | 2022-01-17 08:00 | US_ITS ---
STUDY: OBSTETRICAL ULTRASOUND - BIOPHYSICAL PROFILE REASON FOR EXAM: Female, 31 years old . Biophysical profile. LMP: 05/12/2021. PRIOR ULTRASOUND: Comparison is made with prior examination 02/16/2022. TECHNIQUE: Transabdominal TECHNICAL QUALITY: Adequate. FINDINGS: There is a single intrauterine fetus. The fetus is in a cephalic presentation. There is demonstrated cardiac activity with a heart rate of 129 bpm. There is a normal amniotic fluid volume. The largest amniotic fluid pocket measures 3.1 cm x 3 cm. The amniotic fluid index (FELICE) is 7.97 cm. The placenta is anterior in location and is not low lying. There are Grade 1 placental changes. Age by LMP: 35 weeks, 5 days. RONALDO by LMP: 02/16/2022. age by prior US: 33 weeks, 5 days. RONALDO by prior US: 03/02/2022. BIOPHYSICAL PROFILE: Breathing Movements (FBM): 2 Gross Body Movements (GBM): 2 Tone (FT): 2 Amniotic Fluid Volume (AFV): 2 TOTAL SCORE: 8 / 8 US/Biophysical Prof W/O Non Stres IMPRESSION: Normal biophysical profile of 10/28. Electronically Signed: Nicanor Pratt MD at 8:32 EDT ,
--- NOTE | 2022-01-17 08:51 | OB.TRI.HP_ITS ---
HPI - General HPI Narrative SIGIFREDO GOMEZ, is a 31 F admitted STO overnight for 10/30 bpp no 2x2 pocket. she denies any vb lof admits goodd fm no regualr ctx Maternal Data Information RONALDO Calculator Estimated Delivery Date Method Current WG Current Estimate 02/16/22 Manual 36w 4d Other Estimates 02/16/22 Ultrasound #1 36w 4d PFSH PFSH Medical History Acute appendicitis Anxiety Autonomic disorder Tachycardia Home Medications lhiogfbi-jqk-Yt-FA 1 mg tablet 1 tab PO 10/14/21 [History Last Taken Unknown] ferrous sulfate 142 mg (45 mg iron) tablet,extended release (Slow Fe) 142 mg PO DAILY #90 tabs 12/25/21 [Rx Last Taken Unknown] levothyroxine 25 mcg tablet (Synthroid) 25 mcg PO DAILY #30 tabs 01/14/22 [Rx Last Taken Unknown] Allergy/AdvReac Type Severity Reaction Status Date / Time No Known Allergies Allergy Verified 01/22/22 11:16 Family History Father Diabetes Hypertension Mother Jose Angel's disease Other Rheumatoid arthritis Surgical History delivery delivered History of tonsillectomy and adenoidectomy S/P appendectomy Social History Smoking Status: Never smoker alcohol intake: never substance use type: does not use seatbelt use: always do you feel safe at home: Yes additional social history: Qmgyxjq-Dxqls-Rbvhnsew 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 Date Name GA/Weeks Outcome Route Bth Weight Gen Labor Lgth Anesthesia Del Locatn Provider FOB 02/07/20 Yair 39 live - full term 7lbs 4oz Male epidural [facility] Delivery Date: 02/07/20 Last Updated by: Sintia Knight SROM; CPD AoD 8 cm; LTCS; Moderate meconium Visit Details Expected Delivery Route/Plan RLTCS Plans Covid status: discussed Flu vaccine: discussed Tdap vaccine: given Rhogam: na LARC form signed: yes Problem list reviewed and updated with the most current plan of care details and appropriate orders placed. Relevant counseling for the gestational age provided. Continue routine care and follow up unless otherwise noted in visit notes/problem list details OB Flowsheet Initial Weight: Not Recorded Date -?-?-?-?-?-?-?-?-?-?-?-?- EGA Weight BP Urine Prot -?--?-?-?-?-?-?-?-?-?-?-?- Glucose FHR FuHt Pres Dilation -?-?-?-?-?-?-?--?-?-?-?-?- Effaced St Visit Note 07/17/21 -?-?-?-?-?-?-?-?-?-?-?-?- 9w 3d 302 lb 4 oz 144/78 -?-?-?-?-?-?-?-?-?-?-?-?- 180 -?-?-?-?-?-?-?-?-?-?-?-?- SM- CRL cons wit h lmp 07/31/21 -?-?-?-?-?-?-?-?-?-?-?-?- 11w 3d 302 lb 4 oz 132/78 Nega tive -?-?-?-?-?-?-?-?-?-?-?-?- Negative -?-?-?-?-?-?-?-?-?-?-?-?- -work in for i tchy red rash inner right groin, see exam 08/15/21 -?-?-?-?-?-?-?-?-?-?-?-?- 13w 4d 306 lb 112/84 Negative -?-?-?-?-?-?-?-?-?-?-?-?- Negative 150 -?-?-?-?-?-?-?-?-?-?-?-?- SM- no vb crampi ng repeta tsh today 09/13/21 -?-?-?-?-?-?-?-?-?-?-?-?- 17w 5d 308 lb 124/66 Negative -?-?-?-?-?-?-?-?-?-?-?-?- Negative 150 -?-?-?-?-?-?-?-?-?-?-?-?- sM- no vb lof no reuglar ctx 10/10/21 -?-?-?-?-?-?-?-?-?-?-?-?- 21w 4d 314 lb 134/72 Negative -?-?-?-?-?-?-?-?-?-?-?-?- Negative 145 -?-?-?-?-?-?-?-?-?-?-?-?- SM- no vb lof go od fm no regular ctx needs anatomy scan 11/07/21 -?-?-?-?-?-?-?-?-?-?-?-?- 25w 4d 316 lb 116/78 Negative -?-?-?-?-?-?-?-?-?-?-?-?- Negative 139 -?-?-?-?-?-?-?-?-?-?-?-?- JV- no lof, vagi nal bleeding, or cramping. plan nsts at 36 weeks due to obesity. 2nd glucola ordered. 11/27/21 -?-?-?-?-?-?-?-?-?-?-?-?- 28w 3d 317 lb 4 oz 124/72 Nega tive -?-?-?-?-?-?-?-?-?-?-?-?- Negative 152 -?-?-?-?-?-?-?-?-?-?-?-?- MH-No VB, LOF. G ood FM. US 12/03 to recheck placenta. Wants BS with [facility] and will need to sign title 19 12/12/21 -?-?-?-?-?-?-?-?-?-?-?-?- 30w 4d 322 lb 8 oz 138/81 Nega tive -?-?-?-?-?-?-?-?-?-?-?-?- Negative 137 -?-?-?-?-?-?-?-?-?-?-?-?- JV- placenta no longer previa. no complaints. plan for weekly nsts 36 weeks and on. rpt section with bs at 39 weeks. 12/25/21 -?-?-?-?-?-?-?-?-?-?-?-?- 32w 3d 322 lb 8 oz 127/79 Nega tive -?-?-?-?-?-?-?-?-?--?-?-?- Negative 148 -?-?-?-?-?-?-?-?-?-?-?-?- MH-No VB, LOF. G ood FM. Signed title 19 for bilat salpingectomy 01/10/22 -?-?-?-?-?-?-?-?-?-?-?-?- 34w 5d 322 lb 114/58 -?-?-?-?-?-?-?-?-?-?-?-?- 140 36 -?-?-?-?-?-?-?-?-?-?-?-?- SM- no vb lof go od fm no regular ctx 01/16/22 -?-?-?-?-?-?-?-?-?-?-?-?- 35w 5d 324 lb 8.327 oz 129/ 72 134/71 127/69 111/58 119/56 119/58 -?-?-?-?-?-?-?-?-?-?-?-?- -?-?-?-?-?-?-?-?-?-?-?-?- 01/22/22 -?-?-?-?-?-?-?-?-?-?-?-?- 36w 3d 323 lb 8 oz 97/70 Nega tive -?-?-?-?-?-?-?-?-?-?-?-?- Negative 126 -?-?-?-?-?-?-?-?-?-?-?-?- JV- GBS collecte d. pt just barely made cut off for normal fluid. will check again on thursday and if low will delivery. ROS Constitutional Constitutional: Reports systems reviewed and no addt'l complaints, except as documented and as per HPI ENT HEENT: Reports systems reviewed and no addt'l complaints, except as documented Cardiovascular Cardiovascular: Reports systems reviewed and no addt'l complaints, except as documented Respiratory/Chest Respiratory/Chest: Reports systems reviewed and no addt'l complaints, except as documented Gastrointestinal Gastrointestinal: Reports as per HPI Genitourinary Genitourinary: Reports as per HPI Musculoskeletal Musculoskeletal: Reports systems reviewed and no addt'l complaints, except as documented Integumentary Integumentary: Reports systems reviewed and no addt'l complaints, except as documented Neurologic Neurologic: Reports systems reviewed and no addt'l complaints, except as documented Physical Exam Const alert, oriented x3 and no apparent distress HEENT Head and Scalp: normocephalic and atraumatic Neck full ROM and no lymphadenopathy Chest inspection of chest normal Resp normal respiratory effort GI GI Narrative: gravid, abdomen nontender, AGA Assessment & Plan (1) Abnormal test: COMMENT: admits for IVFs, BMZ, repeat BPP in am (2) Hypothyroid in , antepartum: COMMENT: discussed and ordered t4, if abnormal our office will order medication (3) Anemia affecting : COMMENT: Ferrous gluconate daily; iron studies (4) Contraception management: COMMENT: Wants BS with [facility]. Signed title 19: 12/25/21 (5) Supervision of normal : COMMENT: PRR RONALDO 02/16/21 Lay STARKS Yair Delmar (6) : QUALIFIERS: Weeks of gestation: 36 weeks Qualified Code(s): Z3A.36 - 36 weeks gestation of COMMENT: NIPT low risk and previous carrier negative. Anatomy US normal but need follow-up heart views, FU views nl (7) Obesity affecting : COMMENT: 1 TM GCT, encouraged healthy weight gain. weekly bpp (8) Previous delivery affecting : COMMENT: plan RLTCS; wants BS, scheduled for RLTCSBS 02/10 @ 12 with (9) Anxiety: COMMENT: discussed meds, celexa in past. counseling encouraged; stable (10) Tachycardia: COMMENT: was on metoprolol, stopped in . possible charles. PLAN: Plan repeat BPP today 10/28 nl kellie, continue oral hydration dc home after [place] second dose Charges/Coding Visit Charges Inpatient E&M: 60247 Disch Hosp
[2022-01-17 12:50] VITALS: BP 119/58; PULSE 85; TEMP 36.9
[2022-01-17] MEDS: Betamethasone/Betamethasone 30 MG/5 ML Vial 12 MG IM (13:56)
== END 2022-01-17 13:59 | disposition home or self-care (01) ==
LOC: US 11:25 → WPOUT 13:13 → WP 13:13
PROVIDERS: PCP Family Medicine; Referring Provider Obstetrics & Gynecology; Visit Provider Obstetrics & Gynecology
DX: O99.283 Endocrine, nutritional and metabolic diseases complicating pregnancy, third trimester (principal); E03.9 Hypothyroidism, unspecified; O99.343 Other mental disorders complicating pregnancy, third trimester; F41.9 Anxiety disorder, unspecified; O09.10 Supervision of pregnancy with history of ectopic pregnancy, unspecified trimester; O34.219 Maternal care for unspecified type scar from previous cesarean delivery; Z3A.34 34 weeks gestation of pregnancy; O99.214 Obesity complicating childbirth
CPT/HCPCS: 96360; 96361 ×15; 59025; 59050; 76816; 76819; 85025; 86850; 86900; 86901; 96372; 99218; J7120; G0378; J0702

== ENCOUNTER → 2022-01-17 | Outpatient (CLI) | payer OTHER, MEDICAID, SELFPAY ==
[2022-01-17 15:51] LABS: Absolute Lymphocyte Count 1.81 X10^3/uL (0.83-4.51); Absolute Neutrophil Count 11.6 X10^3/uL (2.0-7.7); Basophil# 0.03 X10^3/uL; Basophil% 0.2 % (0-1); Eosinophil# 0.02 X10^3/uL; Eosinophils% 0.1 % (0-5); Hematocrit 32.3 % (37-47); Hemoglobin 9.9 g/dL (12.0-15.0); Lymphocyte # 1.81 X10^3/ul (0.83-4.51); Lymphocyte % 12.2 % (19-41); Mean Corp Hgb Conc 30.7 g/dL (32-36); Mean Corpuscular Hgb 25.2 pg (27.0-32.0); Mean Corpuscular Volume 82.2 fL (81-99); Mean Platelet Vol. 10.1 fl (6.2-12.0); Monocyte# 1.01 X10^3/uL; Monocyte% 6.8 % (0-10); NRBC Flagged by Analyzer 0 % (0-5); Neutrophil # 11.64 X10^3/uL (2.7-7.7); Neutrophil % 78.9 % (47-70); Platelet Count 445 K/mm3 (150-450); RBC Distribution Width CV 16.6 % (11.6-14.6); RBC Distribution Width SD 49.4 fl (35.1-43.9); Red Blood Count 3.93 M/mm3 (4.2-5.4); White Blood Count 14.8 K/mm3 (4.4-11.0)
[2022-01-17 16:32] LABS: Vitamin B12 130 pg/mL (211-911)
[2022-01-17 16:34] LABS: Ferritin 29 ng/mL (8-252); Iron Binding Capacity,Total 501 ug/dL (250-450)
== END | disposition home or self-care (01) ==
LOC: LAB 14:07
PROVIDERS: Obstetrics & Gynecology; PCP Family Medicine; Visit Provider Nurse Practitioner Women's Health
DX: O99.280 Endocrine, nutritional and metabolic diseases complicating pregnancy, unspecified trimester (principal); E03.9 Hypothyroidism, unspecified; O99.019 Anemia complicating pregnancy, unspecified trimester; Z3A.00 Weeks of gestation of pregnancy not specified
CPT/HCPCS: 36415; 82607; 82728; 82746; 83550; 85025

== ENCOUNTER → 2022-01-20 | Outpatient (CLI) | payer OTHER, MEDICAID, SELFPAY ==
--- NOTE | 2022-01-20 12:35 | US_ITS ---
STUDY: OBSTETRICAL ULTRASOUND - BIOPHYSICAL PROFILE REASON FOR EXAM: Female, 31 years old WEEKLY BPP LMP: 05/12/2021. PRIOR ULTRASOUND: Comparison is made with prior study 01/17/2022. TECHNIQUE: Transabdominal TECHNICAL QUALITY: Adequate. FINDINGS: There is a single intrauterine fetus. The fetus is in a cephalic presentation. There is demonstrated cardiac activity with a heart rate of 147 bpm. There is a normal amniotic fluid volume. The largest amniotic fluid pocket measures 1.6 cm x 4.4 cm. The amniotic fluid index (FELICE) is 8.07 cm. The placenta is anterior in location and is not low lying. There are Grade 1 placental changes. Age by LMP: 36 weeks, 1 days. RONALDO by LMP: 02/16/2022. BIOPHYSICAL PROFILE: Breathing Movements (FBM): 2 Gross Body Movements (GBM): 2 Tone (FT): 2 Amniotic Fluid Volume (AFV): 2 TOTAL SCORE: 8 / 8 US/Biophysical Prof W/O Non Stres IMPRESSION: Normal biophysical profile of 10/28. Electronically Signed: Nicanor Pratt MD at 9:44 EDT ,
== END | disposition home or self-care (01) ==
LOC: US 12:34
PROVIDERS: PCP Family Medicine; Referring Provider Obstetrics & Gynecology; Visit Provider Obstetrics & Gynecology
DX: O99.213 Obesity complicating pregnancy, third trimester (principal); Z3A.36 36 weeks gestation of pregnancy
CPT/HCPCS: 76819

== ENCOUNTER → 2022-01-22 | Outpatient (CLI) | payer OTHER, MEDICAID, SELFPAY | END | disposition home or self-care (01) | PROVIDERS: PCP Family Medicine; Visit Provider Obstetrics & Gynecology | DX: Z34.90 Encounter for supervision of normal pregnancy, unspecified, unspecified trimester (principal) | CPT/HCPCS: 87081 ==

== ENCOUNTER 2022-01-24 13:35 | Outpatient (CLI) | payer OTHER, MEDICAID, SELFPAY ==
[2022-01-24 13:55] VITALS: BP 126/58; PULSE 93
[2022-01-24 14:00] VITALS: TEMP 36.6
[2022-01-24 14:04] VITALS: BMI 57.0
--- NOTE | 2022-01-27 09:42 | OB.TRI.HP_ITS ---
HPI - General General Date of Admission: 01/24/22 HPI Narrative SIGIFREDO GOMEZ, is a 31 F who presents to L&D for a non-stress test due to a 6/8 bpp. ( ordered for obesity) Maternal Data Information RONALDO Calculator Estimated Delivery Date Method Current WG Current Estimate 02/16/22 Manual 37w 1d Other Estimates 02/16/22 Ultrasound #1 37w 1d PFSH PFS Medical History Acute appendicitis Anxiety Autonomic disorder Tachycardia Home Medications dqzfaepf-dff-Gg-FA 1 mg tablet 1 tab PO 10/14/21 [History Last Taken 01/23/22] ferrous sulfate 142 mg (45 mg iron) tablet,extended release (Slow Fe) 142 mg PO DAILY #90 tabs 12/25/21 [Rx Last Taken 01/23/22] levothyroxine 25 mcg tablet (Synthroid) 25 mcg PO DAILY #30 tabs 01/14/22 [Rx Last Taken 01/24/22] Allergy/AdvReac Type Severity Reaction Status Date / Time No Known Allergies Allergy Verified 01/22/22 11:16 Family History Father Diabetes Hypertension Mother Jose Angel's disease Other Rheumatoid arthritis Surgical History delivery delivered History of tonsillectomy and adenoidectomy S/P appendectomy Social History Smoking Status: Never smoker alcohol intake: never substance use type: does not use seatbelt use: always do you feel safe at home: Yes additional social history: Kmtwwty-Zblfl-Cmjmjpuw 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 Date Name GA/Weeks Outcome Route Bth Weight Gen Labor Lgth Anesthesia Del Locatn Provider FOB 02/07/20 Yair 39 live - full term 7lbs 4oz Male epidural [facility] Delivery Date: 02/07/20 Last Updated by: Sintia Knight SROM; CPD AoD 8 cm; LTCS; Moderate meconium Visit Details Expected Delivery Route/Plan RLTCS Plans Covid status: discussed Flu vaccine: discussed Tdap vaccine: given Rhogam: na LARC form signed: yes Problem list reviewed and updated with the most current plan of care details and appropriate orders placed. Relevant counseling for the gestational age provided. Continue routine care and follow up unless otherwise noted in visit notes/problem list details OB Flowsheet Initial Weight: Not Recorded Date -?-?-?-?-?-?-?-?-?-?-?-?- EGA Weight BP Urine Prot -?-?-?-?-?-?-?-?-?-?-?-?- Glucose FHR FuHt Pres Dilation -?-?-?-?-?-?-?-?-?-?-?-?- Effaced St Visit Note 07/17/21 -?-?-?-?-?-?-?-?-?-?-?-?- 9w 3d 302 lb 4 oz 144/78 -?-?-?-?-?-?-?-?-?-?-?-?- 180 -?-?-?-?-?-?-?-?-?-?-?-?- SM- CRL cons wit h lmp 07/31/21 -?-?-?-?-?-?-?-?-?-?-?-?- 11w 3d 302 lb 4 oz 132/78 Nega tive -?-?-?-?-?-?-?-?-?-?-?-?- Negative -?-?-?-?-?-?-?-?-?-?-?-?- -work in for i tchy red rash inner right groin, see exam 08/15/21 -?-?-?-?-?-?-?-?-?-?-?-?- 13w 4d 306 lb 112/84 Negative -?-?-?-?-?-?-?-?-?-?-?-?- Negative 150 -?-?-?-?-?-?-?-?-?-?-?-?- SM- no vb crampi ng repeta tsh today 09/13/21 -?-?-?-?-?-?-?-?-?-?-?-?- 17w 5d 308 lb 124/66 Negative -?-?-?-?-?-?-?-?-?-?-?-?- Negative 150 -?-?-?-?-?-?-?-?-?-?-?-?- sM- no vb lof no reuglar ctx 10/10/21 -?-?-?-?-?-?-?-?-?-?-?-?- 21w 4d 314 lb 134/72 Negative -?-?-?-?-?-?-?-?-?-?-?-?- Negative 145 -?-?-?-?-?-?-?-?-?-?-?-?- SM- no vb lof go od fm no regular ctx needs anatomy scan 11/07/21 -?-?-?-?-?-?-?-?-?-?-?-?- 25w 4d 316 lb 116/78 Negative -?-?-?-?-?-?-?-?-?-?-?-?- Negative 139 -?-?-?-?-?-?-?-?-?-?-?-?- JV- no lof, vagi nal bleeding, or cramping. plan nsts at 36 weeks due to obesity. 2nd glucola ordered. 11/27/21 -?-?-?-?-?-?-?-?-?-?-?-?- 28w 3d 317 lb 4 oz 124/72 Nega tive -?-?-?-?-?-?-?-?-?-?-?-?- Negative 152 -?-?-?-?-?-?-?-?-?-?-?-?- MH-No VB, LOF. G ood FM. US 12/03 to recheck placenta. Wants BS with [facility] and will need to sign title 19 12/12/21 -?-?-?-?-?-?-?-?-?-?-?-?- 30w 4d 322 lb 8 oz 138/81 Nega tive -?-?-?-?-?-?-?-?-?-?-?-?- Negative 137 -?-?-?--?-?-?-?-?-?-?-?-?- JV- placenta no longer previa. no complaints. plan for weekly nsts 36 weeks and on. rpt section with bs at 39 weeks. 12/25/21 -?-?-?-?-?-?-?-?-?-?-?-?- 32w 3d 322 lb 8 oz 127/79 Nega tive -?-?-?-?-?-?-?-?-?-?-?-?- Negative 148 -?-?-?-?-?-?-?-?-?-?-?-?- MH-No VB, LOF. G ood FM. Signed title 19 for bilat salpingectomy 01/10/22 -?-?-?-?-?-?-?-?-?-?-?-?- 34w 5d 322 lb 114/58 -?-?-?-?-?-?-?-?-?-?-?-?- 140 36 -?-?-?-?-?-?-?-?-?-?-?-?- SM- no vb lof go od fm no regular ctx 01/22/22 -?-?-?-?-?-?-?-?-?-?-?-?- 36w 3d 323 lb 8 oz 97/70 Nega tive -?-?-?-?-?-?-?-?-?-?-?-?- Negative 126 -?-?-?-?-?-?-?-?-?-?-?-?- JV- GBS collecte d. pt just barely made cut off for normal fluid. will check again on thursday and if low will delivery. ROS Constitutional Constitutional: Reports systems reviewed and no addt'l complaints, except as documented Gastrointestinal Gastrointestinal: Denies bloating, constipation, cramping, diarrhea, nausea or vomiting Genitourinary Genitourinary: Reports other Details: Denies vaginal odor, vaginal bleeding, or vaginal discharge ; Denies difficulty urinating or flank pain NST FHR Rate Baby A Baseline: 140 Variability:: Moderate Accelerations:: 15 x 15 Decelerations:: None NST Reactive:: Yes FHR Category:: Category I Assessment & Plan (1) Low vitamin B12 level: COMMENT: add OTC Vitamin B12 1000mg daily (2) Abnormal test: COMMENT: admits for IVFs, BMZ, repeat BPP in am BPP 01/24/2022- 08/28(AFI7.7, MVP=3), NST reactive in WP=10/30 BPP (3) Hypothyroid in , antepartum: COMMENT: discussed and ordered t4, if abnormal our office will order medication (4) Anemia affecting : COMMENT: Ferrous gluconate daily; iron studies (5) Contraception management: COMMENT: Wants BS with [facility]. Signed title 19: 12/25/21 (6) Supervision of normal : COMMENT: PRR RONALDO 02/16/21 Lay STARKS Yair Delmar (7) : QUALIFIERS: Weeks of gestation: 36 weeks Qualified Code(s): Z3A.36 - 36 weeks gestation of COMMENT: NIPT low risk and previous carrier negative. Anatomy US normal but need follow-up heart views, FU views nl (8) Obesity affecting : COMMENT: 1 TM GCT, encouraged healthy weight gain. weekly bpp (9) Previous delivery affecting : COMMENT: plan RLTCS; wants BS, scheduled for RLTCSBS 02/10 @ 12 with (10) Tachycardia: COMMENT: was on metoprolol, stopped in . possible charles. (11) Anxiety: COMMENT: discussed meds, celexa in past. counseling encouraged; stable Charges/Coding Multi Select Codes Urinary/Genital Urinary/Genital CPT Codes: 33532-04 non-stress test Interp
== END 2022-01-24 14:52 | disposition home or self-care (01) ==
LOC: WPOUT 13:44 → WP 13:45
PROVIDERS: PCP Family Medicine; Referring Provider Obstetrics & Gynecology; Visit Provider Obstetrics & Gynecology
DX: O99.213 Obesity complicating pregnancy, third trimester (principal); O99.283 Endocrine, nutritional and metabolic diseases complicating pregnancy, third trimester; E03.9 Hypothyroidism, unspecified; O09.10 Supervision of pregnancy with history of ectopic pregnancy, unspecified trimester; F41.9 Anxiety disorder, unspecified; Z3A.36 36 weeks gestation of pregnancy; O99.343 Other mental disorders complicating pregnancy, third trimester
CPT/HCPCS: 59025; 59050; 99218; G0378

== ENCOUNTER → 2022-01-24 | Outpatient (CLI) | payer OTHER, MEDICAID, SELFPAY ==
--- NOTE | 2022-01-24 12:30 | US_ITS ---
ACR Level 3 findings have been noted. An addendum which confirms receipt of the report will follow. INDICATION: WEEKLY BPP EXAMINATION: Ultrasound US Biophysical Profile W/O Nonst TECHNIQUE: Transabdominal pelvic ultrasound was performed. COMPARISON: January 20, 2022 correlating with February 16, 2022 delivery date Provided EGA: 36 weeks 5 days FINDINGS: INTRAUTERINE GESTATION(s): Single. HEART MOTION is 133 bpm. AMNIOTIC FLUID INDEX (FELICE): 7.7 cm BIOPHYSICAL PROFILE (BPP): 08/28 -- Breathin/2. -- Movement: 2/2. -- Tone: 2/2. --FELICE: 2/2. PRESENTATION: Cephalic PLACENTA: Posterior fundal, grade 1. There is no placenta previa or abruption. CERVIX: The cervix is obscured by cranial shadow. US/Biophysical Prof W/O Non Stres IMPRESSION: Single live intrauterine with current cephalic presentation and normal heart rate. Biophysical profile, decreased at 6 out of 8 on today''s exam. FELICE 7.7 cm (previously 8.1 cm) Electronically Signed: Mohan Castillo MD at 7:03 EDT ,
== END | disposition home or self-care (01) ==
LOC: OPUS 12:29
PROVIDERS: PCP Family Medicine; Visit Provider Obstetrics & Gynecology
DX: O99.213 Obesity complicating pregnancy, third trimester (principal); Z3A.36 36 weeks gestation of pregnancy
CPT/HCPCS: 76819

== ENCOUNTER → 2022-01-28 | Outpatient (CLI) | payer OTHER, MEDICAID, SELFPAY ==
--- NOTE | 2022-01-28 13:58 | US_ITS ---
STUDY: SECOND AND THIRD TRIMESTER OBSTETRICAL ULTRASOUND - LIMITED REASON FOR EXAM: Female, 31 years old enlarged bladder -- please evaluate kidney sizes LMP: 05/12/2021. PRIOR ULTRASOUND: Comparison is made with prior study 01/24/2022. TECHNIQUE: Transabdominal TECHNICAL QUALITY: Adequate. FINDINGS: There is a single intrauterine fetus. The fetus is in a cephalic presentation. There is demonstrated cardiac activity with a heart rate of 140 bpm. There is a normal amniotic fluid volume. The largest amniotic fluid pocket measures 4.2 cm x 3.5 cm. The amniotic fluid index (FELICE) is 10.1 cm. The placenta is anterior in location and is not low lying. There are Grade 2 placental changes. The cervix was not measured due to the head positioning. BIOMETRY: Age by LMP: 37 weeks, 2 days. RONALDO by LMP: 02/16/2022. age by prior US: 37 weeks, 2 days. RONALDO by prior US: 02/16/2022. The right kidney measures 3.6 times by 1.8 cm x 2 cm. The left kidney measured 3.7 cm x 1.9 cm x 1.6 cm. US/OB Limited (No Biometrics) IMPRESSION: Live intrauterine gestation with mean gestational age of 37 weeks and 2 days. Electronically Signed: Nicanor Pratt MD at 15:20 EST ,
== END | disposition home or self-care (01) ==
LOC: OPUS 13:57
PROVIDERS: PCP Family Medicine; Visit Provider Obstetrics & Gynecology
DX: O99.280 Endocrine, nutritional and metabolic diseases complicating pregnancy, unspecified trimester (principal); E03.9 Hypothyroidism, unspecified; O99.019 Anemia complicating pregnancy, unspecified trimester; Z30.9 Encounter for contraceptive management, unspecified; O99.210 Obesity complicating pregnancy, unspecified trimester; O34.219 Maternal care for unspecified type scar from previous cesarean delivery; R00.9 Unspecified abnormalities of heart beat; F41.9 Anxiety disorder, unspecified; Z3A.37 37 weeks gestation of pregnancy
CPT/HCPCS: 76815

== ENCOUNTER → 2022-01-31 | Outpatient (CLI) | payer OTHER, MEDICAID, SELFPAY ==
--- NOTE | 2022-01-31 12:27 | US_ITS ---
STUDY: OBSTETRICAL ULTRASOUND - BIOPHYSICAL PROFILE REASON FOR EXAM: Female, 31 years old abnormal test LMP: 05/12/2021. PRIOR ULTRASOUND: Comparison is made with prior study dated 01/28/2022. TECHNIQUE: Transabdominal TECHNICAL QUALITY: Adequate. FINDINGS: There is a single intrauterine fetus. The fetus is in a cephalic presentation. There is demonstrated cardiac activity with a heart rate of 137 bpm. There is a normal amniotic fluid volume. The largest amniotic fluid pocket measures 4.2 cm. The amniotic fluid index (FELICE) is 7.65 cm. The placenta is anterior in location and is not low lying. There are Grade 2 placental changes. Age by LMP: 37 weeks, 5 days. RONALDO by LMP: 02/16/2022. age by prior US: 37 weeks, 5 days. RONALDO by prior US: 02/16/2022. BIOPHYSICAL PROFILE: Breathing Movements (FBM): 2 Gross Body Movements (GBM): 2 Tone (FT): 2 Amniotic Fluid Volume (AFV): 2 TOTAL SCORE: / 8 US/Biophysical Prof W/O Non Stres IMPRESSION: Normal biophysical profile of 10/28. Electronically Signed: Nicanor Pratt MD at 15:12 EST ,
== END | disposition home or self-care (01) ==
LOC: OPUS 12:26
PROVIDERS: PCP Family Medicine; Visit Provider Obstetrics & Gynecology
DX: O28.9 Unspecified abnormal findings on antenatal screening of mother (principal)
CPT/HCPCS: 76819

== ENCOUNTER 2022-02-06 05:00 | Inpatient (IN) | payer OTHER, MEDICAID, SELFPAY ==
[2022-02-06] VITALS (15 sets, daily range): BP systolic 109–140; BP diastolic 46–75; PULSE 79–105; RESP 12–25; TEMP 36.2–37; O2SAT 94–97; BMI 57.9
[2022-02-06] MEDS: Lactated Ringers 1,000 ML 999 ML IV (05:10)
[2022-02-06 05:36] LABS: Absolute Lymphocyte Count 2.39 X10^3/uL (0.83-4.51); Absolute Neutrophil Count 8.7 X10^3/uL (2.0-7.7); Basophil# 0.03 X10^3/uL; Basophil% 0.3 % (0-1); Eosinophil# 0.15 X10^3/uL; Eosinophils% 1.3 % (0-5); Hematocrit 32.6 % (37-47); Hemoglobin 10.1 g/dL (12.0-15.0); Lymphocyte # 2.39 X10^3/ul (0.83-4.51); Lymphocyte % 19.9 % (19-41); Mean Corpuscular Hgb 25.3 pg (27.0-32.0); Mean Corpuscular Volume 81.7 fL (81-99); Mean Platelet Vol. 9.4 fl (6.2-12.0); Monocyte# 0.52 X10^3/uL; Monocyte% 4.3 % (0-10); NRBC Flagged by Analyzer 0 % (0-5); Neutrophil % 72.5 % (47-70); Platelet Count 403 K/mm3 (150-450); RBC Distribution Width CV 17.2 % (11.6-14.6); RBC Distribution Width SD 50.7 fl (35.1-43.9); Red Blood Count 3.99 M/mm3 (4.2-5.4)
[2022-02-06] MEDS: Lactated Ringers 1,000 ML 150 ML IV (06:24)
[2022-02-06] MEDS: Sodium Citrate/Citric Acid 30 ML UDC PO (07:35)
[2022-02-06] MEDS: Acetaminophen 500 MG Tablet 1000 MG PO ×3 (07:35→21:38)
--- NOTE | 2022-02-06 07:49 | HP.PCM.OB_ITS ---
HPI - General General Date of Admission: 02/06/22 HPI Narrative SIGIFREDO GOMEZ, is a 31 y/o who presents to L&D for a scheduled repeat section. She is being delivered at 38 weeks 4 days for persistent borderline low FELICE (6-7) and persistence of bpp's 08/28 and 10/30, she is morbidly obese. Maternal Data Information RONALDO Calculator Estimated Delivery Date Method Current WG Current Estimate 02/16/22 Manual 38w 4d Other Estimates 02/16/22 Ultrasound #1 38w 4d PFSH PFSH Medical History (Updated 02/06/22 @ 06:39 by Vianney Fonseca) Acute appendicitis Anxiety Autonomic disorder Oligohydramnios Tachycardia Thyroid disorder Home Medications ndtosyye-wat-Ua-FA 1 mg tablet 1 tab PO 10/14/21 [History Last Taken 02/05/22 21:00 1 tab] ferrous sulfate 142 mg (45 mg iron) tablet,extended release (Slow Fe) 142 mg PO DAILY 02/06/22 [History Last Taken 02/05/22 12:00] levothyroxine 25 mcg tablet (Synthroid) 25 mcg PO DAILY 02/06/22 [History Last Taken 02/05/22 06:00 1 tab] Allergy/AdvReac Type Severity Reaction Status Date / Time No Known Allergies Allergy Verified 02/06/22 05:22 Family History Father Diabetes Hypertension Mother Jose Angel's disease Other Rheumatoid arthritis Surgical History delivery delivered History of tonsillectomy and adenoidectomy S/P appendectomy Social History Smoking Status: Never smoker alcohol intake: never substance use type: does not use seatbelt use: always do you feel safe at home: Yes additional social history: Wejdadc-Esdyf-Yvlrpzyz Patient is [employer] History 2 Elective abortions Hx Para 1 Spontaneous abortions Hx # Term Pregnancies Ectopic pregnancies Hx # Pregnancies Multiple births # of living children 1 Past Pregnancies Del. Date Name GA/Weeks Outcome Route Bth Weight Gen Labor Lgth Anesthesia Del Locatn Provider FOB 02/07/20 Yair 39 live - full term 7lbs 4oz Male epidural [facility] Delivery Date: 02/07/20 Last Updated by: Sintia Knight SROM; CPD AoD 8 cm; LTCS; Moderate meconium Visit Details Expected Delivery Route/Plan RLTCS Plans Covid status: discussed Flu vaccine: discussed Tdap vaccine: given Rhogam: na LARC form signed: yes Problem list reviewed and updated with the most current plan of care details and appropriate orders placed. Relevant counseling for the gestational age provided. Continue routine care and follow up unless otherwise noted in visit notes/problem list details OB Flowsheet Initial Weight: Not Recorded Date -?-?-?-?-?-?-?-?-?-?-?-?- EGA Weight BP Urine Prot -?-?-?-?-?-?-?-?-?-?-?-?- Glucose FHR FuHt Pres Dilation -?-?-?-?-?-?-?-?-?-?-?-?- Effaced St Visit Note 07/17/21 -?-?-?-?-?-?-?-?-?-?-?-?- 9w 3d 302 lb 4 oz 144/78 -?-?-?-?-?-?-?-?-?-?-?-?- 180 -?-?-?-?-?-?-?-?-?-?-?-?- - CRL cons wit h lmp 07/31/21 -?-?-?-?-?-?-?-?-?-?-?-?- 11w 3d 302 lb 4 oz 132/78 Nega tive -?-?-?-?-?-?-?-?-?-?-?-?- Negative -?-?--?-?-?-?-?-?-?-?-?-?- -work in for i tchy red rash inner right groin, see exam 08/15/21 -?-?-?-?-?-?-?-?-?-?-?-?- 13w 4d 306 lb 112/84 Negative -?-?-?-?-?--?-?-?-?-?-?-?- Negative 150 -?-?-?-?-?-?-?-?-?-?-?-?- SM- no vb crampi ng repeta tsh today 09/13/21 -?-?-?-?-?-?-?-?-?-?-?-?- 17w 5d 308 lb 124/66 Negative -?-?-?-?-?-?-?-?-?-?-?-?- Negative 150 -?-?-?-?-?-?-?-?-?-?-?-?- sM- no vb lof no reuglar ctx 10/10/21 -?-?-?-?-?-?-?-?--?-?-?-?- 21w 4d 314 lb 134/72 Negative -?-?-?-?-?-?-?-?-?-?-?-?- Negative 145 -?-?-?-?-?-?-?-?-?-?-?-?- SM- no vb lof go od fm no regular ctx needs anatomy scan 11/07/21 -?-?-?-?-?-?-?-?-?-?-?-?- 25w 4d 316 lb 116/78 Negative -?-?-?-?-?-?-?-?-?-?-?-?- Negative 139 -?-?-?--?-?-?-?-?-?-?-?-?- JV- no lof, vagi nal bleeding, or cramping. plan nsts at 36 weeks due to obesity. 2nd glucola ordered. 11/27/21 -?-?-?-?-?-?-?-?-?-?-?-?- 28w 3d 317 lb 4 oz 124/72 Nega tive -?-?-?-?-?-?-?-?-?-?-?-?- Negative 152 -?-?-?-?-?-?-?-?-?-?-?-?- MH-No VB, LOF. G ood FM. US 12/03 to recheck placenta. Wants BS with RCS and will need to sign title 19 12/12/21 -?-?-?-?-?-?-?-?-?-?-?-?- 30w 4d 322 lb 8 oz 138/81 Nega tive -?-?-?-?-?-?-?-?-?-?-?-?- Negative 137 -?-?-?-?-?-?-?-?-?-?-?-?- JV- placenta no longer previa. no complaints. plan for weekly nsts 36 weeks and on. rpt section with bs at 39 weeks. 12/25/21 -?-?-?-?-?-?-?-?-?-?-?-?- 32w 3d 322 lb 8 oz 127/79 Nega tive -?-?-?-?-?-?-?-?-?-?-?-?- Negative 148 -?-?-?-?-?-?-?-?-?-?-?-?- MH-No VB, LOF. G ood FM. Signed title 19 for bilat salpingectomy 01/10/22 -?-?-?-?-?-?-?-?-?-?-?-?- 34w 5d 322 lb 114/58 -?-?-?-?-?-?-?-?-?-?-?-?- 140 36 -?-?-?-?-?-?-?-?-?-?-?-?- SM- no vb lof go od fm no regular ctx 01/22/22 -?-?-?-?-?-?-?-?-?-?-?-?- 36w 3d 323 lb 8 oz 97/70 Nega tive -?-?-?-?-?-?-?-?-?-?-?-?- Negative 126 -?-?-?-?-?-?-?-?-?-?-?-?- JV- GBS collecte d. pt just barely made cut off for normal fluid. will check again on thursday and if low will delivery. 01/29/22 -?-?-?-?-?-?-?-?-?-?-?-?- 37w 3d 323 lb 4 oz 133/80 Nega tive -?-?-?-?-?-?-?-?-?-?-?-?- Negative 145 -?-?-?-?-?-?-?-?-?-?-?-?- JV- FELICE still 8. 5 cm today, continues to be borderline low and pt failing bpps often (getting 08/28, then comes in for nst and gets 10/28), plan for delivery between between 38-39) will work on scheduling now. 02/05/22 -?-?-?-?-?-?-?-?-?-?-?-?- 38w 3d 327 lb 6 oz 126/75 Nega tive -?-?-?-?-?-?-?-?-?-?-?-?- Negative 140 42 -?--?-?-?-?-?-?-?-?-?-?-?- LC-has c/s sched uled for tomorrow. active fm. no lof,vb,ctx. ROS Constitutional Constitutional: Denies change in weight, fatigue, fever(s), headache(s), poor appetite or weakness Eyes Eyes: Denies blurry vision, change in vision, seeing flashes or spots in vision ENT HEENT: Denies dizziness, headache(s), loss taste/smell or sore throat Cardiovascular Cardiovascular: Denies chest pain, dizziness, dyspnea, irregular heart rhythm, leg edema, palpitations, rapid heart rate or vomiting Respiratory/Chest Respiratory/Chest: Denies chest tightness, cough, dyspnea or breast pain Gastrointestinal Gastrointestinal: Denies abdominal pain, anorexia, constipation, cramping, diarrhea, hemorrhoids, vomiting or weight changes Genitourinary Genitourinary: Denies dysuria, flank pain, genital lesions, genital pain, urinary frequency or urinary urgency Musculoskeletal Musculoskeletal: Denies back pain, difficulty walking, joint pain, limited range of motion, muscle cramps or numbness Integumentary Integumentary: Denies lesions or unusual bruising Neurologic Neurologic: Denies abnormal movements, abnormal speech, dizziness, numbness, seizure-like activity or syncope Psychiatric Psychiatric: Denies anxiety, behavioral changes, change in appetite, change in libido, cognitive impairment, confusion, depression, difficulty concentrating, hallucinations or suicidal thoughts Endocrine Endocrinology: Denies excessive sweating, polydipsia or polyuria Hematologic/Lymphatic Hematologic/Lymphatic: Denies easy bleeding, easy bruising or lymphadenopathy Allergic/Immunologic Allergic/Immunologic: Denies itchy eyes, lip swelling, seasonal rhinorrhea, rhinitis, throat swelling, tongue swelling, eczemia, wheezing or asthma Vital Signs Vital Signs Vital Signs: 02/06/22 05:31 Temperature 97.9 F Temperature Source Temporal Pulse Rate 105 H Respiratory Rate 18 Blood Pressure 122/59 H Blood Pressure Mean 80 Blood Pressure Source Monitor Blood Pressure Position Semi-Fowlers Blood Pressure Location Right Arm Pulse Ox 95 Oxygen Delivery Method Room Air Weight Weight: 327 lb 2.656 oz Body Mass Index (BMI) 57.9 Physical Exam Const alert, oriented x3, no apparent distress and healthy appearing General Appearance: cooperative; Negative for anxious HEENT normocephalic Face and Sinus: normal facial exam Eyes EOMs intact bilaterally and no scleral icterus General Eye: normal appearance of both eyes Neck full ROM and supple Lymph Lymphatic: no lymphadenopathy noted Chest Chest: abnormal inspection of the chest Resp normal respiratory effort Effort and Inspection: able to speak in complete sentences Cardio regular rate GI soft to palpation and non-tender Inspection: gravid Palpation: soft; Negative for tender external exam normal Back/Spine no CVA tenderness Extremity normal to inspection, full ROM and no clubbing, cyanosis or edema General Extremity: Negative for calf tenderness or edema Skin Lesions: no lesions Rashes: no rashes Psych mental status grossly normal Labs Labs Labs: Blood Type A POSITIVE Antibody Screen NEGATIVE Hct 32.6 % (37-47) L Hgb 10.1 g/dL (12.0-15.0) L Obstetrics US Syphilis Total Ab Non-reactive Rubella IgG Antibody Reactive (Nonreactive) Hep Bs Antigen Non-Reactive (Nonreactive) Chlamydia DNA (JENNI) Negative (Negative) Neisseria gonorrhoeae DNA (JENNI) Negative (Negative) HIV 1&2 Antibody Non-Reactive (Nonreactive) Glucose 1 Hr 50 gm 136 mg/dL (70-140) Rhogam given: No Miscellaneous Test Assessment & Plan (1) Supervision of normal : COMMENT: PRR RONALDO 02/16/21 Lay Mazariegos Delmar (2) : QUALIFIERS: Weeks of gestation: 38 weeks Qualified Code(s): Z3A.38 - 38 weeks gestation of COMMENT: GBS neg, NIPT low risk and previous carrier negative. Anatomy US normal but need follow-up heart views, FU views nl (3) Obesity affecting : COMMENT: 1 TM GCT, encouraged healthy weight gain. weekly bpp (4) Previous delivery affecting : COMMENT: plan RLTCS; wants BS, scheduled for RLTCSBS 02/06 At 7:10 with SM (5) Contraception management: COMMENT: Wants BS with RCS. Signed title 19: 12/25/21 (6) Anemia affecting : COMMENT: Ferrous gluconate daily; iron studies (7) Hypothyroid in , antepartum: COMMENT: discussed and ordered t4, if abnormal our office will order medication (8) Abnormal test: COMMENT: admits for IVFs, BMZ, repeat BPP in am BPP 01/24/2022- 08/28(AFI7.7, MVP=3), NST reactive in WP=10/30 BPP (9) Low vitamin B12 level: COMMENT: add OTC Vitamin B12 1000mg daily (10) Tachycardia: COMMENT: was on metoprolol, stopped in . possible charles. (11) Anxiety: COMMENT: discussed meds, celexa in past. counseling encouraged; stable PLAN: Plan plan for repeat section today as the risks outweigh benefits of maintaining . eras protocol ordered
--- NOTE | 2022-02-06 08:11 | FALS_PTH ---
PATIENT: SIGIFREDO GOMEZ LOC: [facility] U#:[id number] AGE/SX: 31/F ROOM: WP006 RE02/06/[address]: Dr. Lyubov Smith DO : 1990 BED: 1 DIS: 02/08/2022 SPEC #: [id number] RECD: 02/06/22 09:18 STATUS: BRISA CHANDRAKANT #: [id number] ASHLEY: 02/06/22 08:[address]: Lyubov Smith DEPT: SURGICAL PATHOLOGY RECD BY: Candida Simmons ENTERED: 02/06/22 09:29 SP TYPE: FALL TUBES OTHR DR: Dr. Martinez Chappell DO Tissues: Fallopian tube Procedures: Surgery Specimen Level II HEADER OPERATION: Tubal ligation PRE-OP DIAGNOSIS: Tubal ligation TISSUE SUBMITTED: Fallopian tube MICROSCOPIC DIAGNOSIS Bilateral fallopian tubes, salpingectomy: Bilateral fallopian tubes, no pathologic diagnosis. /ANDRES 02/07/22 MICROSCOPIC DESCRIPTION Slides are reviewed. GROSS DESCRIPTION Received in fixative is one container labeled with the patient's name and designated bilateral fallopian tubes. Received in fixative is one container labeled with the patient's name and designated bilateral fallopian tubes. The specimen consists of bilateral fallopian tubes including fimbrial ends. The right fallopian tubes is identified by a suture. Right fallopian tube measures 5.5 cm in length and 0.5 cm in diameter. The left fallopian tube measures 3.5 cm in length and 0.5 cm in diameter. Also present in the container is detached segment of fallopian tube measuring 3.0 cm in length and 0.5 cm in diameter. Sections reveal unremarkable cut surfaces. Raised Printer sections are submitted in two cassettes as follows: 1 right fallopian tube, 2 ? left fallopian tube and detached segment of fallopian tube. / ANDRES:marina 02/06/2022 TC:4 CPT: 22067 x2
[2022-02-06] MEDS: Oxytocin 15 Units/NS 250ml 15 UNITS/250 ML IV.SOLN 250 UNITS IV (08:13)
[2022-02-06] MEDS: Lactated Ringers 1,000 ML 100 ML IV (09:12)
[2022-02-06 09:20] LABS: Pathology Specimen OB SEE PATHOLOGY REPORT
[2022-02-06] MEDS: Ketorolac 30 MG/ML Syringe IV ×3 (09:54→21:38)
[2022-02-06] MEDS: HYDROmorphone 1 MG/ML Syringe IV ×3 (10:17→21:39)
--- NOTE | 2022-02-06 10:28 | EX.PCM.OBRPT ---
Assessment & Plan (1) Supervision of normal : COMMENT: PRR RONALDO 02/16/21 Lay STARKS Yair Delmar (2) : QUALIFIERS: Weeks of gestation: 38 weeks Qualified Code(s): Z3A.38 - 38 weeks gestation of COMMENT: GBS neg, NIPT low risk and previous carrier negative. Anatomy US normal but need follow-up heart views, FU views nl (3) Obesity affecting : COMMENT: 1 TM GCT, encouraged healthy weight gain. weekly bpp (4) Previous delivery affecting : COMMENT: plan RLTCS; wants BS, scheduled for RLTCSBS 02/06 At 7:10 with SM (5) Contraception management: COMMENT: Wants BS with RCS. Signed title 19: 12/25/21 (6) Anemia affecting : COMMENT: Ferrous gluconate daily; iron studies (7) Hypothyroid in , antepartum: COMMENT: discussed and ordered t4, if abnormal our office will order medication (8) Abnormal test: COMMENT: admits for IVFs, BMZ, repeat BPP in am BPP 01/24/2022- 08/28(AFI7.7, MVP=3), NST reactive in WP=10/30 BPP (9) Low vitamin B12 level: COMMENT: add OTC Vitamin B12 1000mg daily (10) Tachycardia: COMMENT: was on metoprolol, stopped in . possible charles. (11) Anxiety: COMMENT: discussed meds, celexa in past. counseling encouraged; stable Maternal Data Information RONALDO Calculator Estimated Delivery Date Method Current WG Current Estimate 02/16/22 Manual 38w 4d Other Estimates 02/16/22 Ultrasound #1 38w 4d Final RONALDO: 02/16/22 Final RONALDO Source: US <20 weeks Details Operative Information Date of Procedure: 02/06/22 Pre-Operative Diagnosis: 31 y/o @ 38 weeks 4 days, oligohydramnios, persistent 6/8 bpp's and morbid obesity, prior section, desires permanent sterilization Post-Operative Diagnosis: 31 y/o @ 38 weeks 4 days, oligohydramnios, persistent 6/8 bpp's and morbid obesity, prior section, desires permanent sterilization Indications for : Repeat Elective Classification: Scheduled Procedure Type: low transverse certified control systems technician #1: Cali Flores Type of Anesthesia: Spinal Anesthesiologist: Jenn Matias Antibiotic Given: Ancef 3 grams IV x1 Drain: Brown to straight drain Estimated Blood Loss: 500cc Fluids Replaced: 700cc Procedure Start Time: 07:44 Time of Delivery: 08:00 Findings Description of Procedure: The patient is a 31 y/o @ 38 weeks 4 days presented for repeat and BTL. Spinal anesthesia was placed without difficulty. Brown catheter was placed. The patient was placed in the dorsal supine position with leftward tilt. Patient was prepped and draped in the normal sterile fashion. Pfannenstiel skin incision was made with the scalpel and carried through to the underlying layer of fascia with the scalpel. Fascia was nicked in the midline and the incision extended laterally. The rectus bellies were dissected off superiorly and inferiorly with out complication both sharply and bluntly. The peritoneum was entered digitally. The incision was stretched and a low transverse uterine incision was made with the scalpel. The infant's head was delivered atraumatically followed by the anterior and posterior shoulders without complication the rest of the infant delivered. The cord was clamped and cut and the was handed off to awaiting nurse. The placenta was delivered spontaneously immediately following and was noted to be intact and have a three-vessel cord. The uterus was exteriorized cleared of all clots and debris, and the incision was closed in a double layer closure using #1 Monocryl. The ovaries and fallopian tubes were noted to be within normal limits. The right fallopian tube was grasped with a parisa clamp and the underlying mesosalpix was cauterized and cut to the level of the cornua. The same procedure was performed on the opposite side. The uterus was returned to the maternal abdomen and gutters were cleared of all clots and debris. The peritoneum was closed with 3-0 Monocryl in a running fashion. Gloves were changed prior to fascial closure. Fascia was closed with 0 PDS in a running fashion. Subcutaneous tissue was copiously irrigated and the skin was closed with 3-0 Monocryl in a subcuticular fashion. Mepilex dressing was applied without complication. Patient was taken to recovery in stable condition. It was discussed with the patient that based on the clinical information obtained during this encounter, combined with her history, at this time I would recommend for future deliveries if further pregnancies are desired. Presentation: Positive for Vertex Amniotic Membrane Rupture Type: Artificial Amniotic Fluid Description: Clear Cord Vessel Description: 3 Vessels Cord Entanglement: None Infant A Gender: Female (1 minute): 8 (5 minute): 9 Delayed Cord Clamping: Yes Complications Risks of Surgery Discussed w/Patient: Bleeding, Anesthesia Risks, Infection, Need for Future C-Sections, Permanency, Failure Rate of 1 to 2%, Injury to surrounding structure(s) including bowel and bladder and Availability of other non-permanent control options Multi Select Codes Urinary/Genital Urinary/Genital CPT Codes: 58664 delivery+PP Care(JENNIFER) and Other Procedure See Report (bilateral salpingectomy )
--- NOTE | 2022-02-06 12:00 | NURSING ---
Report received from Nadja GLASS, taking over pt care at this time.
[2022-02-06] MEDS: Enoxaparin 40 MG/0.4 ML Syringe SC (20:04)
[2022-02-06] MEDS: 0.9% Saline Lock 10 ML Syringe IV (21:40)
[2022-02-07] VITALS (7 sets, daily range): BP systolic 118–157; BP diastolic 57–92; PULSE 83–93; RESP 16–18; TEMP 36.6–36.8; O2SAT 16–98
[2022-02-07] MEDS: HYDROmorphone 1 MG/ML Syringe IV (02:10)
[2022-02-07] MEDS: 0.9% Saline Lock 10 ML Syringe IV ×2 (02:11→13:07)
[2022-02-07] MEDS: Acetaminophen 500 MG Tablet 1000 MG PO ×4 (03:07→21:30)
[2022-02-07] MEDS: Ketorolac 30 MG/ML Syringe IV (03:08)
[2022-02-07 06:15] LABS: Hematocrit 28.1 % (37-47); Hemoglobin 8.6 g/dL (12.0-15.0); Mean Corp Hgb Conc 30.6 g/dL (32-36); Mean Corpuscular Hgb 25.4 pg (27.0-32.0); Mean Corpuscular Volume 82.9 fL (81-99); Mean Platelet Vol. 9.2 fl (6.2-12.0); Platelet Count 315 K/mm3 (150-450); RBC Distribution Width CV 17.3 % (11.6-14.6); RBC Distribution Width SD 52.1 fl (35.1-43.9); Red Blood Count 3.39 M/mm3 (4.2-5.4); White Blood Count 10.7 K/mm3 (4.4-11.0)
[2022-02-07] MEDS: Senna/Docusate Sodium 1 Tablet PO (10:11)
[2022-02-07] MEDS: Naproxen 500 MG Tablet PO ×2 (10:11→18:15)
[2022-02-07] MEDS: Enoxaparin 40 MG/0.4 ML Syringe SC (10:11)
--- NOTE | 2022-02-07 11:19 | PCM.PN.OB ---
Subjective Subjective Patient is laying in bed comfortably without complaints. She states that she slept on an off during the night. Lochia is mild and pain is minimal. Her only complaint is that her incision pimentel from time to time and she can not get comfortable. Objective Data Objective Data Vital Signs: Vital Signs Temp Pulse Resp BP Pulse Ox O2 Del Method 97.8 F 83 16 128/57 H 96 Room Air 02/07/22 08:32 02/07/22 08:32 02/07/22 08:32 02/07/22 08:32 02/07/22 08:32 02/07/22 08:32 Oxygen Delivery Method Room Air Weight: 327 lb 2.656 oz Body Mass Index (BMI) 57.9 Intake & Output: Intake and Output for Last 24 Hours 02/05/22 02/06/22 02/07/22 23:59 23:59 23:59 Intake Total 3235 / 3235 Output Total 525 / 525 450 / 450 Balance 2710 / 2710 -450 / -450 Lab / Micro Data Result Diagrams: 02/07/22 06:10 Labs: Laboratory Results - last 24 hr 02/07/22 06:10: WBC 10.7, RBC 3.39 L, Hgb 8.6 L, Hct 28.1 L, MCV 82.9, MCH 25.4 L, MCHC 30.6 L, RDW Std Deviation 52.1 H, RDW Coeff of Khadar 17.3 H, Plt Count 315, MPV 9.2 ROS Constitutional Constitutional: Reports systems reviewed and no addt'l complaints, except as documented Cardiovascular Cardiovascular: Denies chest pain, dizziness, dyspnea or irregular heart rhythm Respiratory/Chest Respiratory/Chest: Denies cough, pain on inspiration or shortness of breath at rest Gastrointestinal Gastrointestinal: Denies abdominal pain, nausea or vomiting Genitourinary Genitourinary: Denies burning urination Musculoskeletal Musculoskeletal: Denies muscle cramps, muscle spasms or muscle weakness Neurologic Neurologic: Denies confusion, dizziness, headache(s) or lack of coordination Psychiatric Psychiatric: Denies anxiety, behavioral changes or depression Physical Exam HEENT normocephalic Resp normal respiratory effort and normal air movement GI soft to palpation, non-tender and non-distended Rectal Exam: other Other Details: Incision is clean, dry, and intact no CVA tenderness Extremity normal to inspection General Extremity: edema bilateral (trace ) Assessment & Plan (1) Status post section: COMMENT: repeat section with BS, baby Girl Lay PLAN: s/p LTCS PPD # 1 1. routine post care 2. breast feeding- support given 3. rh positive 4. rubella immune 5. anemia- will replace with iron infusion today 6. postop pain- will add in muscle relaxer to medication regimen.
--- NOTE | 2022-02-07 11:23 | DCINST_ITS ---
Discharge Instructions Diet Discharge Diet: No restrictions Activity Discharge Activity: May Not Drive (for 2 weeks or while taking narcotic pain medications.), May Shower and May Take a Tub Bath (in 7 days.) May resume sexual activity in: 4-6 weeks Weight Bearing Status: Full weight bearing Lifting Restrictions: 20 pounds Dressing / Incision Call your doctor if your incision/area has: Continuous Slow Oozing, Sudden Increased Bleeding, Increased Pain/ Swelling, Increased Redness and Foul Smelling Discharge Call your doctor if you observe: Fever of 101 or Higher and Using more than 1 pad per hour Suture Line Care: Avoid Pulling/Pushing and Avoid Pinching/Bending Cleanse incision/area with: Soap & Water and Keep Dressing Clean & Dry Follow Up Care Please Follow Up With: Lyubov Smith DO When: Call [phone] to make an appointment for an incision check in 1-2 weeks. Test Results: Test results from this visit will be discussed in further detail at your follow- up appointment, if applicable. Discharge Plan Admission Admit Date/Time: 02/06/22 05:00 Primary Reason for Your Visit: repeat section and removal of fallopian tubes Attending Provider: Lyubov Smith Primary Care Provider: Martinez Chappell Discharge Orders/Prescriptions Prescriptions: New naproxen 250 mg tablet 500 mg PO Q8H PRN PRN (Reason: Mild Pain ) Qty: 30 0RF oxycodone-acetaminophen [Percocet] 5-325 mg tablet 1 tab PO Q4H PRN (Reason: pain) 7 Days Qty: 30 0RF Continued rubkydbc-efl-Kq-FA 1 mg Tablet 1 tab PO levothyroxine [Synthroid] 25 mcg tablet 25 mcg PO DAILY Slow Fe 142 mg (45 mg iron) tablet extended release 142 mg PO DAILY Referrals / Follow Up: Martienz Chappell DO [Primary Care Provider] - Disposition Disposition (needs filled in before D/C Order can be placed): Home, Self Care
[2022-02-07] MEDS: oxyCODONE 5 MG Tablet PO ×2 (12:20→21:30)
--- NOTE | 2022-02-07 15:45 | CASEMGMT ---
Social Work Assessment Labor and Delivery Unit Date of Referral: 02.06.22 Time of Referral: 150 Referred By: Dr. Lozada Date of Intervention: 02.07.2022 Time of Intervention: 1539 Reason for Referral: Maternal history anxiety; history of medication History obtained from: medical records, mother of baby (MOB) Marlen Dean; father of baby (FOB) Delmar Gravely present for part of conversation. Household composition: MOB, FOB, and older son live with MOB's parents at present, until able to move into new home. Home situation is reported as safe and adequate. Patient's parent/guardian status: ELIZABET is a 31 year old female, to the FOB for the last 1 year. Together for 4 years. ELIZABET denies any form of abuse, control or intimation in relationships. MOB and FOB now have 2 children together: Yair (02.07.2020) and baby girl Lay (02.06.2022). Medical History: ELIZABET is G2, P1 to 2 after delivering Lay. care adequate and starting at 9 weeks gestation. Infant delivered via delivery at 38 weeks. weight 3215 gm. Agpars 8 and 9 at 1 and 5 minutes of life respectively. 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 No reported issues with reading, writing, or learning. Financial Status: ELIZABET works at [employer]. 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 MOB's parents are reported as helpful as well. Supplies: MOB and FO reports to have all needed supplies including car seat, bassinet, clothing, diapers, wipes, and just purchased formula. Childcare/Caregiver(s): MOB, FOB, and MOB's parents. Transportation: No concerns. Programs/Agencies Involved: ELIZABET has medical through [facility]. Recently applied for food, and plans to reapply now that baby is born. Aware of WIC. Declines referrals such as [facility] or [facility]. Children Services/Legal Issues: None. Behavioral Health Issues: Mental Health History: MOB reports history of depression and anxiety with history of counseling at [facility] with German Ferguson. Reports did counseling after Yair was born, and if needed in the future would return to this counselor. MOB reports history of treatment with medications for both depression and anxiety, i particular Paxil prior to . MOB reports ti medications worked well but not okay to take during . MOB reports has taken Celexa as well with good results. Reports has been anxiety medication in the past but cannot remember which one. MOB scored a 14 on the [place] Depression scale this date, falling above the threshold for current depressive symptoms present. MOB denies any thoughts, plans, intent regarding suicide during this . Reports one time as a teen thought of suicide with a plan but was stopped by a friend. MOB reports this was a one time incident, and feels guilt and shame for considering suicide in the past. MOB reports reason to live in her children, family, orthodoxy family. MOB reports to things to look forward in life and that keep MOB future focused. Substance Use History: MOB denies. Family History: THALIA is reported to have high functioning autism, and recently started on medication for depression. Drug Screens: Maternal screen negative on 07.17.2021. Family/Social Stressors: MOB had to be off work for the last month or so due to related issues, recently moved into parental home while MOB and work on their on home. MOB has not been on any medications during . Support Systems: FOB is supportive but does at times due to autism needs things explained, such as MOB's emotions. Additional support from MOB's parents and descries MOB's mother as my best friend. Depression/Shaken Baby/Safe Sleeping: Reviewed shaken baby prevention, safe sleeping, and mod and anxiety disorder including that mothers and fathers are at risk. ASSESSMENT: Met with MOB and FOB in room, introducing to self and social work role. MOB and FOB both engaged in conversation, with MOB talking most but FOB engaging when elicited. MOB and FOB report to have all supplies needed, and adequate support from MOB's parents. FOB reports has to return to work after the weekend, but feels less stress due to having MOB's parents around to help MOB. Spoke with MOB alone for completion of depression screen, and FOB left without issue. MOB tearful when talking about past thoughts of suicide, and regret surrounding this. Overall, MOB with good eye contact, discussing insight into emotional health and need to address this to help mitigate distress. MOB expressed interest in restarting antidepressant medications if OBGYn willing to order. MOB reports has planned to go to PCP to get this restarted, but this will not be until February sometime. Emotional support offered to MOB, and encouragement for desire for self care. MOB accepted information on mood and anxiety disorders, as well [facility]. MOB reports awareness of where would return to counseling if needed. Spoke with Kari RN about MOB's interest in medication for depression if doctor feels appropriate. Reported MOB shared history of good results with both Jose and Karime. RN will speak with physician. PLAN: MOB and infant to discharge home when ready. Resources provided for home going. No other services requested or indicated. -YESSICA Joy, CONFLICT RESOLUTION PROFESSIONAL
--- NOTE | 2022-02-07 22:21 | NURSING ---
This RN reassessed H/A 1 hour after 10 mg oxyir given. Pt rates H/A still a 7/10 and gets better when she lays flat. RN notes pt took a shower 10 minutes after given Oxyir and notes pt sitting straight up in bed during reassessment. No change in behavior.
[2022-02-07] MEDS: NIFEdipine 30 MG Tablet PO (23:16)
[2022-02-08] MEDS: Naproxen 500 MG Tablet PO ×2 (01:44→10:15)
[2022-02-08 01:50] VITALS: BP 138/74; PULSE 86; RESP 18; TEMP 36.3; O2SAT 97
--- NOTE | 2022-02-08 01:53 | NURSING ---
Pt states headache is better. rating it a 3/10. Pt states she has right upper quadrant discomfort but believes it is gas. Jorge. edema of feet non pitting +1. RN notes BP trending downwards. Pt states otherwise she has no complaints.
[2022-02-08] MEDS: Acetaminophen/Butalbital/Caffe 1 Tablet 2 TABLET PO (03:26)
[2022-02-08] MEDS: oxyCODONE 5 MG Tablet PO ×3 (06:32→15:24)
--- NOTE | 2022-02-08 06:33 | NURSING ---
Pt states this am her headache was starting to increase in pain and rates it a 2/10 but a 0/10 while laying flat.
[2022-02-08 08:20] VITALS: BP 136/71; PULSE 88; RESP 18; TEMP 36.6; O2SAT 96
--- NOTE | 2022-02-08 08:28 | PCM.PN.OB ---
Subjective Subjective Patient doing well had headaches last night that were positional- had anesthesia consult, told to take fioricet. better this am. Tolerating PO. Ambulating and voiding without difficulty. feeding well. Denies chest pain, shortness of breath, calf pain/swelling, fevers, chills, lightheadedness. Objective Data Objective Data Vital Signs: Vital Signs Temp Pulse Resp BP Pulse Ox O2 Del Method 97.4 F L 86 18 138/74 H 97 Room Air 02/08/22 01:50 02/08/22 01:50 02/08/22 01:50 02/08/22 01:50 02/08/22 01:50 02/08/22 01:50 Oxygen Delivery Method Room Air Weight: 327 lb 2.656 oz Body Mass Index (BMI) 57.9 Intake & Output: Intake and Output for Last 24 Hours 02/06/22 02/07/22 02/08/22 23:59 23:59 23:59 Intake Total 3235 / 3235 110 / 110 Output Total 525 / 525 650 / 650 Balance 2710 / 2710 -540 / -540 Lab / Micro Data Result Diagrams: 02/07/22 06:10 ROS Constitutional Constitutional: Reports systems reviewed and no addt'l complaints, except as documented Cardiovascular Cardiovascular: Reports systems reviewed and no addt'l complaints, except as documented Respiratory/Chest Respiratory/Chest: Reports systems reviewed and no addt'l complaints, except as documented Gastrointestinal Gastrointestinal: Reports systems reviewed and no addt'l complaints, except as documented Physical Exam Const alert, oriented x3 and no apparent distress HEENT Head and Scalp: atraumatic Resp normal respiratory effort GI soft to palpation and non-tender Inspection: incision intact, healing well and drainage (none) Bimanual Exam - Vag & Uterus: uterus non-tender Uterus Palpation: uterus fundus firm (below Umbilicus) Assessment & Plan (1) Status post section: COMMENT: repeat section with BS, baby Girl Lay (2) headache: COMMENT: fioricet PRN if persistent reconsult anesthesia (3) Elevated blood pressure reading: COMMENT: pod1 started on procardia, will dc home on it, follow bps at home reviewed precautions PLAN: Plan s/p LTCS PPD # 2 1. routine post care 2. breast feeding- support given 3. rh positive 4. rubella immune
[2022-02-08] MEDS: Senna/Docusate Sodium 1 Tablet PO (10:15)
[2022-02-08] MEDS: Acetaminophen 500 MG Tablet 1000 MG PO (10:15)
[2022-02-08] MEDS: Enoxaparin 40 MG/0.4 ML Syringe SC (10:52)
[2022-02-08 12:21] VITALS: BP 122/66; PULSE 93; RESP 16; TEMP 37; O2SAT 98
== END 2022-02-08 16:25 | disposition home or self-care (01) | DRG 784 ==
PROVIDERS: Obstetrics & Gynecology; Admitting Provider Obstetrics & Gynecology; PCP Family Medicine; Visit Provider Obstetrics & Gynecology
PROC: 10D00Z1 Extraction of Products of Conception, Low, Open Approach (ICD-10-PCS; CPT 59514; principal; 2022-02-06 06:55)
DX: O34.211 Maternal care for low transverse scar from previous cesarean delivery (principal); O41.03X0 Oligohydramnios, third trimester, not applicable or unspecified; E66.01 Morbid (severe) obesity due to excess calories; E03.9 Hypothyroidism, unspecified; O99.284 Endocrine, nutritional and metabolic diseases complicating childbirth; O99.214 Obesity complicating childbirth; Z3A.38 38 weeks gestation of pregnancy; Z37.0 Single live birth; R03.0 Elevated blood-pressure reading, without diagnosis of hypertension; Z79.890 Hormone replacement therapy; O99.02 Anemia complicating childbirth; Z30.2 Encounter for sterilization
CPT/HCPCS: 59025; 59050; 85025; 85027; 86850; 86900; 86901; 88302; 99218; J1756; J7120; A4216; G0378; J2405

== ENCOUNTER → 2022-11-28 | Outpatient (CLI) | payer MEDICAID, SELFPAY ==
[2022-12-01 22:06] LABS: Chlamydia By Nucleic Acid AMP Negative (Negative); Gonococcus By Nucleic Acid AMP Negative (Negative)
== END | disposition home or self-care (01) ==
LOC: LABSPEC 16:52
PROVIDERS: PCP Family Medicine; Referring Provider Advanced Practice Midwife; Visit Provider Advanced Practice Midwife
DX: Z11.3 Encounter for screening for infections with a predominantly sexual mode of transmission (principal); Z20.2 Contact with and (suspected) exposure to infections with a predominantly sexual mode of transmission
CPT/HCPCS: 87070; 87205; 87491; 87591